=== PATIENT | male | born 1980 | race Caucasian/White ===

== ENCOUNTER 2017-01-30 02:25 | Inpatient (IN) | payer OTHER ==
[~2017-01-30] VITALS: Ht 175.3 cm; Wt 106.1 kg
[2017-01-30 02:43] LABS: BILIRUBIN,URINE NEGATIVE (NEG); GLUCOSE,URINE NEGATIVE (NEG); NITRITE,URINE NEGATIVE (NEG); PROTEIN,URINE 30 mg/dL (NEG-TRACE); UROBILINOGEN,URINE 0.2 mg/dL (0.2 mg/dL)
[2017-01-30] MEDS ORDERED: KETOROLAC TROMETHAMINE 30 MG/ML INJ. IV ONE (02:45)
[2017-01-30] MEDS ORDERED: fentaNYL PF VIAL 100 MCG/2 ML VIAL IV ONE ×2 (02:45→03:15)
[2017-01-30] MEDS ORDERED: IV NORMAL SALINE 1000ML BAG 1,000 ML IV ONE (02:45)
[2017-01-30 02:49] LABS: BACTERIA,URINE 0 /HPF (0-FEW); SQUAMOUS EPITHELIAL CELL,UR FEW /LPF
[2017-01-30 02:54] LABS: BASO % 0 % (0-3); EOS % 0 % (0-3); HEMATOCRIT 40.9 % (39.0-53.0); HEMOGLOBIN 13.6 g/dL (13.0-17.5); LYMPH # 2.4 x10^3/uL (1.0-4.8); LYMPH % 10 % (24-48); MEAN CORPUSCULAR HEMOGLOBIN 29 pg (25-35); MEAN CORPUSCULAR HGB CONC 33 g/dL (31-37); MEAN CORPUSCULAR VOLUME 87 fL (79-100); MONO % 6 % (0-9); NEUT % 84 % (31-73); PLATELET COUNT 300 x10^3/uL (140-400); RED BLOOD COUNT 4.73 x10^6/uL (4.30-5.70); WHITE BLOOD COUNT 23.1 x10^3/uL (4.0-11.0)
[2017-01-30] MEDS ORDERED: ONDANSETRON PF 4 MG/2 ML VIAL. IV ONE (03:00)
[2017-01-30 03:03] LABS: CREATININE 1.3 mg/dL (0.7-1.3); GFR 62.8; POTASSIUM 3.7 mmol/L (3.5-5.1)
[2017-01-30 03:18] LABS: PLT ESTIMATE ADEQUATE (ADEQUATE)
--- NOTE | 2017-01-30 03:21 | RAD ---
CT abdomen and pelvis without contrast Indication: Left flank pain. The patient has history of kidney stones. Axial imaging through the abdomen and pelvis was performed without contrast. PQRS STATEMENT One or more of the following individualized dose reduction techniques were utilized for this study: 1.Automated exposure control. 2.Adjustment of the mA and/orkVaccording to patient size. 3.Use of iterative reconstruction technique. No prior studies are available for comparison. The lung bases are clear. Liver and gallbladder are unremarkable. The pancreas and spleen are unremarkable. The right kidney contains tiny nonobstructing calculi. The left kidney is enlarged. There is fairly significant hydroureteronephrosis traced into the pelvis where there is a 5 millimeter calculus just above the UVJ. There is mild perinephric and periureteral stranding as well. The small and large bowel loops are normal caliber. There is no ascites. Impression: - 5 millimeter distal left ureteric calculus producing moderate hydroureteronephrosis. There are also tiny nonobstructing right renal calculi. Electronically signed by: Sergio Maxwell MD (Jan 30, 2017 03:19:49)
--- NOTE | 2017-01-30 03:26 | PHYS DOC ---
Past Medical History Past Medical History: Kidney Stone Past Surgical History: Other Additional Past Surgical Histo: RIGHT WRIST Alcohol Use: None Drug Use: None Adult General Chief Complaint Chief Complaint: FLANK PAIN HPI HPI 37-year-old male who's having extensive left lower quadrant pain that radiates somewhat into his left flank and left testicle. He states it's been this way for the last 3-4 hours. He had acute onset of his symptoms around 10 PM he states. He denies any dysuria or hematuria. He denies any fever or chills. He states he has had a kidney stone the past that felt somewhat similar. He denies any history of abdominal surgery. He denies any blood in his stool. He states he had a normal bowel movement earlier today. He has been able to eat and drink. Pt is speaking in complete sentences and in no acute distress at this time. He rates his pain a 10 out of 10 all localized to left lower quadrant. Review of Systems Review of Systems Constitutional: Denies fever or chills [] Eyes: Denies change in visual acuity, redness, or eye pain [] HENT: Denies nasal congestion or sore throat [] Respiratory: Denies cough or shortness of breath [] Cardiovascular: No additional information not addressed in HPI [] GI: Has abdominal pain, denies nausea, denies vomiting, bloody stools or diarrhea [] : Denies dysuria or hematuria [] Musculoskeletal: Denies back pain or joint pain [] Integument: Denies rash or skin lesions [] Neurologic: Denies headache, focal weakness or sensory changes [] Endocrine: Denies polyuria or polydipsia [] Current Medications Current Medications Current Medications Medications (Trade) Dose Ordered Sig/Lorene Start Time Stop Time Status Last Admin Dose Admin Fentanyl Citrate (Fentanyl 2ml Vial) 50 mcg 1X ONCE 01/30/17 03:15 01/30/17 03:25 DC 01/30/17 03:15 50 MCG Fentanyl Citrate 50 mcg 50 mcg 1X ONCE 01/30/17 02:45 01/30/17 03:06 DC 01/30/17 02:45 50 MCG Ketorolac Tromethamine (Toradol) 30 mg 1X ONCE 01/30/17 02:45 01/30/17 03:06 DC 01/30/17 02:45 30 MG Ondansetron HCl (Zofran) 4 mg 1X ONCE 01/30/17 03:00 01/30/17 03:06 DC 01/30/17 02:58 4 MG Sodium Chloride (Iv Sodium Chloride 0.9% 1000ml Bag) 1,000 ml @ 1,000 mls/hr 1X ONCE 01/30/17 02:45 01/30/17 03:44 DC 01/30/17 02:53 1,000 MLS/HR Allergies Allergies Allergies Coded Allergies Type Severity Reaction Last Updated Verified No Known Drug Allergies 01/30/17 No Physical Exam Physical Exam Constitutional: Well developed, well nourished, no acute distress, non-toxic appearance. [] HENT: Normocephalic, atraumatic, bilateral external ears normal, oropharynx moist, no oral exudates, nose normal. [] Eyes: PERRLA, EOMI, conjunctiva normal, no discharge. [] Neck: Normal range of motion, no tenderness, supple, no stridor. [] Cardiovascular:Heart rate regular rhythm, no murmur [] Lungs & Thorax: Bilateral breath sounds clear to auscultation [] Abdomen: Bowel sounds normal, soft, LLQ tenderness, no masses, no pulsatile masses. [] Skin: Warm, dry, no erythema, no rash. [] Back: No tenderness, left CVA tenderness. [] Extremities: No tenderness, no cyanosis, no clubbing, ROM intact, no edema. [] Neurologic: Alert and oriented X 3, normal motor function, normal sensory function, no focal deficits noted. [] Psychologic: Affect normal, judgement normal, mood normal. [] Current Patient Data Vital Signs Vital Signs Date Time Temp Pulse Resp B/P Pulse Ox O2 Delivery O2 Flow Rate FiO2 01/30/17 03:15 18 98 Room Air 01/30/17 03:09 81 151/80 01/30/17 02:30 98.3 98.3 Lab Values Laboratory Tests Test 01/30/17 02:30 01/30/17 02:45 Urine Collection Type Unknown Urine Color Yellow Urine Clarity Clear Urine pH 6.0 Urine Specific [place] 1.025 Urine Protein 30mg/dL (NEG-TRACE) Urine Glucose (UA) Negativemg/dL (NEG) Urine Ketones (Stick) Negativemg/dL (NEG) Urine Blood Moderate (NEG) Urine Nitrite Negative (NEG) Urine Bilirubin Negative (NEG) Urine Urobilinogen Dipstick 0.2mg/dL (0.2 mg/dL) Urine Leukocyte Esterase Negative (NEG) Urine RBC 11-20/HPF (0-2) Urine WBC 5-10/HPF (0-4) Urine Squamous Epithelial Cells Few/LPF Urine Bacteria 0/HPF (0-FEW) Urine Mucus Marked/LPF White Blood Count 23.1x10^3/uL (4.0-11.0) H Red Blood Count 4.73x10^6/uL (4.30-5.70) Hemoglobin 13.6g/dL (13.0-17.5) Hematocrit 40.9% (39.0-53.0) Mean Corpuscular Volume 87fL (79-100) Mean Corpuscular Hemoglobin 29pg (25-35) Mean Corpuscular Hemoglobin Concent 33g/dL (31-37) Red Cell Distribution Width 14.0% (11.5-14.5) Platelet Count 300x10^3/uL (140-400) Neutrophils (%) (Auto) 84% (31-73) H Lymphocytes (%) (Auto) 10% (24-48) L Monocytes (%) (Auto) 6% (0-9) Eosinophils (%) (Auto) 0% (0-3) Basophils (%) (Auto) 0% (0-3) Neutrophils # (Auto) 19.3x10^3uL (1.8-7.7) H Lymphocytes # (Auto) 2.4x10^3/uL (1.0-4.8) Monocytes # (Auto) 1.3x10^3/uL (0.0-1.1) H Eosinophils # (Auto) 0.1x10^3/uL (0.0-0.7) Basophils # (Auto) 0.0x10^3/uL (0.0-0.2) Segmented Neutrophils % 85% (35-66) H Band Neutrophils % 2% (0-9) Lymphocytes % 7% (24-48) L Monocytes % 6% (0-10) Platelet Estimate Adequate (ADEQUATE) Sodium Level 144mmol/L (136-145) Potassium Level 3.7mmol/L (3.5-5.1) Chloride Level 106mmol/L (98-107) Carbon Dioxide Level 27mmol/L (21-32) Anion Gap 11 (6-14) Blood Urea Nitrogen 15mg/dL (8-26) Creatinine 1.3mg/dL (0.7-1.3) Estimated GFR (Cockcroft-Gault) 62.8 Glucose Level 121mg/dL (70-99) H Calcium Level 9.0mg/dL (8.5-10.1) Laboratory Tests 01/30/17 02:45 Laboratory Tests 01/30/17 02:45 EKG EKG [] Radiology/Procedures Radiology/Procedures CT abdomen and pelvis without contrast Indication: Left flank pain. The patient has history of kidney stones. Axial imaging through the abdomen and pelvis was performed without contrast. PQRS STATEMENT One or more of the following individualized dose reduction techniques were utilized for this study: 1.Automated exposure control. 2.Adjustment of the mA and/orkVaccording to patient size. 3.Use of iterative reconstruction technique. No prior studies are available for comparison. The lung bases are clear. Liver and gallbladder are unremarkable. The pancreas and spleen are unremarkable. The right kidney contains tiny nonobstructing calculi. The left kidney is enlarged. There is fairly significant hydroureteronephrosis traced into the pelvis where there is a 5 millimeter calculus just above the UVJ. There is mild perinephric and periureteral stranding as well. The small and large bowel loops are normal caliber. There is no ascites. Impression: - 5 millimeter distal left ureteric calculus producing moderate hydroureteronephrosis. There are also tiny nonobstructing right renal calculi. Course & Med Decision Making Course & Med Decision Making Pertinent Labs and Imaging studies reviewed. (See chart for details) His laboratory workup is remarkable for an elevated white count. CT of his abdomen and pelvis demonstrates a 5 mm distal ureteral calculus with moderate hydroureteronephrosis. He'll be admitted to the hospital with urology consult as I believe his stone is a complicated stone and will be difficult to pass due to its size and significant perinephric stranding and hydronephrosis. I discussed the need to admit the patient with the hospitalist, Dr. Portillo, who agreed to accept the patient for further evaluation and treatment. Dragon Disclaimer Dragon Disclaimer This electronic medical record was generated, in whole or in part, using a voice recognition dictation system. Departure Departure Impression: Primary Impression: Hydronephrosis Additional Impression: Ureteral calculus Disposition: ADMITTED INPATIENT Admitting Physician: Liam Shearer Condition: STABLE Referrals: MARCIAL ASKEW (PCP) Problem Qualifiers TEMITOPE LEON DO Jan 30, 2017 03:26
[2017-01-30] MEDS ORDERED: ONDANSETRON PF 4 MG/2 ML VIAL. IV PRN (03:45)
[2017-01-30] MEDS ORDERED: MORPHINE SULFATE 4 MG/ML DISP.SYRIN. IV PRN (03:45)
[2017-01-30 04:25] VITALS: BP 163/87
[2017-01-30] MEDS: IV NORMAL SALINE 1000ML BAG 1,000 ML IV SCH ×3 (04:31→19:45)
--- NOTE | 2017-01-30 06:56 | ACF ---
Admit Criteria Forms Admit Criteria Forms Admit Criteria Forms UROLOGIC DISEASE [facility] Clinical Indications for Admission to Inpatient Care (Place ' X' for any and all applicable criteria): Hospital admission is needed for appropriate care of the patient because of 1 or more of the following: [X]I. New-onset Reduced urine output, or hydronephrosis remaining after emergency or observation level care (as appropriate ) [ ]II. Renal disease needing inpatient care indicated by 1 or more of the following(2)(3)(4): [ ]a) Acute renal failure [ ]b) Significant uremic complications [ ]c) Acute kidney injury (that does not qualify as Acute renal failure ) requiring inpatient care indicated by ALL of the following(5)(6)(7)(8) (9): [ ]i) Worsening clinical status (eg, rising creatinine) despite outpatient and observation care treatment (eg, hydration) [ ]ii) Acute kidney injury indicated by 1 or more of the following: [ ]1) 2-fold or more rise in serum creatinine from baseline [ ]2) Reduction of more than 50% in estimated glomerular filtration rate from baseline [ ]3) Urine output less than 0.5 mL/kg/hr for 12 hours despite adequate volume status [ ]d) Systemic cause (eg, Goodpasture syndrome ) needing inpatient care [ ]e) Rapidly progressive renal disease needing inpatient care (eg, plasmapheresis, immunosuppression ) Anasarca needing inpatient care [ ]f) Hemoptysis [ ]g) Hemolysis, thrombosis, or infraction [ ]h) Anasarca needing inpatient care [ ]III. New-onset or uncontrolled nephrogenic diabetes insipidus [ ]IV. Urologic infection requiring inpatient care as indicated by 1 or more of the following(10)(11)(12): [ ]a) Hemodynamic instability [ ]b) Dehydration that is severe or persistent [ ]c) Failure of outpatient treatment [ ]d) Haider's gangrene [ ]e) Urinary obstruction [ ]f) Immunocompromised state (eg, chronic steroid use ) [ ]g) Known renal or urologic abnormalities(eg, indwelling catheter, structural abnormalities ) [ ]h) Recent urologic manipulation or procedure Urinary obstruction [ ]i) Abscess requiring drainage Immunocompromised state [ ]V. Acute urinary retention requiring inpatient management as indicated by ANY ONE of the following(1)(13): [ ]a) Retention cannot be alleviated via emergency or observation level care (eg, urinary catheter placement) [ ]b) Hemodynamic instability [ ]c) Acute neurologic etiology (eg, cauda equina) [ ]d) Dehydration or other complications not manageable with emergency or observation level care [ ]e) Acute kidney injury (that does not qualify as Acute renal failure ) requiring inpatient care indicated by ALL of the following(5)(6)(7)(8) (9): [ ]i) Acute kidney injury indicated by ANY ONE of the following: [ ]1) 2-fold or more rise in serum creatinine from baseline [ ]2) Reduction of more than 50% in estimated glomerular filtration rate from baseline [ ]ii) Worsening clinical status (eg, rising creatinine) despite outpatient and observation care treatment (eg, hydration) [ ]. Gross hematuria requiring inpatient management as indicated by ANY ONE of the following(1)(2): [ ]a) Evidence of renal obstruction [ ]b) Reduced urine output [ ]c) Clot retention after urinary catheterization and irrigation [ ]d) Severe Anemia [ ]e) Systemic cause needing inpatient treatment (eg, Goodpasture syndrome) [ ]VII. Priapism not responsive to emergency or observation care treatment [ ]VII. Scrotal, testicular, or epididymal disorder requiring inpatient care indicated by 1 or more of the following(1)(14)(15)(16): [ ]a) Scrotal edema or infection not manageable with emergency or observation level care [ ]b) Orchitis not manageable with emergency or observation level care [ ]c) Epididymitis not manageable with emergency or observation level of care [ ]d) Other scrotal, testicular, or epididymal disorder (eg, infection, inflammation) not manageable with emergency or observation level care [ ]IX. Complications of transplanted kidney indicated by 1 or more of the following [ ]a) Acute graft rejection requiring inpatient management (eg, intravenous immunosuppression) [ ]b) Acute kidney injury indicated by ALL of the following i) Acute kidney injury indicated by 1 or more of the following 1) 2-fold or more rise in serum creatinine from baseline 2) Reduction of more than 50% in estimated glomerular filtration rate from baseline 3) Urine output less than 0.5 mL/kg/hr for 12 hours despite adequate volume status ii) Kidney injury too severe or not responsive to outpatient and observation care treatment (eg, hydration) [ ]c) Infection requiring inpatient management (eg, Hemodynamic instability, need for intravenous antimicrobial treatment) [ ]d) Other complication of transplanted kidney requiring patient management (eg, severe diarrhea leading to malabsorption) [ ]X. Trauma to renal, genital, or urologic system requiring inpatient medical care [ ]XI. Urologic Disease condition, symptom, or finding for which emergency and observation care have failed or are not considered appropriate. The original [employer] [facility] [employer] content created by [employer] has been revised. The portions of the content which have been revised are identified through the use of italic text or in bold, and [facility] [employer] has neither reviewed nor approved the modified material. All other unmodified content is copyright [employer] [facility]. Please see references footnoted in the original [employer] [facility] [employer] edition 2016 MICHELLE ARREOLA Jan 30, 2017 06:56
[2017-01-30 07:00] VITALS: BP 132/87
--- NOTE | 2017-01-30 08:55 | PDOC1 ---
History and Physical Date of Admission Date of Admission DATE: 01/30/17 TIME: 08:47 Identification/Chief Complaint Chief Complaint left flank pain Problems: Source Source: Chart review, Patient History of Present Illness History of Present Illness Mr. Jovel, 37-year-old male who's having extensive left lower quadrant pain that radiates. He has prior stone 2 years ago, passed spontaneuously. No home meds and had been feeling well until late last night Acute pain was 10/10, now 4/10 He denies any dysuria or hematuria, fever or chills. overall feels better than yesterday Past Medical History Cardiovascular: No pertinent hx Pulmonary: No pertinent hx ENT: No pertinent hx Renal/: Other Past Surgical History Past Surgical History: No pertinent history Family History Family History: No Significant Social History Smoke: No ALCOHOL: none Current Problem List Problem List Problems Medical Problems: (1) Hydronephrosis Status: Acute (2) Ureteral calculus Status: Acute Problems: Current Medications Current Medications Current Medications Ketorolac Tromethamine (Toradol) 30 mg 1X ONCE IV Last administered on 02:45; Start 01/30/17 at 02:45; Stop 01/30/17 at 03:06; Status DC Fentanyl Citrate 50 mcg 50 mcg 1X ONCE IV Last administered on 01/30/17 02:45 ; Start 01/30/17 at 02:45; Stop 01/30/17 at 03:06; Status DC Sodium Chloride (Iv Sodium Chloride 0.9% 1000ml Bag) 1,000 ml @ 1,000 mls/hr 1X ONCE IV Last administered on 01/30/17 02:53; Start 01/30/17 at 02:45; Stop 01/30/17 at 03:44; Status DC Ondansetron HCl (Zofran) 4 mg 1X ONCE IV Last administered on 01/30/17 02:58 ; Start 01/30/17 at 03:00; Stop 01/30/17 at 03:06; Status DC Fentanyl Citrate (Fentanyl 2ml Vial) 50 mcg 1X ONCE IV Last administered on 03:15; Start 01/30/17 at 03:15; Stop 01/30/17 at 03:25; Status DC Ondansetron HCl (Zofran) 4 mg PRN Q8HRS PRN IV NAUSEA/VOMITING; Start 01/30/17 at 03:45; Stop 01/31/17 at 03:44 Morphine Sulfate 4 mg 4 mg PRN Q2HR PRN IV PAIN; Start 01/30/17 at 03:45; Stop 01/31/17 at 03:44 Sodium Chloride (Iv Sodium Chloride 0.9% 1000ml Bag) 1,000 ml @ 125 mls/hr Q8H IV Last administered on 01/30/17t 04:31; Start 01/30/17 at 03:45; Stop at 03:44 Tamsulosin HCl (Flomax) 0.4 mg DAILY PO ; Start 01/30/17 at 09:00 Fentanyl Citrate (Fentanyl 2ml Vial) 50 mcg PRN Q2HR PRN IV PAIN; Start at 08:30 Allergies Allergies: Coded Allergies: No Known Drug Allergies (Unverified , 01/30/17) ROS General: No: Appetite, Chills, Fatigue, Malaise, Night Sweats, Other PSYCHOLOGICAL ROS: No: Anxiety, Behavioral Disorder, Concentration difficultie , Decreased libido, Depression, Disorientation, Hallucinations, Hostility, Irritablity, Memory difficulties, Mood Swings, Obsessive thoughts, Other, Physical abuse, Sexual abuse, Sleep disturbances, Suicidal ideation Eyes: No Blurry vision, No Decreased vision, No Double vision, No Dry eyes, No Excessive tearing, No Eye Pain, No Itchy Eyes, No Loss of vision, No Other, No Photophobia, No Scotomata, No Uses contacts, No Uses glasses HEENT: YES: Heacaches, No: Epistaxis, Hearing change, Nasal congestion, Nasal discharge, Oral lesions, Other, Sinus pain, Sneezing, Snoring, Sore Throat, Tinnitus, Vertigo, Visual Changes, Vocal changes Respiratory: No: Cough, Hemoptysis, Orthopnea, Other, Pleuritic Pain, SOB with excertion, Shortness of breath, Sputum Changes, Stridor, Tachypnea, Wheezing Cardiovascular: No Chest Pain, No Edema, No Lt Headedness, No Orthopnea, No Other, No Palpitations, No Paroxysmal Noc. Dyspnea Gastrointestinal: No Abdominal Pain, No Constipation, No Diarrhea, No Hematochezia, No Melena, No Nausea, No Other, No Vomiting Genitourinary: No , No , No , No , No , No , No , No Discharge, No Dysuria, No Flank Pain, No Frequency, No Hematuria, No Incontinence, No Other, No Pain, No Retention, No Urgency Musculoskeletal: No Gait Disturbance, No Joint Pain, No Joint Stiffness, No Joint Swelling, No Muscle Pain, No Muscular Weakness, No Other, No Pain In:, No Swelling In: Neurological: No Behavorial Changes, No Bowel/Bladder ControlChng, No Confusion , No Dizziness, No Gait Disturbance, No Headaches, No Impaired Coord/balance, No Memory Loss, No Numbness/Tingling, No Other, No Seizures, No Speech Problems , No Tremors, No Visual Changes, No Weakness Skin: No Acne, No Dry Skin, No Eczema, No Hair Changes, No Lumps, No Mole Changes, No Mottling, No Nail Changes, No Other, No Pruritus, No Rash, No Skin Lesion Changes Physical Exam General: Alert, Cooperative, mild distress HEENT: Atraumatic, PERRLA, EOMI, Mucous membr. moist/pink Heart: no gallops, no murmurs Abdomen: Normal bowel sounds, Soft Rectal Exam: not examined Extremities: No clubbing, No cyanosis, No edema Skin: No significant lesion Neuro: Normal speech, Normal tone Vitals Vitals Vital Signs Date Time Temp Pulse Resp B/P Pulse Ox O2 Delivery O2 Flow Rate FiO2 01/30/17 04:25 97.9 98 18 163/87 96 Room Air 97.9 Labs Labs Laboratory Tests Test 01/30/17 02:30 01/30/17 02:45 Urine Collection Type Unknown Urine Color Yellow Urine Clarity Clear Urine pH 6.0 Urine Specific [place] 1.025 Urine Protein 30mg/dL (NEG-TRACE) Urine Glucose (UA) Negativemg/dL (NEG) Urine Ketones (Stick) Negativemg/dL (NEG) Urine Blood Moderate (NEG) Urine Nitrite Negative (NEG) Urine Bilirubin Negative (NEG) Urine Urobilinogen Dipstick 0.2mg/dL (0.2 mg/dL) Urine Leukocyte Esterase Negative (NEG) Urine RBC 11-20/HPF (0-2) Urine WBC 5-10/HPF (0-4) Urine Squamous Epithelial Cells Few/LPF Urine Bacteria 0/HPF (0-FEW) Urine Mucus Marked/LPF White Blood Count 23.1x10^3/uL (4.0-11.0) Red Blood Count 4.73x10^6/uL (4.30-5.70) Hemoglobin 13.6g/dL (13.0-17.5) Hematocrit 40.9% (39.0-53.0) Mean Corpuscular Volume 87fL (79-100) Mean Corpuscular Hemoglobin 29pg (25-35) Mean Corpuscular Hemoglobin Concent 33g/dL (31-37) Red Cell Distribution Width 14.0% (11.5-14.5) Platelet Count 300x10^3/uL (140-400) Neutrophils (%) (Auto) 84% (31-73) Lymphocytes (%) (Auto) 10% (24-48) Monocytes (%) (Auto) 6% (0-9) Eosinophils (%) (Auto) 0% (0-3) Basophils (%) (Auto) 0% (0-3) Neutrophils # (Auto) 19.3x10^3uL (1.8-7.7) Lymphocytes # (Auto) 2.4x10^3/uL (1.0-4.8) Monocytes # (Auto) 1.3x10^3/uL (0.0-1.1) Eosinophils # (Auto) 0.1x10^3/uL (0.0-0.7) Basophils # (Auto) 0.0x10^3/uL (0.0-0.2) Segmented Neutrophils % 85% (35-66) Band Neutrophils % 2% (0-9) Lymphocytes % 7% (24-48) Monocytes % 6% (0-10) Platelet Estimate Adequate (ADEQUATE) Sodium Level 144mmol/L (136-145) Potassium Level 3.7mmol/L (3.5-5.1) Chloride Level 106mmol/L (98-107) Carbon Dioxide Level 27mmol/L (21-32) Anion Gap 11 (6-14) Blood Urea Nitrogen 15mg/dL (8-26) Creatinine 1.3mg/dL (0.7-1.3) Estimated GFR (Cockcroft-Gault) 62.8 Glucose Level 121mg/dL (70-99) Calcium Level 9.0mg/dL (8.5-10.1) Laboratory Tests Test 01/30/17 02:30 01/30/17 02:45 Urine Collection Type Unknown Urine Color Yellow Urine Clarity Clear Urine pH 6.0 Urine Specific [place] 1.025 Urine Protein 30mg/dL (NEG-TRACE) Urine Glucose (UA) Negativemg/dL (NEG) Urine Ketones (Stick) Negativemg/dL (NEG) Urine Blood Moderate (NEG) Urine Nitrite Negative (NEG) Urine Bilirubin Negative (NEG) Urine Urobilinogen Dipstick 0.2mg/dL (0.2 mg/dL) Urine Leukocyte Esterase Negative (NEG) Urine RBC 11-20/HPF (0-2) Urine WBC 5-10/HPF (0-4) Urine Squamous Epithelial Cells Few/LPF Urine Bacteria 0/HPF (0-FEW) Urine Mucus Marked/LPF White Blood Count 23.1x10^3/uL (4.0-11.0) Red Blood Count 4.73x10^6/uL (4.30-5.70) Hemoglobin 13.6g/dL (13.0-17.5) Hematocrit 40.9% (39.0-53.0) Mean Corpuscular Volume 87fL (79-100) Mean Corpuscular Hemoglobin 29pg (25-35) Mean Corpuscular Hemoglobin Concent 33g/dL (31-37) Red Cell Distribution Width 14.0% (11.5-14.5) Platelet Count 300x10^3/uL (140-400) Neutrophils (%) (Auto) 84% (31-73) Lymphocytes (%) (Auto) 10% (24-48) Monocytes (%) (Auto) 6% (0-9) Eosinophils (%) (Auto) 0% (0-3) Basophils (%) (Auto) 0% (0-3) Neutrophils # (Auto) 19.3x10^3uL (1.8-7.7) Lymphocytes # (Auto) 2.4x10^3/uL (1.0-4.8) Monocytes # (Auto) 1.3x10^3/uL (0.0-1.1) Eosinophils # (Auto) 0.1x10^3/uL (0.0-0.7) Basophils # (Auto) 0.0x10^3/uL (0.0-0.2) Segmented Neutrophils % 85% (35-66) Band Neutrophils % 2% (0-9) Lymphocytes % 7% (24-48) Monocytes % 6% (0-10) Platelet Estimate Adequate (ADEQUATE) Sodium Level 144mmol/L (136-145) Potassium Level 3.7mmol/L (3.5-5.1) Chloride Level 106mmol/L (98-107) Carbon Dioxide Level 27mmol/L (21-32) Anion Gap 11 (6-14) Blood Urea Nitrogen 15mg/dL (8-26) Creatinine 1.3mg/dL (0.7-1.3) Estimated GFR (Cockcroft-Gault) 62.8 Glucose Level 121mg/dL (70-99) Calcium Level 9.0mg/dL (8.5-10.1) VTE Prophylaxis Ordered VTE Prophylaxis Devices: Yes VTE Pharmacological Prophylaxi: Contraindicated Assessment/Plan Assessment/Plan Renal colic Urolithiastis SIRS RUFINO MORALES MD Jan 30, 2017 08:55
--- NOTE | 2017-01-30 09:00 | PDOC ---
PROGRESS NOTES Subjective Subjective Pt. with 5 mm left distal stone Objective Objective Vital Signs Date Time Temp Pulse Resp B/P Pulse Ox O2 Delivery O2 Flow Rate FiO2 01/30/17 07:00 97.9 71 18 132/87 99 Room Air 97.9 Intake and Output 01/30/17 07:00 Intake Total 0 ml Output Total 150 ml Balance -150 ml Intake Oral 0 ml Output Urine Total 150 ml Physical Exam Physical Exam left abd pain Assessment Assessment Pt. with 5 mm left distal stone. I discussed the options, alternatives, benefits, risks, and possible complications of medical expulsive therapy vs. surgical intervention with cystoscopy, left retrograde pyelogram and left ureteral stent placement. Pt. will consider options and we will proceed accordingly Problems Medical Problems: (1) Hydronephrosis Status: Acute (2) Ureteral calculus Status: Acute Comment Review of Relevant I have reviewed the following items haily (where applicable) has been applied. Labs Laboratory Tests Test 01/30/17 02:30 01/30/17 02:45 Urine Collection Type Unknown Urine Color Yellow Urine Clarity Clear Urine pH 6.0 Urine Specific [place] 1.025 Urine Protein 30mg/dL (NEG-TRACE) Urine Glucose (UA) Negativemg/dL (NEG) Urine Ketones (Stick) Negativemg/dL (NEG) Urine Blood Moderate (NEG) Urine Nitrite Negative (NEG) Urine Bilirubin Negative (NEG) Urine Urobilinogen Dipstick 0.2mg/dL (0.2 mg/dL) Urine Leukocyte Esterase Negative (NEG) Urine RBC 11-20/HPF (0-2) Urine WBC 5-10/HPF (0-4) Urine Squamous Epithelial Cells Few/LPF Urine Bacteria 0/HPF (0-FEW) Urine Mucus Marked/LPF White Blood Count 23.1x10^3/uL (4.0-11.0) Red Blood Count 4.73x10^6/uL (4.30-5.70) Hemoglobin 13.6g/dL (13.0-17.5) Hematocrit 40.9% (39.0-53.0) Mean Corpuscular Volume 87fL (79-100) Mean Corpuscular Hemoglobin 29pg (25-35) Mean Corpuscular Hemoglobin Concent 33g/dL (31-37) Red Cell Distribution Width 14.0% (11.5-14.5) Platelet Count 300x10^3/uL (140-400) Neutrophils (%) (Auto) 84% (31-73) Lymphocytes (%) (Auto) 10% (24-48) Monocytes (%) (Auto) 6% (0-9) Eosinophils (%) (Auto) 0% (0-3) Basophils (%) (Auto) 0% (0-3) Neutrophils # (Auto) 19.3x10^3uL (1.8-7.7) Lymphocytes # (Auto) 2.4x10^3/uL (1.0-4.8) Monocytes # (Auto) 1.3x10^3/uL (0.0-1.1) Eosinophils # (Auto) 0.1x10^3/uL (0.0-0.7) Basophils # (Auto) 0.0x10^3/uL (0.0-0.2) Segmented Neutrophils % 85% (35-66) Band Neutrophils % 2% (0-9) Lymphocytes % 7% (24-48) Monocytes % 6% (0-10) Platelet Estimate Adequate (ADEQUATE) Sodium Level 144mmol/L (136-145) Potassium Level 3.7mmol/L (3.5-5.1) Chloride Level 106mmol/L (98-107) Carbon Dioxide Level 27mmol/L (21-32) Anion Gap 11 (6-14) Blood Urea Nitrogen 15mg/dL (8-26) Creatinine 1.3mg/dL (0.7-1.3) Estimated GFR (Cockcroft-Gault) 62.8 Glucose Level 121mg/dL (70-99) Calcium Level 9.0mg/dL (8.5-10.1) Laboratory Tests Test 01/30/17 02:30 01/30/17 02:45 Urine Collection Type Unknown Urine Color Yellow Urine Clarity Clear Urine pH 6.0 Urine Specific [place] 1.025 Urine Protein 30mg/dL (NEG-TRACE) Urine Glucose (UA) Negativemg/dL (NEG) Urine Ketones (Stick) Negativemg/dL (NEG) Urine Blood Moderate (NEG) Urine Nitrite Negative (NEG) Urine Bilirubin Negative (NEG) Urine Urobilinogen Dipstick 0.2mg/dL (0.2 mg/dL) Urine Leukocyte Esterase Negative (NEG) Urine RBC 11-20/HPF (0-2) Urine WBC 5-10/HPF (0-4) Urine Squamous Epithelial Cells Few/LPF Urine Bacteria 0/HPF (0-FEW) Urine Mucus Marked/LPF White Blood Count 23.1x10^3/uL (4.0-11.0) Red Blood Count 4.73x10^6/uL (4.30-5.70) Hemoglobin 13.6g/dL (13.0-17.5) Hematocrit 40.9% (39.0-53.0) Mean Corpuscular Volume 87fL (79-100) Mean Corpuscular Hemoglobin 29pg (25-35) Mean Corpuscular Hemoglobin Concent 33g/dL (31-37) Red Cell Distribution Width 14.0% (11.5-14.5) Platelet Count 300x10^3/uL (140-400) Neutrophils (%) (Auto) 84% (31-73) Lymphocytes (%) (Auto) 10% (24-48) Monocytes (%) (Auto) 6% (0-9) Eosinophils (%) (Auto) 0% (0-3) Basophils (%) (Auto) 0% (0-3) Neutrophils # (Auto) 19.3x10^3uL (1.8-7.7) Lymphocytes # (Auto) 2.4x10^3/uL (1.0-4.8) Monocytes # (Auto) 1.3x10^3/uL (0.0-1.1) Eosinophils # (Auto) 0.1x10^3/uL (0.0-0.7) Basophils # (Auto) 0.0x10^3/uL (0.0-0.2) Segmented Neutrophils % 85% (35-66) Band Neutrophils % 2% (0-9) Lymphocytes % 7% (24-48) Monocytes % 6% (0-10) Platelet Estimate Adequate (ADEQUATE) Sodium Level 144mmol/L (136-145) Potassium Level 3.7mmol/L (3.5-5.1) Chloride Level 106mmol/L (98-107) Carbon Dioxide Level 27mmol/L (21-32) Anion Gap 11 (6-14) Blood Urea Nitrogen 15mg/dL (8-26) Creatinine 1.3mg/dL (0.7-1.3) Estimated GFR (Cockcroft-Gault) 62.8 Glucose Level 121mg/dL (70-99) Calcium Level 9.0mg/dL (8.5-10.1) Medications Current Medications Ketorolac Tromethamine (Toradol) 30 mg 1X ONCE IV Last administered on 02:45; Start 01/30/17 at 02:45; Stop 01/30/17 at 03:06; Status DC Fentanyl Citrate 50 mcg 50 mcg 1X ONCE IV Last administered on 01/30/17 02:45 ; Start 01/30/17 at 02:45; Stop 01/30/17 at 03:06; Status DC Sodium Chloride (Iv Sodium Chloride 0.9% 1000ml Bag) 1,000 ml @ 1,000 mls/hr 1X ONCE IV Last administered on 01/30/17 02:53; Start 01/30/17 at 02:45; Stop 01/30/17 at 03:44; Status DC Ondansetron HCl (Zofran) 4 mg 1X ONCE IV Last administered on 01/30/17 02:58 ; Start 01/30/17 at 03:00; Stop 01/30/17 at 03:06; Status DC Fentanyl Citrate (Fentanyl 2ml Vial) 50 mcg 1X ONCE IV Last administered on 03:15; Start 01/30/17 at 03:15; Stop 01/30/17 at 03:25; Status DC Ondansetron HCl (Zofran) 4 mg PRN Q8HRS PRN IV NAUSEA/VOMITING; Start 01/30/17 at 03:45; Stop 01/31/17 at 03:44 Morphine Sulfate 4 mg 4 mg PRN Q2HR PRN IV PAIN; Start 01/30/17 at 03:45; Stop 01/31/17 at 03:44 Sodium Chloride (Iv Sodium Chloride 0.9% 1000ml Bag) 1,000 ml @ 125 mls/hr Q8H IV Last administered on 01/30/17 04:31; Start 01/30/17 at 03:45; Stop at 03:44 Tamsulosin HCl (Flomax) 0.4 mg DAILY PO ; Start 01/30/17 at 09:00 Fentanyl Citrate (Fentanyl 2ml Vial) 50 mcg PRN Q2HR PRN IV PAIN; Start at 08:30 Vitals/I & O Vital Sign - Last 24 Hours 01/30/17 01/30/17 01/30/17 01/30/17 02:30 02:45 03:09 03:15 Temp 98.3 98.3 Pulse 73 81 Resp B/P 183/106 151/80 Pulse Ox 98 98 97 98 O2 Delivery Room Air Room Air Room Air Room Air 01/30/17 01/30/17 01/30/17 01/30/17 03:32 04:25 04:25 07:00 Temp 97.9 97.9 97.9 97.9 Pulse 90 98 71 Resp B/P 138/74 163/87 132/87 Pulse Ox 97 96 99 O2 Delivery Room Air Room Air Room Air Room Air Intake and Output 01/29/17 01/29/17 01/30/17 15:00 23:00 07:00 Intake Total 0 ml Output Total 150 ml Balance -150 ml CHICO TAYLOR MD Jan 30, 2017 09:00
[2017-01-30] MEDS: TAMSULOSIN 0.4 MG CAP.ER.24H. PO SCH (09:30)
[2017-01-30] MEDS: fentaNYL PF VIAL 100 MCG/2 ML VIAL IV PRN ×2 (09:36→22:32)
--- NOTE | 2017-01-30 10:37 | PDOC ---
PROGRESS NOTES Subjective Subjective Pt. feeling better Objective Objective Vital Signs Date Time Temp Pulse Resp B/P Pulse Ox O2 Delivery O2 Flow Rate FiO2 01/30/17 09:36 16 Room Air 01/30/17 07:00 97.9 71 132/87 99 97.9 Intake and Output 01/30/17 07:00 Intake Total 0 ml Output Total 150 ml Balance -150 ml Intake Oral 0 ml Output Urine Total 150 ml Physical Exam Physical Exam less discomfort Assessment Assessment medical expulsive therapy today. Re-assess in am Problems Medical Problems: (1) Hydronephrosis Status: Acute (2) Ureteral calculus Status: Acute Comment Review of Relevant I have reviewed the following items haily (where applicable) has been applied. Labs Laboratory Tests Test 01/30/17 02:30 01/30/17 02:45 Urine Collection Type Unknown Urine Color Yellow Urine Clarity Clear Urine pH 6.0 Urine Specific [place] 1.025 Urine Protein 30mg/dL (NEG-TRACE) Urine Glucose (UA) Negativemg/dL (NEG) Urine Ketones (Stick) Negativemg/dL (NEG) Urine Blood Moderate (NEG) Urine Nitrite Negative (NEG) Urine Bilirubin Negative (NEG) Urine Urobilinogen Dipstick 0.2mg/dL (0.2 mg/dL) Urine Leukocyte Esterase Negative (NEG) Urine RBC 11-20/HPF (0-2) Urine WBC 5-10/HPF (0-4) Urine Squamous Epithelial Cells Few/LPF Urine Bacteria 0/HPF (0-FEW) Urine Mucus Marked/LPF White Blood Count 23.1x10^3/uL (4.0-11.0) Red Blood Count 4.73x10^6/uL (4.30-5.70) Hemoglobin 13.6g/dL (13.0-17.5) Hematocrit 40.9% (39.0-53.0) Mean Corpuscular Volume 87fL (79-100) Mean Corpuscular Hemoglobin 29pg (25-35) Mean Corpuscular Hemoglobin Concent 33g/dL (31-37) Red Cell Distribution Width 14.0% (11.5-14.5) Platelet Count 300x10^3/uL (140-400) Neutrophils (%) (Auto) 84% (31-73) Lymphocytes (%) (Auto) 10% (24-48) Monocytes (%) (Auto) 6% (0-9) Eosinophils (%) (Auto) 0% (0-3) Basophils (%) (Auto) 0% (0-3) Neutrophils # (Auto) 19.3x10^3uL (1.8-7.7) Lymphocytes # (Auto) 2.4x10^3/uL (1.0-4.8) Monocytes # (Auto) 1.3x10^3/uL (0.0-1.1) Eosinophils # (Auto) 0.1x10^3/uL (0.0-0.7) Basophils # (Auto) 0.0x10^3/uL (0.0-0.2) Segmented Neutrophils % 85% (35-66) Band Neutrophils % 2% (0-9) Lymphocytes % 7% (24-48) Monocytes % 6% (0-10) Platelet Estimate Adequate (ADEQUATE) Sodium Level 144mmol/L (136-145) Potassium Level 3.7mmol/L (3.5-5.1) Chloride Level 106mmol/L (98-107) Carbon Dioxide Level 27mmol/L (21-32) Anion Gap 11 (6-14) Blood Urea Nitrogen 15mg/dL (8-26) Creatinine 1.3mg/dL (0.7-1.3) Estimated GFR (Cockcroft-Gault) 62.8 Glucose Level 121mg/dL (70-99) Calcium Level 9.0mg/dL (8.5-10.1) Laboratory Tests Test 01/30/17 02:30 01/30/17 02:45 Urine Collection Type Unknown Urine Color Yellow Urine Clarity Clear Urine pH 6.0 Urine Specific [place] 1.025 Urine Protein 30mg/dL (NEG-TRACE) Urine Glucose (UA) Negativemg/dL (NEG) Urine Ketones (Stick) Negativemg/dL (NEG) Urine Blood Moderate (NEG) Urine Nitrite Negative (NEG) Urine Bilirubin Negative (NEG) Urine Urobilinogen Dipstick 0.2mg/dL (0.2 mg/dL) Urine Leukocyte Esterase Negative (NEG) Urine RBC 11-20/HPF (0-2) Urine WBC 5-10/HPF (0-4) Urine Squamous Epithelial Cells Few/LPF Urine Bacteria 0/HPF (0-FEW) Urine Mucus Marked/LPF White Blood Count 23.1x10^3/uL (4.0-11.0) Red Blood Count 4.73x10^6/uL (4.30-5.70) Hemoglobin 13.6g/dL (13.0-17.5) Hematocrit 40.9% (39.0-53.0) Mean Corpuscular Volume 87fL (79-100) Mean Corpuscular Hemoglobin 29pg (25-35) Mean Corpuscular Hemoglobin Concent 33g/dL (31-37) Red Cell Distribution Width 14.0% (11.5-14.5) Platelet Count 300x10^3/uL (140-400) Neutrophils (%) (Auto) 84% (31-73) Lymphocytes (%) (Auto) 10% (24-48) Monocytes (%) (Auto) 6% (0-9) Eosinophils (%) (Auto) 0% (0-3) Basophils (%) (Auto) 0% (0-3) Neutrophils # (Auto) 19.3x10^3uL (1.8-7.7) Lymphocytes # (Auto) 2.4x10^3/uL (1.0-4.8) Monocytes # (Auto) 1.3x10^3/uL (0.0-1.1) Eosinophils # (Auto) 0.1x10^3/uL (0.0-0.7) Basophils # (Auto) 0.0x10^3/uL (0.0-0.2) Segmented Neutrophils % 85% (35-66) Band Neutrophils % 2% (0-9) Lymphocytes % 7% (24-48) Monocytes % 6% (0-10) Platelet Estimate Adequate (ADEQUATE) Sodium Level 144mmol/L (136-145) Potassium Level 3.7mmol/L (3.5-5.1) Chloride Level 106mmol/L (98-107) Carbon Dioxide Level 27mmol/L (21-32) Anion Gap 11 (6-14) Blood Urea Nitrogen 15mg/dL (8-26) Creatinine 1.3mg/dL (0.7-1.3) Estimated GFR (Cockcroft-Gault) 62.8 Glucose Level 121mg/dL (70-99) Calcium Level 9.0mg/dL (8.5-10.1) Medications Current Medications Ketorolac Tromethamine (Toradol) 30 mg 1X ONCE IV Last administered on 02:45; Start 01/30/17 at 02:45; Stop 01/30/17 at 03:06; Status DC Fentanyl Citrate 50 mcg 50 mcg 1X ONCE IV Last administered on 01/30/17 02:45 ; Start 01/30/17 at 02:45; Stop 01/30/17 at 03:06; Status DC Sodium Chloride (Iv Sodium Chloride 0.9% 1000ml Bag) 1,000 ml @ 1,000 mls/hr 1X ONCE IV Last administered on 01/30/17 02:53; Start 01/30/17 at 02:45; Stop 01/30/17 at 03:44; Status DC Ondansetron HCl (Zofran) 4 mg 1X ONCE IV Last administered on 01/30/17 02:58 ; Start 01/30/17 at 03:00; Stop 01/30/17 at 03:06; Status DC Fentanyl Citrate (Fentanyl 2ml Vial) 50 mcg 1X ONCE IV Last administered on 03:15; Start 01/30/17 at 03:15; Stop 01/30/17 at 03:25; Status DC Ondansetron HCl (Zofran) 4 mg PRN Q8HRS PRN IV NAUSEA/VOMITING; Start 01/30/17 at 03:45; Stop 01/31/17 at 03:44 Morphine Sulfate 4 mg 4 mg PRN Q2HR PRN IV PAIN; Start 01/30/17 at 03:45; Stop 01/31/17 at 03:44 Sodium Chloride (Iv Sodium Chloride 0.9% 1000ml Bag) 1,000 ml @ 125 mls/hr Q8H IV Last administered on 01/30/17 09:36; Start 01/30/17 at 03:45; Stop at 03:44 Tamsulosin HCl (Flomax) 0.4 mg DAILY PO Last administered on 01/30/17 09:30; Start 01/30/17 at 09:00 Fentanyl Citrate 50 mcg 50 mcg PRN Q2HR PRN IV PAIN Last administered on 09:36; Start 01/30/17 at 08:30 Ceftriaxone Sodium/Sodium Chloride (Rocephin/Iv Sodium Chloride 0.9% 50ml) 50 ml @ 100 mls/hr Q24H IV Last administered on 01/30/17t 09:31; Start 01/30/17 at 10:00 Vitals/I & O Vital Sign - Last 24 Hours 01/30/17 01/30/17 01/30/17 01/30/17 02:30 02:45 03:09 03:15 Temp 98.3 98.3 Pulse 73 81 Resp B/P 183/106 151/80 Pulse Ox 98 98 97 98 O2 Delivery Room Air Room Air Room Air Room Air 01/30/17 01/30/17 01/30/17 01/30/17 03:32 04:25 04:25 07:00 Temp 97.9 97.9 97.9 97.9 Pulse 90 98 71 Resp B/P 138/74 163/87 132/87 Pulse Ox 97 96 99 O2 Delivery Room Air Room Air Room Air Room Air 01/30/17 09:36 Resp 16 O2 Delivery Room Air Intake and Output 01/29/17 01/29/17 01/30/17 15:00 23:00 07:00 Intake Total 0 ml Output Total 150 ml Balance -150 ml CHICO TAYLOR MD Jan 30, 2017 10:37
[2017-01-30 11:00] VITALS: BP 144/89
[2017-01-30 15:01] VITALS: BP 141/79
[2017-01-30 19:20] VITALS: BP 121/76
[2017-01-30 23:12] VITALS: BP 139/79
[2017-01-31] MEDS: fentaNYL PF VIAL 100 MCG/2 ML VIAL IV PRN ×2 (02:12→09:57)
--- NOTE | 2017-01-31 02:15 | CONS ---
DATE OF CONSULTATION: 01/30/2017 LOCATION: The patient is in room 442. HISTORY OF PRESENT ILLNESS: The patient is a very pleasant 37-year-old white male with one-day history of left flank and abdominal pain. The patient was seen in the Emergency Room, found to have a 5 mm left distal ureteral stone and was admitted for further evaluation and possible treatment. PAST MEDICAL HISTORY: The patient had a prior stone about two years ago upon the left side; that he passed spontaneously. Past medical history significant for some arthritis. PAST SURGICAL HISTORY: He has had right wrist surgery in the past. MEDICATIONS: Normally just on some Ultram and other medicine. ALLERGIES: He has no known drug allergies. LABORATORY DATA: White count on admission 23.1, platelet count 300,000, creatinine 1.3. Urine shows 11-20 red cells, 5-10 white cells, and no bacteria. The patient is afebrile. DIAGNOSTIC DATA: CT abdomen and pelvis without contrast showed a 5 mm left distal ureteral stone with moderate hydroureteronephrosis. Also, tiny nonobstructing right renal calculus. PHYSICAL EXAMINATION: ABDOMEN: The patient is with no CVA tenderness. The patient with some mild left lower quadrant abdominal pain; currently narcotic several hours ago. GENITOURINARY: Testes are descended bilaterally. Phallus within normal limits. RECTAL: Good sphincter tone. Prostate smooth, nontender, without nodules, overall size 15 grams. ASSESSMENT: I talked with the patient concerning his 5 mm left distal ureteral stone. We discussed the options, alternatives, benefits, risks and possible complications of medical expulsive therapy versus surgical intervention with cystoscopy, left retrograde pyelogram and left ureteral stent placement. Right now, the patient wants to consider his options and then make a decision and then we will proceed accordingly. I certainly appreciate being allowed to participate in this patient's care. CHICO TAYLOR MD DR: CANELO/haily JOB#: [id number] / [id number]
[2017-01-31 03:12] VITALS: BP 149/90
[2017-01-31 05:27] LABS: BASO # 0.1 x10^3/uL (0.0-0.2); BASO % 1 % (0-3); EOS % 3 % (0-3); HEMATOCRIT 34.8 % (39.0-53.0); HEMOGLOBIN 11.9 g/dL (13.0-17.5); LYMPH # 4.1 x10^3/uL (1.0-4.8); LYMPH % 31 % (24-48); MEAN CORPUSCULAR HEMOGLOBIN 29 pg (25-35); MEAN CORPUSCULAR HGB CONC 34 g/dL (31-37); MEAN CORPUSCULAR VOLUME 86 fL (79-100); MONO % 7 % (0-9); NEUT % 59 % (31-73); PLATELET COUNT 251 x10^3/uL (140-400); RED BLOOD COUNT 4.06 x10^6/uL (4.30-5.70); RED CELL DISTRIBUTION WIDTH 14.2 % (11.5-14.5); WHITE BLOOD COUNT 13.3 x10^3/uL (4.0-11.0)
[2017-01-31 05:55] LABS: CALCIUM 8.3 mg/dL (8.5-10.1); CREATININE 0.9 mg/dL (0.7-1.3)
[2017-01-31 07:00] VITALS: BP 135/95
[2017-01-31] MEDS ORDERED: MORPHINE SULFATE 2 MG/ML DISP.SYRIN. IV PRN (07:00)
[2017-01-31] MEDS ORDERED: ONDANSETRON PF 4 MG/2 ML VIAL. IV PRN ×2 (07:00→10:45)
[2017-01-31] MEDS ORDERED: PROCHLORPERAZINE 10 MG/2 ML VIAL. IV PRN (07:00)
[2017-01-31] MEDS ORDERED: HYDROmorphone 2 MG/ML VIAL IV PRN (07:00)
[2017-01-31] MEDS ORDERED: IV RINGERS,LACTATED 1000ML 1,000 ML IV SCH (07:00)
[2017-01-31] MEDS ORDERED: LIDOCAINE 1% 1 ML SYRINGE. ID PRN (07:00)
[2017-01-31] MEDS ORDERED: fentaNYL PF VIAL 100 MCG/2 ML VIAL IV PRN ×2 (07:00)
--- NOTE | 2017-01-31 08:09 | RAD ---
Indication left ureteral stone. Assess positioning. A single KUB was obtained. Note is made of a CT examination of the abdomen and pelvis one day earlier demonstrating a calculus in the distal left ureter. Compatible with the CT examination yesterday is a calculus in the distal left ureter. The abdominal gas pattern is normal. IMPRESSION: Calculus distal left ureter similar in location to the CT examination one day earlier
[2017-01-31] MEDS: TAMSULOSIN 0.4 MG CAP.ER.24H. PO SCH ×2 (08:20→09:00)
--- NOTE | 2017-01-31 08:37 | PDOC ---
PROGRESS NOTES Subjective Subjective Pt. feeling better today Objective Objective Vital Signs Date Time Temp Pulse Resp B/P Pulse Ox O2 Delivery O2 Flow Rate FiO2 01/31/17 07:20 Room Air 01/31/17 07:00 97.5 66 20 135/95 98 97.5 Intake and Output 01/31/17 07:00 Intake Total 0 ml Output Total 252 ml Balance -252 ml Intake Oral 0 ml Output Urine Total 252 ml Physical Exam Physical Exam Abd soft, minimal discomfort Assessment Assessment Afeb. WBC-13 now KUB-stone unchanged in location I discussed with the pt. the options, alternatives, benefits, risks and possible complications of medical expulsive therapy vs. surgical intervention. Pt. would like to try and pass his stone with medical expulsive therapy. Will therefore have pt. push fluids, flomax, pain meds and antibiotic. Follow up with urology in 2 weeks for re-evaluation and KUB same day Problems Medical Problems: (1) Hydronephrosis Status: Acute (2) Ureteral calculus Status: Acute Comment Review of Relevant I have reviewed the following items haily (where applicable) has been applied. Labs Laboratory Tests Test 01/30/17 02:30 01/30/17 02:45 01/31/17 05:10 Urine Collection Type Unknown Urine Color Yellow Urine Clarity Clear Urine pH 6.0 Urine Specific [place] 1.025 Urine Protein 30mg/dL (NEG-TRACE) Urine Glucose (UA) Negativemg/dL (NEG) Urine Ketones (Stick) Negativemg/dL (NEG) Urine Blood Moderate (NEG) Urine Nitrite Negative (NEG) Urine Bilirubin Negative (NEG) Urine Urobilinogen Dipstick 0.2mg/dL (0.2 mg/dL) Urine Leukocyte Esterase Negative (NEG) Urine RBC 11-20/HPF (0-2) Urine WBC 5-10/HPF (0-4) Urine Squamous Epithelial Cells Few/LPF Urine Bacteria 0/HPF (0-FEW) Urine Mucus Marked/LPF White Blood Count 23.1x10^3/uL (4.0-11.0) 13.3x10^3/uL (4.0-11.0) Red Blood Count 4.73x10^6/uL (4.30-5.70) 4.06x10^6/uL (4.30-5.70) Hemoglobin 13.6g/dL (13.0-17.5) 11.9g/dL (13.0-17.5) Hematocrit 40.9% (39.0-53.0) 34.8% (39.0-53.0) Mean Corpuscular Volume 87fL (79-100) 86fL (79-100) Mean Corpuscular Hemoglobin 29pg (25-35) 29pg (25-35) Mean Corpuscular Hemoglobin Concent 33g/dL (31-37) 34g/dL (31-37) Red Cell Distribution Width 14.0% (11.5-14.5) 14.2% (11.5-14.5) Platelet Count 300x10^3/uL (140-400) 251x10^3/uL (140-400) Neutrophils (%) (Auto) 84% (31-73) 59% (31-73) Lymphocytes (%) (Auto) 10% (24-48) 31% (24-48) Monocytes (%) (Auto) 6% (0-9) 7% (0-9) Eosinophils (%) (Auto) 0% (0-3) 3% (0-3) Basophils (%) (Auto) 0% (0-3) 1% (0-3) Neutrophils # (Auto) 19.3x10^3uL (1.8-7.7) 7.8x10^3uL (1.8-7.7) Lymphocytes # (Auto) 2.4x10^3/uL (1.0-4.8) 4.1x10^3/uL (1.0-4.8) Monocytes # (Auto) 1.3x10^3/uL (0.0-1.1) 1.0x10^3/uL (0.0-1.1) Eosinophils # (Auto) 0.1x10^3/uL (0.0-0.7) 0.3x10^3/uL (0.0-0.7) Basophils # (Auto) 0.0x10^3/uL (0.0-0.2) 0.1x10^3/uL (0.0-0.2) Segmented Neutrophils % 85% (35-66) Band Neutrophils % 2% (0-9) Lymphocytes % 7% (24-48) Monocytes % 6% (0-10) Platelet Estimate Adequate (ADEQUATE) Sodium Level 144mmol/L (136-145) 144mmol/L (136-145) Potassium Level 3.7mmol/L (3.5-5.1) 4.0mmol/L (3.5-5.1) Chloride Level 106mmol/L (98-107) 109mmol/L (98-107) Carbon Dioxide Level 27mmol/L (21-32) 27mmol/L (21-32) Anion Gap 11 (6-14) 8 (6-14) Blood Urea Nitrogen 15mg/dL (8-26) 16mg/dL (8-26) Creatinine 1.3mg/dL (0.7-1.3) 0.9mg/dL (0.7-1.3) Estimated GFR (Cockcroft-Gault) 62.8 96.0 Glucose Level 121mg/dL (70-99) 92mg/dL (70-99) Calcium Level 9.0mg/dL (8.5-10.1) 8.3mg/dL (8.5-10.1) Laboratory Tests Test 01/31/17 05:10 White Blood Count 13.3x10^3/uL (4.0-11.0) Red Blood Count 4.06x10^6/uL (4.30-5.70) Hemoglobin 11.9g/dL (13.0-17.5) Hematocrit 34.8% (39.0-53.0) Mean Corpuscular Volume 86fL (79-100) Mean Corpuscular Hemoglobin 29pg (25-35) Mean Corpuscular Hemoglobin Concent 34g/dL (31-37) Red Cell Distribution Width 14.2% (11.5-14.5) Platelet Count 251x10^3/uL (140-400) Neutrophils (%) (Auto) 59% (31-73) Lymphocytes (%) (Auto) 31% (24-48) Monocytes (%) (Auto) 7% (0-9) Eosinophils (%) (Auto) 3% (0-3) Basophils (%) (Auto) 1% (0-3) Neutrophils # (Auto) 7.8x10^3uL (1.8-7.7) Lymphocytes # (Auto) 4.1x10^3/uL (1.0-4.8) Monocytes # (Auto) 1.0x10^3/uL (0.0-1.1) Eosinophils # (Auto) 0.3x10^3/uL (0.0-0.7) Basophils # (Auto) 0.1x10^3/uL (0.0-0.2) Sodium Level 144mmol/L (136-145) Potassium Level 4.0mmol/L (3.5-5.1) Chloride Level 109mmol/L (98-107) Carbon Dioxide Level 27mmol/L (21-32) Anion Gap 8 (6-14) Blood Urea Nitrogen 16mg/dL (8-26) Creatinine 0.9mg/dL (0.7-1.3) Estimated GFR (Cockcroft-Gault) 96.0 Glucose Level 92mg/dL (70-99) Calcium Level 8.3mg/dL (8.5-10.1) Medications Current Medications Ketorolac Tromethamine (Toradol) 30 mg 1X ONCE IV Last administered on 02:45; Start 01/30/17 at 02:45; Stop 01/30/17 at 03:06; Status DC Fentanyl Citrate 50 mcg 50 mcg 1X ONCE IV Last administered on 01/30/17 02:45 ; Start 01/30/17 at 02:45; Stop 01/30/17 at 03:06; Status DC Sodium Chloride (Iv Sodium Chloride 0.9% 1000ml Bag) 1,000 ml @ 1,000 mls/hr 1X ONCE IV Last administered on 01/30/17 02:53; Start 01/30/17 at 02:45; Stop 01/30/17 at 03:44; Status DC Ondansetron HCl (Zofran) 4 mg 1X ONCE IV Last administered on 01/30/17 02:58 ; Start 01/30/17 at 03:00; Stop 01/30/17 at 03:06; Status DC Fentanyl Citrate (Fentanyl 2ml Vial) 50 mcg 1X ONCE IV Last administered on 03:15; Start 01/30/17 at 03:15; Stop 01/30/17 at 03:25; Status DC Ondansetron HCl (Zofran) 4 mg PRN Q8HRS PRN IV NAUSEA/VOMITING; Start 01/30/17 at 03:45; Stop 01/31/17 at 03:44; Status DC Morphine Sulfate 4 mg 4 mg PRN Q2HR PRN IV PAIN; Start 01/30/17 at 03:45; Stop 01/31/17 at 03:44; Status DC Sodium Chloride (Iv Sodium Chloride 0.9% 1000ml Bag) 1,000 ml @ 125 mls/hr Q8H IV Last administered on 01/30/17 09:36; Start 01/30/17 at 03:45; Stop at 03:44; Status DC Tamsulosin HCl (Flomax) 0.4 mg DAILY PO Last administered on 01/30/17 09:30; Start 01/30/17 at 09:00 Fentanyl Citrate 50 mcg 50 mcg PRN Q2HR PRN IV PAIN Last administered on 02:12; Start 01/30/17 at 08:30 Ceftriaxone Sodium/Sodium Chloride (Rocephin/Iv Sodium Chloride 0.9% 50ml) 50 ml @ 100 mls/hr Q24H IV Last administered on 01/30/17 09:31; Start 01/30/17 at 10:00 Ondansetron HCl (Zofran) 4 mg PRN Q6HRS PRN IV NAUSEA/VOMITING; Start 01/31/17 at 07:00; Stop 02/01/17 at 06:59 Fentanyl Citrate (Fentanyl 2ml Vial) 25 mcg PRN Q5MIN PRN IV MILD PAIN; Start 01/31/17 at 07:00; Stop 02/01/17 at 06:59 Fentanyl Citrate (Fentanyl 2ml Vial) 50 mcg PRN Q5MIN PRN IV MODERATE PAIN; Start 01/31/17 at 07:00; Stop 02/01/17 at 06:59 Morphine Sulfate 1 mg 1 mg PRN Q10MIN PRN IV SEVERE PAIN; Start 01/31/17 at 07: 00; Stop 02/01/17 at 06:59 Lactated Ringer's (Iv Lactated Ringers) 1,000 ml @ 0 mls/hr Q0M IV ; Start at 07:00; Stop 01/31/17 at 18:59 Lidocaine HCl 2 ml PRN 1X PRN ID PRIOR TO IV START; Start 01/31/17 at 07:00; Stop 02/01/17 at 06:59 Hydromorphone HCl (Dilaudid) 0.5 mg PRN Q10MIN PRN IV SEV PAIN, Second choice; Start 01/31/17 at 07:00; Stop 02/01/17 at 06:59 Prochlorperazine Edisylate (Compazine) 5 mg PACU PRN PRN IV NAUSEA, MRX1; Start 01/31/17 at 07:00; Stop 02/01/17 at 06:59 Vitals/I & O Vital Sign - Last 24 Hours 01/30/17 01/30/17 01/30/17 01/30/17 09:36 11:00 15:01 19:20 Temp 98.2 97.9 98.5 98.2 97.9 98.5 Pulse 70 88 67 Resp 16 18 18 16 B/P 144/89 141/79 121/76 Pulse Ox 98 98 99 O2 Delivery Room Air Room Air Room Air Room Air 01/30/17 01/30/17 01/30/17 01/31/17 20:00 22:32 23:12 00:10 Temp 98.2 98.2 Pulse 79 Resp 20 16 18 B/P 139/79 Pulse Ox 99 99 O2 Delivery Room Air Room Air Room Air 01/31/17 01/31/17 01/31/17 01/31/17 02:12 02:53 03:12 07:00 Temp 98.1 97.5 98.1 97.5 Pulse 64 66 Resp 18 20 B/P 149/90 135/95 Pulse Ox 100 98 O2 Delivery Room Air Room Air Room Air Room Air 01/31/17 07:20 O2 Delivery Room Air Intake and Output 01/30/17 01/30/17 01/31/17 15:00 23:00 07:00 Intake Total 0 ml 0 ml Output Total 250 ml 2 ml Balance -250 ml -2 ml CHICO TAYLOR MD Jan 31, 2017 08:37
[2017-01-31] MEDS ORDERED: HYDROCODONE/APAP 5/325MG TABLET. PO PRN (10:45)
[2017-01-31 11:00] VITALS: BP 147/97
[2017-01-31] MEDS ORDERED: HYDR-2666 PO (11:53)
[2017-01-31] MEDS ORDERED: TAMS0.4C97 PO (11:53)
--- NOTE | 2017-01-31 14:20 | PDOC3 ---
Discharge Summary [facility] Date of Admission: Jan 30, 2017 Discharge Date: Jan 31, 2017 Admitting Diagnosis Renal colic Urolithiastis, left distal ureteral , 5mm SIRS Problems: Final Diagnosis CONSULTS dr. Howell Brief Hospital Course Mr. Jovel, 37-year-old male who's having extensive left lower quadrant pain that radiates. He has prior stone 2 years ago, passed spontaneuously. No home meds and had been feeling well until late last night Acute pain was 10/10, now 4/10 He denies any dysuria or hematuria, fever or chills. pt has not pain now. CT showed a 5mm left distal ureteral stone with moderate hydronephrosis, Cr normal, ucx neg. uroconsulted, no intervention. dc home, hydration, lortab , flomax. fu with uro in 1-2 weeks dc time 35min. General: Alert, Cooperative, mild distress HEENT: Atraumatic, PERRLA, EOMI, Mucous membr. moist/pink Heart: no gallops, no murmurs Abdomen: Normal bowel sounds, Soft Rectal Exam: not examined Extremities: No clubbing, No cyanosis, No edema Skin: No significant lesion Neuro: Normal speech, Normal tone Patient History: Patient reports no known family medical history. Problems: Disposition home CONDITION AT DISCHARGE: Improved Diet regular Scheduled Tamsulosin Hcl (Flomax) 0.4 MG PO DAILY Scheduled PRN Hydrocodone Bit/Acetaminophen (Hydrocodone-Apap 5-325 ) 1 TAB PO PRN Q4HRS PRN PRN PAIN Follow Up uro in 1 week BRIGETTE BURGOS MD Jan 31, 2017 14:20
== END 2017-01-31 13:10 | disposition home or self-care (01) | DRG 694 ==
LOC: ER 02:25 → 4 NORTH 03:28
PROVIDERS: ADMIT Internal Medicine; ATTEND Internal Medicine
DX: N13.2 Hydronephrosis with renal and ureteral calculous obstruction (principal); R65.10 Systemic inflammatory response syndrome (SIRS) of non-infectious origin without acute organ dysfunction; M19.90 Unspecified osteoarthritis, unspecified site; Z79.899 Other long term (current) drug therapy; Z87.442 Personal history of urinary calculi; Z79.1 Long term (current) use of non-steroidal anti-inflammatories (NSAID)
CPT/HCPCS: 36415; 74000; 74176; 80048; 81001; 85007; 85027; 87086; 96374; 96375; J0696; J1885; J2405; J3010; J7030; 99285-25

== ENCOUNTER 2017-02-07 21:35 | Emergency (ER) | payer OTHER ==
[~2017-02-07] VITALS: Ht 172.7 cm; Wt 95.3 kg
[~2017-02-07 21:35] MED LIST: HYDR-2666 PO; TAMS0.4C97 PO
[2017-02-07] MEDS ORDERED: MORPHINE SULFATE 4 MG/ML DISP.SYRIN. IV/SQ PRN (22:00)
--- NOTE | 2017-02-07 22:06 | PHYS DOC ---
Past Medical History Past Medical History: Kidney Stone Past Surgical History: Other Additional Past Surgical Histo: RIGHT WRIST Alcohol Use: None Drug Use: None Adult General Chief Complaint Chief Complaint: ABDOMINAL PAIN HPI HPI Patient is a 37 year old male who presents with complaint of left-sided flank pain. Patient states that he was diagnosed with a left ureteral stone and hospitalized on January 30, 2017 due to evidence of hydro-nephrosis. The patient was evaluated by Dr. Howell and was designated for nonoperative treatment. Patient was discharged with Flomax and antibiotics. Patient states that for the past week he has had minimal pain, however starting tonight he started getting worsening pain in his left flank. Patient rates pain currently as 6 out of 10. Patient states that the pain is colicky and similar to his previous episode. Patient denies any fever but has had nausea. Patient came back to the emergency department as he is concerned that his stone may not be passing. Review of Systems Review of Systems Constitutional: Denies fever or chills [] Eyes: Denies change in visual acuity, redness, or eye pain [] HENT: Denies nasal congestion or sore throat [] Respiratory: Denies cough or shortness of breath [] Cardiovascular: Denies chest pain or edema [] GI: Abdominal pain nausea, denies vomiting, bloody stools or diarrhea [] : Hematuria [] Musculoskeletal: Left flank pain [] Integument: Denies rash or skin lesions [] Neurologic: Denies headache, focal weakness or sensory changes [] Current Medications Current Medications Current Medications Medications (Trade) Dose Ordered Sig/Lorene Start Time Stop Time Status Last Admin Dose Admin Famotidine (Pepcid) 20 mg 1X ONCE 02/07/17 22:30 02/07/17 22:31 DC 02/07/17 22:38 20 MG Ketorolac Tromethamine (Toradol) 30 mg 1X ONCE 02/07/17 22:30 02/07/17 22:31 DC 02/07/17 22:30 30 MG Morphine Sulfate 4 mg 4 mg PRN Q15MIN PRN 02/07/17 22:00 02/08/17 21:59 02/07/17 22:40 4 MG Ondansetron HCl (Zofran) 4 mg 1X ONCE 02/07/17 22:30 02/07/17 22:31 DC 02/07/17 22:34 4 MG Sodium Chloride (Iv Sodium Chloride 0.9% 1000ml Bag) 1,000 ml @ 1,000 mls/hr Q1H 02/07/17 22:30 02/07/17 23:29 02/07/17 22:34 1,000 MLS/HR Allergies Allergies Allergies Coded Allergies Type Severity Reaction Last Updated Verified No Known Drug Allergies 01/30/17 No Physical Exam Physical Exam Constitutional: Alert, afebrile, appears in mild to moderate discomfort. [] HENT: Normocephalic, atraumatic, bilateral external ears normal, oropharynx moist, no oral exudates, nose normal. [] Eyes: PERRLA, EOMI, conjunctiva normal, no discharge. [] Neck: Normal range of motion, no tenderness, supple, no stridor. [] Cardiovascular:Heart rate regular rhythm, no murmur [] Lungs & Thorax: Bilateral breath sounds clear to auscultation [] Abdomen: Bowel sounds normal, soft, no tenderness, no masses, no pulsatile masses. [] Skin: Warm, dry, no erythema, no rash. [] Back: No tenderness, left CVA tenderness. [] Extremities: No tenderness, no cyanosis, no clubbing, ROM intact, no edema. [] Neurologic: Alert and oriented X 3, normal motor function, normal sensory function, no focal deficits noted. [] Current Patient Data Vital Signs Vital Signs Date Time Temp Pulse Resp B/P Pulse Ox O2 Delivery O2 Flow Rate FiO2 02/07/17 22:50 98.1 85 18 143/84 97 Room Air 98.1 Lab Values Laboratory Tests Test 02/07/17 22:20 White Blood Count 17.7x10^3/uL (4.0-11.0) H Red Blood Count 4.75x10^6/uL (4.30-5.70) Hemoglobin 13.8g/dL (13.0-17.5) Hematocrit 41.4% (39.0-53.0) Mean Corpuscular Volume 87fL (79-100) Mean Corpuscular Hemoglobin 29pg (25-35) Mean Corpuscular Hemoglobin Concent 33g/dL (31-37) Red Cell Distribution Width 14.1% (11.5-14.5) Platelet Count 332x10^3/uL (140-400) Neutrophils (%) (Auto) 78% (31-73) H Lymphocytes (%) (Auto) 15% (24-48) L Monocytes (%) (Auto) 6% (0-9) Eosinophils (%) (Auto) 1% (0-3) Basophils (%) (Auto) 1% (0-3) Neutrophils # (Auto) 13.8x10^3uL (1.8-7.7) H Lymphocytes # (Auto) 2.6x10^3/uL (1.0-4.8) Monocytes # (Auto) 1.1x10^3/uL (0.0-1.1) Eosinophils # (Auto) 0.2x10^3/uL (0.0-0.7) Basophils # (Auto) 0.1x10^3/uL (0.0-0.2) Urine Collection Type Unknown Urine Color Yellow Urine Clarity Turbid Urine pH 8.0 Urine Specific [place] 1.015 Urine Protein 30mg/dL (NEG-TRACE) Urine Glucose (UA) Negativemg/dL (NEG) Urine Ketones (Stick) Negativemg/dL (NEG) Urine Blood Moderate (NEG) Urine Nitrite Negative (NEG) Urine Bilirubin Negative (NEG) Urine Urobilinogen Dipstick 0.2mg/dL (0.2 mg/dL) Urine Leukocyte Esterase Negative (NEG) Urine RBC 6-10/HPF (0-2) Urine WBC Occ/HPF (0-4) Urine Squamous Epithelial Cells Few/LPF Urine Amorphous Sediment Present/HPF Urine Bacteria 0/HPF (0-FEW) Urine Mucus Slight/LPF Sodium Level 142mmol/L (136-145) Potassium Level 3.9mmol/L (3.5-5.1) Chloride Level 103mmol/L (98-107) Carbon Dioxide Level 31mmol/L (21-32) Anion Gap 8 (6-14) Blood Urea Nitrogen 16mg/dL (8-26) Creatinine 1.3mg/dL (0.7-1.3) Estimated GFR (Cockcroft-Gault) 62.8 BUN/Creatinine Ratio 12 (6-20) Glucose Level 95mg/dL (70-99) Calcium Level 9.1mg/dL (8.5-10.1) Total Bilirubin 0.3mg/dL (0.2-1.0) Aspartate Amino Transferase (AST) 30U/L (15-37) Alanine Aminotransferase (ALT) 66U/L (16-63) H Alkaline Phosphatase 72U/L (46-116) Total Protein 8.0g/dL (6.4-8.2) Albumin 4.1g/dL (3.4-5.0) Albumin/Globulin Ratio 1.1 (1.0-1.7) Lipase 135U/L (73-393) Laboratory Tests 02/07/17 22:20 Laboratory Tests 02/07/17 22:20 EKG EKG Not performed [] Radiology/Procedures Radiology/Procedures One view KUB interpreted by me: Left distal ureteral stone and same position compared to previous [] Course & Med Decision Making Course & Med Decision Making Pertinent Labs and Imaging studies reviewed. (See chart for details) Patient was treated with IV fluids, morphine, Toradol, and Zofran. On reevaluation, patient states his pain has improved. I consulted Dr. Howell and spoke with him regarding the case. He stated that he would be happy to follow- up with the patient next week in his office for treatment as the patient was supposed follow-up this week and missed his appointment. He stated that the patient was then severe discomfort that he would be willing to consult on the patient in hospital with plans for stent placement. After speaking with the patient, the patient states that he would like to go home at this time. Patient is requesting pain medication to help with his symptoms. The patient will be prescribed Percocet to help with pain. Advised to follow-up in [address] Howell in his office. Advised return emergency department for any worsening symptoms. Patient voiced understanding and in agreement with treatment plan. Dragon Disclaimer Dragon Disclaimer This electronic medical record was generated, in whole or in part, using a voice recognition dictation system. Departure Departure Impression: Primary Impression: Ureteral colic Additional Impression: Ureteral calculus Disposition: 01 HOME, SELF-CARE Condition: IMPROVED Referrals: MARCIAL ASKEW (PCP) CHICO HOWELL MD Patient Instructions: Ureteral Colic Additional Instructions: Follow-up with Dr. Howell in 3-5 days. Return to the emergency department for any worsening symptoms. Scripts Oxycodone/Apap 7.5-325 (Percocet 7.5-325 Mg Tablet)1 Each Tablet1 Tab PO Q6HRS PRN PAIN #20 TAB Ref 0 Prov:LUCIE MELENDEZ MD 02/07/17 Problem Qualifiers LUCIE MELENDEZ MD Feb 07, 2017 22:05
[2017-02-07 22:28] LABS: BASO # 0.1 x10^3/uL (0.0-0.2); BASO % 1 % (0-3); EOS % 1 % (0-3); HEMATOCRIT 41.4 % (39.0-53.0); HEMOGLOBIN 13.8 g/dL (13.0-17.5); LYMPH # 2.6 x10^3/uL (1.0-4.8); LYMPH % 15 % (24-48); MEAN CORPUSCULAR HEMOGLOBIN 29 pg (25-35); MEAN CORPUSCULAR HGB CONC 33 g/dL (31-37); MEAN CORPUSCULAR VOLUME 87 fL (79-100); MONO % 6 % (0-9); NEUT % 78 % (31-73); PLATELET COUNT 332 x10^3/uL (140-400); RED BLOOD COUNT 4.75 x10^6/uL (4.30-5.70); RED CELL DISTRIBUTION WIDTH 14.1 % (11.5-14.5); WHITE BLOOD COUNT 17.7 x10^3/uL (4.0-11.0)
[2017-02-07 22:29] LABS: BILIRUBIN,URINE NEGATIVE (NEG); GLUCOSE,URINE NEGATIVE (NEG); NITRITE,URINE NEGATIVE (NEG); PROTEIN,URINE 30 mg/dL (NEG-TRACE); UROBILINOGEN,URINE 0.2 mg/dL (0.2 mg/dL)
[2017-02-07] MEDS ORDERED: FAMOTIDINE 20 MG/2 ML VIAL IVP ONE (22:30)
[2017-02-07] MEDS ORDERED: KETOROLAC TROMETHAMINE 30 MG/ML INJ. IV ONE (22:30)
[2017-02-07] MEDS ORDERED: ONDANSETRON PF 4 MG/2 ML VIAL. IV ONE (22:30)
[2017-02-07] MEDS ORDERED: IV NORMAL SALINE 1000ML BAG 1,000 ML IV SCH (22:30)
[2017-02-07 22:37] LABS: BACTERIA,URINE 0 /HPF (0-FEW); SQUAMOUS EPITHELIAL CELL,UR FEW /LPF; WBC,URINE OCC /HPF (0-4)
[2017-02-07 22:43] LABS: CALCIUM 9.1 mg/dL (8.5-10.1); CREATININE 1.3 mg/dL (0.7-1.3); GFR 62.8; POTASSIUM 3.9 mmol/L (3.5-5.1)
[2017-02-07 22:50] VITALS: BP 143/84
[2017-02-07 22:51] LABS: ALBUMIN 4.1 g/dL (3.4-5.0); ALBUMIN/GLOBULIN RATIO 1.1 (1.0-1.7); TOTAL BILIRUBIN 0.3 mg/dL (0.2-1.0)
[2017-02-07] MEDS ORDERED: OXYC-244 PO (23:15)
--- NOTE | 2017-02-08 08:51 | RAD ---
KUB Clinical indications: Left-sided abdominal pain for a week. History of distal left ureteral stone. Comparison: January 31, 2017. Findings: Again seen is a distal left ureteral stone measuring 5 mm in size which has progressed about 1.5 cm within the distal left ureter and now is located near the UVJ. No obstructive bowel pattern is seen. IMPRESSION: Mild further distal migration of distal left ureteral stone since the previous study.
== END 2017-02-07 23:58 | disposition home or self-care (01) ==
LOC: ER 21:35
DX: N20.1 Calculus of ureter (principal)
CPT/HCPCS: 36415; 74000; 80053; 81001; 83690; 85027; 96361; 96374; 96375; 99285; J1885; J2270; J2405; J7030; S0028

== ENCOUNTER 2017-02-10 15:29 | Inpatient (IN) | payer OTHER ==
[~2017-02-10] VITALS: Ht 175.3 cm; Wt 104.3 kg
[~2017-02-10 15:29] MED LIST changes: +OXYC-244 PO
[2017-02-10] MEDS ORDERED: fentaNYL PF VIAL 100 MCG/2 ML VIAL IV PRN (17:15)
[2017-02-10] MEDS ORDERED: KETOROLAC TROMETHAMINE 30 MG/ML INJ. IV ONE (17:15)
--- NOTE | 2017-02-10 17:30 | PHYS DOC ---
Past Medical History Past Medical History: Kidney Stone Past Surgical History: Other Additional Past Surgical Histo: RIGHT WRIST Alcohol Use: None Drug Use: None Adult General Chief Complaint Chief Complaint: FLANK PAIN HPI HPI Patient is a 37 year old male who presents with with left flank pain persistent for sometime now from known 5 mm stone. He saw Dr. Howell, urology, in the clinic today and was sent here for admission of symptom control with likely procedure tomorrow. He notes constant left flank pain that fluctuates in intensity since recent visit to this emergency department. He denies dysuria, fever or chills, nausea or vomiting, abdominal pain, rash. Review of Systems Review of Systems Constitutional: Denies fever or chills [] Eyes: Denies change in visual acuity, redness, or eye pain [] HENT: Denies nasal congestion or sore throat [] Respiratory: Denies cough or shortness of breath [] Cardiovascular: No additional information not addressed in HPI [] GI: Denies abdominal pain, nausea, vomiting, bloody stools or diarrhea [] : Denies dysuria or hematuria [] Musculoskeletal: Denies joint pain [] Integument: Denies rash or skin lesions [] Neurologic: Denies headache, focal weakness or sensory changes [] Endocrine: Denies polyuria or polydipsia [] Current Medications Current Medications Current Medications Medications (Trade) Dose Ordered Sig/Lorene Start Time Stop Time Status Last Admin Dose Admin Fentanyl Citrate (Fentanyl 2ml Vial) 50 mcg PRN Q15MIN PRN 02/10/17 17:15 02/11/17 17:14 Ketorolac Tromethamine (Toradol) 15 mg 1X ONCE 02/10/17 17:15 02/10/17 17:16 DC 02/10/17 17:45 15 MG Allergies Allergies Allergies Coded Allergies Type Severity Reaction Last Updated Verified No Known Drug Allergies 01/30/17 No Physical Exam Physical Exam Constitutional: Well developed, well nourished, no acute distress, non-toxic appearance. [] HENT: Normocephalic, atraumatic, bilateral external ears normal, oropharynx moist, nose normal. [] Eyes: PERRLA, EOMI. [] Neck: Normal range of motion, supple. [] Cardiovascular:Heart rate regular rhythm [] Lungs & Thorax: Bilateral breath sounds clear to auscultation [] Abdomen: Bowel sounds normal, soft, no tenderness. [] Skin: Warm, dry, no erythema, no rash. [] Back: No tenderness, no right CVA tenderness, mild CVA tenderness. [] Extremities: No tenderness, ROM intact, no edema. [] Neurologic: Alert and oriented X 3, normal motor function, normal sensory function, no focal deficits noted. [] Psychologic: Affect normal, judgement normal, mood normal. [] Current Patient Data Vital Signs Vital Signs Date Time Temp Pulse Resp B/P Pulse Ox O2 Delivery O2 Flow Rate FiO2 02/10/17 17:00 98.4 80 20 141/79 97 Room Air 98.4 Lab Values Laboratory Tests Test 02/10/17 17:10 Urine Collection Type Unknown Urine Color Yellow Urine Clarity Clear Urine pH 7.5 Urine Specific [place] 1.020 Urine Protein Negativemg/dL (NEG-TRACE) Urine Glucose (UA) Negativemg/dL (NEG) Urine Ketones (Stick) Negativemg/dL (NEG) Urine Blood Negative (NEG) Urine Nitrite Negative (NEG) Urine Bilirubin Negative (NEG) Urine Urobilinogen Dipstick 0.2mg/dL (0.2 mg/dL) Urine Leukocyte Esterase Small (NEG) Urine RBC 0/HPF (0-2) Urine WBC 1-4/HPF (0-4) Urine Squamous Epithelial Cells Occ/LPF Urine Bacteria 0/HPF (0-FEW) Urine Mucus Mod/LPF Radiology/Procedures Radiology/Procedures Renal ultrasound IMPRESSION No hydronephrosis is identified of either kidney. There are some echogenic foci of the kidneys bilaterally although only small calculi seen of the right kidney on previous CT exam. Electronically signed by: Denzel Cam MD (February 10, 2017 18:12:42) Course & Med Decision Making Course & Med Decision Making Pertinent Labs and Imaging studies reviewed. (See chart for details) Workup is unremarkable. He will be admitted due to prior conversation with Dr. Howell, urology, who plans for procedure tomorrow. Discussed case with Dr. Jiménez, who will admit. Dragon Disclaimer Dragon Disclaimer This electronic medical record was generated, in whole or in part, using a voice recognition dictation system. Departure Departure Impression: Primary Impression: Ureteral colic Disposition: ADMITTED INPATIENT Condition: STABLE Referrals: MARCIAL ASKEW (PCP) Salvador SAUNDERS MD February 10, 2017 17:30
[2017-02-10] MEDS ORDERED: ONDANSETRON PF 4 MG/2 ML VIAL. IV PRN (17:45)
[2017-02-10] MEDS ORDERED: ACETAMINOPHEN 325 MG TABLET. PO PRN (17:45)
[2017-02-10 17:47] LABS: BASO % 1 % (0-3); EOS % 2 % (0-3); HEMATOCRIT 40.6 % (39.0-53.0); HEMOGLOBIN 13.6 g/dL (13.0-17.5); LYMPH # 2.9 x10^3/uL (1.0-4.8); LYMPH % 29 % (24-48); MEAN CORPUSCULAR HEMOGLOBIN 29 pg (25-35); MEAN CORPUSCULAR HGB CONC 34 g/dL (31-37); MEAN CORPUSCULAR VOLUME 87 fL (79-100); MONO % 6 % (0-9); NEUT % 63 % (31-73); PLATELET COUNT 320 x10^3/uL (140-400); RED BLOOD COUNT 4.69 x10^6/uL (4.30-5.70); RED CELL DISTRIBUTION WIDTH 13.8 % (11.5-14.5); WHITE BLOOD COUNT 10.3 x10^3/uL (4.0-11.0)
[2017-02-10 17:48] LABS: BILIRUBIN,URINE NEGATIVE (NEG); GLUCOSE,URINE NEGATIVE (NEG); NITRITE,URINE NEGATIVE (NEG); PH,URINE 7.5; PROTEIN,URINE NEGATIVE (NEG-TRACE); UROBILINOGEN,URINE 0.2 mg/dL (0.2 mg/dL)
[2017-02-10 18:03] LABS: CALCIUM 9.1 mg/dL (8.5-10.1); CREATININE 0.9 mg/dL (0.7-1.3); POTASSIUM 4.2 mmol/L (3.5-5.1)
[2017-02-10 18:03] LABS: BACTERIA,URINE 0 /HPF (0-FEW); RBC,URINE 0 /HPF (0-2); SQUAMOUS EPITHELIAL CELL,UR OCC /LPF
--- NOTE | 2017-02-10 18:14 | RAD ---
PROCEDURE Renal ultrasound HISTORY History of left renal stone, left flank pain COMPARISON January 30, 2017 CT exam FINDINGS Multiple sonographic images of the kidneys are submitted. Right kidney measured 11.1 x 6 x 6.6 centimeters. Left kidney measured 9.6 x 4.9 x 6 centimeters. There is no hydronephrosis of either kidney. There are echogenic foci of the kidneys bilaterally, largest on the right up to 0.7 centimeters. Urinary bladder is not well visualized as not distended during exam. IMPRESSION No hydronephrosis is identified of either kidney. There are some echogenic foci of the kidneys bilaterally although only small calculi seen of the right kidney on previous CT exam. Electronically signed by: Denzel Cam MD (February 10, 2017 18:12:42)
[2017-02-10 19:00] VITALS: BP 135/72
[2017-02-10] MEDS: IV NORMAL SALINE 1000ML BAG 1,000 ML IV SCH (21:58)
[2017-02-10] MEDS: fentaNYL PF VIAL 100 MCG/2 ML VIAL IV PRN (22:16)
--- NOTE | 2017-02-10 22:34 | PDOC ---
PROGRESS NOTES Subjective Subjective left renal colic Objective Objective Vital Signs Date Time Temp Pulse Resp B/P Pulse Ox O2 Delivery O2 Flow Rate FiO2 02/10/17 22:16 98 Room Air 02/10/17 19:00 98.6 84 20 135/72 98.6 Physical Exam Physical Exam Left flank pain Plan Plan of Care Pt. with continued pain from left duistal stone. I discussed with the pt. the options, alternatives, benefits, risks, and possible complications of continued medical expulsive therapy vs. cystoscopy with left retrograde pyelogram and possible left ureteroscopy and possible laser lithotripsy and possible ureteral stent placement. Pt. understands and wishes to proceed with operation. Will proceed accordingly. Problems Medical Problems: (1) Ureteral colic Status: Acute Comment Review of Relevant I have reviewed the following items haily (where applicable) has been applied. Labs Laboratory Tests Test 02/10/17 17:10 02/10/17 17:40 Urine Collection Type Unknown Urine Color Yellow Urine Clarity Clear Urine pH 7.5 Urine Specific Hodge 1.020 Urine Protein Negativemg/dL (NEG-TRACE) Urine Glucose (UA) Negativemg/dL (NEG) Urine Ketones (Stick) Negativemg/dL (NEG) Urine Blood Negative (NEG) Urine Nitrite Negative (NEG) Urine Bilirubin Negative (NEG) Urine Urobilinogen Dipstick 0.2mg/dL (0.2 mg/dL) Urine Leukocyte Esterase Small (NEG) Urine RBC 0/HPF (0-2) Urine WBC 1-4/HPF (0-4) Urine Squamous Epithelial Cells Occ/LPF Urine Bacteria 0/HPF (0-FEW) Urine Mucus Mod/LPF White Blood Count 10.3x10^3/uL (4.0-11.0) Red Blood Count 4.69x10^6/uL (4.30-5.70) Hemoglobin 13.6g/dL (13.0-17.5) Hematocrit 40.6% (39.0-53.0) Mean Corpuscular Volume 87fL (79-100) Mean Corpuscular Hemoglobin 29pg (25-35) Mean Corpuscular Hemoglobin Concent 34g/dL (31-37) Red Cell Distribution Width 13.8% (11.5-14.5) Platelet Count 320x10^3/uL (140-400) Neutrophils (%) (Auto) 63% (31-73) Lymphocytes (%) (Auto) 29% (24-48) Monocytes (%) (Auto) 6% (0-9) Eosinophils (%) (Auto) 2% (0-3) Basophils (%) (Auto) 1% (0-3) Neutrophils # (Auto) 6.4x10^3uL (1.8-7.7) Lymphocytes # (Auto) 2.9x10^3/uL (1.0-4.8) Monocytes # (Auto) 0.6x10^3/uL (0.0-1.1) Eosinophils # (Auto) 0.2x10^3/uL (0.0-0.7) Basophils # (Auto) 0.0x10^3/uL (0.0-0.2) Sodium Level 137mmol/L (136-145) Potassium Level 4.2mmol/L (3.5-5.1) Chloride Level 104mmol/L (98-107) Carbon Dioxide Level 27mmol/L (21-32) Anion Gap 6 (6-14) Blood Urea Nitrogen 13mg/dL (8-26) Creatinine 0.9mg/dL (0.7-1.3) Estimated GFR (Cockcroft-Gault) 96.0 Glucose Level 86mg/dL (70-99) Calcium Level 9.1mg/dL (8.5-10.1) Laboratory Tests Test 02/10/17 17:10 02/10/17 17:40 Urine Collection Type Unknown Urine Color Yellow Urine Clarity Clear Urine pH 7.5 Urine Specific Hodge 1.020 Urine Protein Negativemg/dL (NEG-TRACE) Urine Glucose (UA) Negativemg/dL (NEG) Urine Ketones (Stick) Negativemg/dL (NEG) Urine Blood Negative (NEG) Urine Nitrite Negative (NEG) Urine Bilirubin Negative (NEG) Urine Urobilinogen Dipstick 0.2mg/dL (0.2 mg/dL) Urine Leukocyte Esterase Small (NEG) Urine RBC 0/HPF (0-2) Urine WBC 1-4/HPF (0-4) Urine Squamous Epithelial Cells Occ/LPF Urine Bacteria 0/HPF (0-FEW) Urine Mucus Mod/LPF White Blood Count 10.3x10^3/uL (4.0-11.0) Red Blood Count 4.69x10^6/uL (4.30-5.70) Hemoglobin 13.6g/dL (13.0-17.5) Hematocrit 40.6% (39.0-53.0) Mean Corpuscular Volume 87fL (79-100) Mean Corpuscular Hemoglobin 29pg (25-35) Mean Corpuscular Hemoglobin Concent 34g/dL (31-37) Red Cell Distribution Width 13.8% (11.5-14.5) Platelet Count 320x10^3/uL (140-400) Neutrophils (%) (Auto) 63% (31-73) Lymphocytes (%) (Auto) 29% (24-48) Monocytes (%) (Auto) 6% (0-9) Eosinophils (%) (Auto) 2% (0-3) Basophils (%) (Auto) 1% (0-3) Neutrophils # (Auto) 6.4x10^3uL (1.8-7.7) Lymphocytes # (Auto) 2.9x10^3/uL (1.0-4.8) Monocytes # (Auto) 0.6x10^3/uL (0.0-1.1) Eosinophils # (Auto) 0.2x10^3/uL (0.0-0.7) Basophils # (Auto) 0.0x10^3/uL (0.0-0.2) Sodium Level 137mmol/L (136-145) Potassium Level 4.2mmol/L (3.5-5.1) Chloride Level 104mmol/L (98-107) Carbon Dioxide Level 27mmol/L (21-32) Anion Gap 6 (6-14) Blood Urea Nitrogen 13mg/dL (8-26) Creatinine 0.9mg/dL (0.7-1.3) Estimated GFR (Cockcroft-Gault) 96.0 Glucose Level 86mg/dL (70-99) Calcium Level 9.1mg/dL (8.5-10.1) Medications Current Medications Fentanyl Citrate (Fentanyl 2ml Vial) 50 mcg PRN Q15MIN PRN IV PAIN GREATER THAN 3/10; Start 02/10/17 at 17:15; Stop 02/11/17 at 17:14 Ketorolac Tromethamine (Toradol) 15 mg 1X ONCE IV Last administered on 17:45; Start 02/10/17 at 17:15; Stop 02/10/17 at 17:16; Status DC Ondansetron HCl (Zofran) 4 mg PRN Q8HRS PRN IV NAUSEA/VOMITING; Start 02/10/17 at 17:45; Stop 02/11/17 at 17:44 Fentanyl Citrate (Fentanyl 2ml Vial) 50 mcg PRN Q2HR PRN IV PAIN Last administered on 02/10/17 22:16; Start 02/10/17 at 17:45; Stop 02/11/17 at 17:44 Acetaminophen 650 mg 650 mg PRN Q4HRS PRN PO FEVER; Start 02/10/17 at 17:45; Stop 02/11/17 at 17:44 Sodium Chloride (Iv Sodium Chloride 0.9% 1000ml Bag) 1,000 ml @ 75 mls/hr [id number] IV Last administered on 02/10/17 21:58; Start 02/10/17 at 20:30 Active Scripts Active Percocet 7.5-325 Mg Tablet (Oxycodone/Acetaminophen) 1 Each Tablet 1 Tab PO Q6HRS PRN Flomax (Tamsulosin Hcl) 0.4 Mg Cap.er.24h 0.4 Mg PO DAILY Hydrocodone-Apap 5-325 (Hydrocodone Bit/Acetaminophen) 1 Each Tablet 1 Tab PO PRN Q4HRS PRN Vitals/I & O Vital Sign - Last 24 Hours 02/10/17 02/10/17 02/10/17 02/10/17 17:00 17:30 18:00 18:30 Temp 98.4 98.4 Pulse 80 79 75 75 Resp 20 B/P 141/79 117/67 125/74 122/65 Pulse Ox 97 97 97 97 O2 Delivery Room Air Room Air Room Air Room Air 02/10/17 02/10/17 02/10/17 19:00 21:00 22:16 Temp 98.6 98.6 Pulse 84 Resp 20 B/P 135/72 Pulse Ox 98 98 O2 Delivery Room Air Room Air Room Air CHICO TAYLOR MD February 10, 2017 22:34
[2017-02-10 23:04] VITALS: BP 120/76
--- NOTE | 2017-02-10 23:57 | HP ---
ADMIT DATE: 02/10/2017 CHIEF COMPLAINT: Renal colic. HISTORY OF PRESENT ILLNESS: The patient is a pleasant, 37-year-old male, who presents with renal colic Dr. Howell ____ 6 mm stone. He has now been sent over to our facility. We are going to admit him. He is going for cystoscopy in the morning. PAST MEDICAL HISTORY: Renal stones. ALLERGIES: None. FAMILY HISTORY: Renal stone. SOCIAL HISTORY: He does not drink, smoke or take drugs. He is forklift truck mechanic. He is . MEDICATIONS: Reviewed, please refer to the MRAD. REVIEW OF SYSTEMS: GENERAL: No history of weight change, weakness or fevers. SKIN: No bruising, hair changes or rashes. EYES: No blurred, double or loss of vision. NOSE AND THROAT: No history of nosebleeds, hoarseness or sore throat. HEART: No history of palpitations, chest pain or shortness of breath on exertion. LUNGS: Denies cough, hemoptysis, wheezing or shortness of breath. GASTROINTESTINAL: Denies changes in appetite, nausea, vomiting, diarrhea or constipation. GENITOURINARY: No history of frequency, urgency, hesitancy or nocturia. NEUROLOGIC: Denies history of numbness, tingling, tremor or weakness. PSYCHIATRIC: No history of panic, anxiety or depression. ENDOCRINE: No history of heat or cold intolerance, polyuria or polydipsia. MUSCULOSKELETAL: He complains of right flank pain. PHYSICAL EXAMINATION: VITAL SIGNS: Temperature afebrile, pulse 72, respirations 20, blood pressure 144/90. GENERAL: He is alert, cooperative. HEART: Normal S1, S2. LUNGS: Clear. ABDOMEN: Soft, tender in the right flank. EXTREMITIES: No edema. SKIN: No rashes. ENDOCRINE: No thyromegaly. LYMPHATICS: No cervical nodes. HEMATOPOIETIC: No bruising. ASSESSMENT AND PLAN: Renal stone with intractable pain. The patient has been admitted. We are consulting Dr. Howell, is going for a cystoscopy in the morning. For now, IV fluids, IV morphine. Continue home medicines. HELIO CASE DO DR: KIAN/haily JOB#: [id number] / [id number]
[2017-02-11] VITALS (8 sets, daily range): BP systolic 121–141; BP diastolic 71–89
--- NOTE | 2017-02-11 06:33 | ACF ---
Admission Forms Criteria RENAL COLIC AND KIDNEY STONES Clinical Indications for Admission to Inpatient Care ( Place 'X' for any and all applicable criteria): Admission is indicated for ANY ONE of the following (1)(2)(3)(4): [X]I. Inpatient admission required rather than observation care (Also use Renal Colic and Kidney Stones: Observation Care Criteria as appropriate) because of ANY ONE of the following: [ ]a) Severe pain requiring acute inpatient management [ ]b) Urinary tract infection identified [ ]c) Vomiting that is severe or persistent [ ]d) IV fluid required rather than oral rehydration to replace significant ongoing (eg, for greater than 24 hours) losses (greater than 200 mL/hr or 3 L/m2 per day) [ ]e) Percutaneous or open drainage (eg, abscess, biliary tract) procedures [X]f) Other condition, treatment or monitoring requiring inpatient admission [ ]II. Impending acute renal failure [ ]III. Bilateral obstruction [ ]IV. Single kidney with obstruction [ ]V. Transplanted kidney with obstruction [ ]. Possible open surgical procedure needed (eg, pyonephrosis, stone removal not amendable to other means) [ ]VII. Hemodynamic instability Extended stay beyond goal length of stay may be needed for(2)(3)(31): [ ]a) Failed initial stone removal (32) [ ]b) Pyonephrosis [ ]c) Obstructive uropathy with urinary tract infection [ ]d) Procedure complications [ ]e) Comorbidities (22) The original [facility] content created by [employer] has been revised. The portions of the content which have been revised are identified through the use of italic text or in bold, and [facility] has neither reviewed nor approved the modified material. All other unmodified content is copyright [facility]. Please see references footnoted in the original [facility] edition 2016 Admission Criteria Met?: Yes LAKESHA SCHULTZ February 11, 2017 06:33
--- NOTE | 2017-02-11 06:35 | CONS ---
DATE OF CONSULTATION: 02/10/2017 LOCATION: The patient's room . HISTORY OF PRESENT ILLNESS: The patient is a very pleasant 37-year-old white male with a history of 5-mm left distal ureteral stone. The patient was hospitalized approximately a week and a half ago with the stone and was discharged home for medical expulsive therapy. The patient continued to have intermittent pain with his left-sided stone and came back into the hospital with pain. PAST MEDICAL HISTORY: The patient had a history of prior stone about 2 years ago on the left side, which he has passed spontaneously. Also, the patient has a history of some arthritis, takes Ultram for that. PAST SURGICAL HISTORY: He had right wrist surgery in the past. ALLERGIES: He has no known drug allergies. LABORATORY DATA: The patient had a KUB done several days ago, which showed the stone ____ position. Ultrasound today showed no hydronephrosis. White count currently 10.3. Creatinine 0.9. Urine, 0 red cells, 1-4 white cells, 0 bacteria. PHYSICAL EXAMINATION: ABDOMEN: The patient with some left flank and abdominal tenderness. PLAN: I discussed with the patient his stone and we discussed the options, alternatives, benefits, risks and possible complications of continued medical expulsive therapy versus surgical intervention with cystoscopy, left retrograde pyelogram, possible left ureteroscopy, possible laser lithotripsy and left ureteral stent placement. He understands this and does wish to proceed with operation. We will therefore proceed accordingly. I certainly appreciate being allowed to participate in this patient's care. CHICO TAYLOR MD DR: CANELO/haily JOB#: [id number] / [id number]
[2017-02-11] MEDS ORDERED: IOHEXOL 300 MG/ML 50 ML VIAL. ONE (07:22)
[2017-02-11] MEDS ORDERED: LIDOCAINE 2% JELLY 6ML IN APPLICATOR. ONE ×2 (07:22→07:24)
[2017-02-11] MEDS: IV NORMAL SALINE 1000ML BAG 1,000 ML IV SCH (10:22)
[2017-02-11] MEDS ORDERED: fentaNYL PF VIAL 100 MCG/2 ML VIAL IV PRN ×3 (10:45)
[2017-02-11] MEDS ORDERED: PROCHLORPERAZINE 10 MG/2 ML VIAL. IV PRN (10:45)
[2017-02-11] MEDS ORDERED: HYDROmorphone 2 MG/ML VIAL IV PRN (10:45)
[2017-02-11] MEDS ORDERED: MEPERIDINE PF 25 MG/ML VIAL. IV PRN (10:45)
[2017-02-11] MEDS ORDERED: MORPHINE SULFATE 4 MG/ML DISP.SYRIN. IV PRN (10:45)
[2017-02-11] MEDS ORDERED: diphenhydrAMINE 50 MG/ML VIAL IV PRN (10:45)
[2017-02-11] MEDS ORDERED: LIDOCAINE 1% 1 ML SYRINGE. ID PRN (10:45)
[2017-02-11] MEDS ORDERED: MIDAZOLAM HCL/PF 2 MG/2 ML VIAL. IV PRN ×2 (10:45)
[2017-02-11] MEDS: IV RINGERS,LACTATED 1000ML 1,000 ML IV SCH (12:41)
[2017-02-11] MEDS ORDERED: PROPOFOL 20 ML IV ONE (13:45)
[2017-02-11] MEDS ORDERED: MIDAZOLAM HCL/PF 2 MG/2 ML VIAL. ONE (13:46)
[2017-02-11] MEDS ORDERED: fentaNYL PF VIAL 100 MCG/2 ML VIAL ONE ×2 (13:46→15:02)
[2017-02-11] MEDS ORDERED: LIDOCAINE 1% PF 5 ML VIAL. ONE (13:46)
[2017-02-11] MEDS ORDERED: DEXAMETHASONE SOD PHOS 20 MG/5 ML VIAL. ONE (13:50)
[2017-02-11] MEDS ORDERED: ONDANSETRON PF 4 MG/2 ML VIAL. ONE (13:50)
--- NOTE | 2017-02-11 14:18 | PDOC ---
PROGRESS NOTES Chief Complaint Chief Complaint 1. left flank pain with left ureteral stone 5mm plan: fu with uro cystoscopy today ivf pain control History of Present Illness History of Present Illness still in pain, waiting for cystoscopy Vitals Vitals Vital Signs Date Time Temp Pulse Resp B/P Pulse Ox O2 Delivery O2 Flow Rate FiO2 02/11/17 12:39 97.3 71 12 136/85 100 Room Air 97.3 Physical Exam General: Alert, Oriented X3, Cooperative Heart: Regular rate, Normal S1, Normal S2 Lungs: Clear Abdomen: Normal bowel sounds, Soft, Other (left flank tenderness) Labs LABS Laboratory Tests Test 02/10/17 17:10 02/10/17 17:40 Urine Collection Type Unknown Urine Color Yellow Urine Clarity Clear Urine pH 7.5 Urine Specific [place] 1.020 Urine Protein Negativemg/dL (NEG-TRACE) Urine Glucose (UA) Negativemg/dL (NEG) Urine Ketones (Stick) Negativemg/dL (NEG) Urine Blood Negative (NEG) Urine Nitrite Negative (NEG) Urine Bilirubin Negative (NEG) Urine Urobilinogen Dipstick 0.2mg/dL (0.2 mg/dL) Urine Leukocyte Esterase Small (NEG) Urine RBC 0/HPF (0-2) Urine WBC 1-4/HPF (0-4) Urine Squamous Epithelial Cells Occ/LPF Urine Bacteria 0/HPF (0-FEW) Urine Mucus Mod/LPF White Blood Count 10.3x10^3/uL (4.0-11.0) Red Blood Count 4.69x10^6/uL (4.30-5.70) Hemoglobin 13.6g/dL (13.0-17.5) Hematocrit 40.6% (39.0-53.0) Mean Corpuscular Volume 87fL (79-100) Mean Corpuscular Hemoglobin 29pg (25-35) Mean Corpuscular Hemoglobin Concent 34g/dL (31-37) Red Cell Distribution Width 13.8% (11.5-14.5) Platelet Count 320x10^3/uL (140-400) Neutrophils (%) (Auto) 63% (31-73) Lymphocytes (%) (Auto) 29% (24-48) Monocytes (%) (Auto) 6% (0-9) Eosinophils (%) (Auto) 2% (0-3) Basophils (%) (Auto) 1% (0-3) Neutrophils # (Auto) 6.4x10^3uL (1.8-7.7) Lymphocytes # (Auto) 2.9x10^3/uL (1.0-4.8) Monocytes # (Auto) 0.6x10^3/uL (0.0-1.1) Eosinophils # (Auto) 0.2x10^3/uL (0.0-0.7) Basophils # (Auto) 0.0x10^3/uL (0.0-0.2) Sodium Level 137mmol/L (136-145) Potassium Level 4.2mmol/L (3.5-5.1) Chloride Level 104mmol/L (98-107) Carbon Dioxide Level 27mmol/L (21-32) Anion Gap 6 (6-14) Blood Urea Nitrogen 13mg/dL (8-26) Creatinine 0.9mg/dL (0.7-1.3) Estimated GFR (Cockcroft-Gault) 96.0 Glucose Level 86mg/dL (70-99) Calcium Level 9.1mg/dL (8.5-10.1) Review of Systems Review of Systems No fever, chills, sob or chest pain Assessment and Plan Assessmemt and Plan Problems Medical Problems: (1) Ureteral colic Status: Acute Problems: Comment Review of Relevant I have reviewed the following items haily (where applicable) has been applied. Labs Laboratory Tests Test 02/10/17 17:10 02/10/17 17:40 Urine Collection Type Unknown Urine Color Yellow Urine Clarity Clear Urine pH 7.5 Urine Specific [place] 1.020 Urine Protein Negativemg/dL (NEG-TRACE) Urine Glucose (UA) Negativemg/dL (NEG) Urine Ketones (Stick) Negativemg/dL (NEG) Urine Blood Negative (NEG) Urine Nitrite Negative (NEG) Urine Bilirubin Negative (NEG) Urine Urobilinogen Dipstick 0.2mg/dL (0.2 mg/dL) Urine Leukocyte Esterase Small (NEG) Urine RBC 0/HPF (0-2) Urine WBC 1-4/HPF (0-4) Urine Squamous Epithelial Cells Occ/LPF Urine Bacteria 0/HPF (0-FEW) Urine Mucus Mod/LPF White Blood Count 10.3x10^3/uL (4.0-11.0) Red Blood Count 4.69x10^6/uL (4.30-5.70) Hemoglobin 13.6g/dL (13.0-17.5) Hematocrit 40.6% (39.0-53.0) Mean Corpuscular Volume 87fL (79-100) Mean Corpuscular Hemoglobin 29pg (25-35) Mean Corpuscular Hemoglobin Concent 34g/dL (31-37) Red Cell Distribution Width 13.8% (11.5-14.5) Platelet Count 320x10^3/uL (140-400) Neutrophils (%) (Auto) 63% (31-73) Lymphocytes (%) (Auto) 29% (24-48) Monocytes (%) (Auto) 6% (0-9) Eosinophils (%) (Auto) 2% (0-3) Basophils (%) (Auto) 1% (0-3) Neutrophils # (Auto) 6.4x10^3uL (1.8-7.7) Lymphocytes # (Auto) 2.9x10^3/uL (1.0-4.8) Monocytes # (Auto) 0.6x10^3/uL (0.0-1.1) Eosinophils # (Auto) 0.2x10^3/uL (0.0-0.7) Basophils # (Auto) 0.0x10^3/uL (0.0-0.2) Sodium Level 137mmol/L (136-145) Potassium Level 4.2mmol/L (3.5-5.1) Chloride Level 104mmol/L (98-107) Carbon Dioxide Level 27mmol/L (21-32) Anion Gap 6 (6-14) Blood Urea Nitrogen 13mg/dL (8-26) Creatinine 0.9mg/dL (0.7-1.3) Estimated GFR (Cockcroft-Gault) 96.0 Glucose Level 86mg/dL (70-99) Calcium Level 9.1mg/dL (8.5-10.1) Laboratory Tests Test 02/10/17 17:10 02/10/17 17:40 Urine Collection Type Unknown Urine Color Yellow Urine Clarity Clear Urine pH 7.5 Urine Specific [place] 1.020 Urine Protein Negativemg/dL (NEG-TRACE) Urine Glucose (UA) Negativemg/dL (NEG) Urine Ketones (Stick) Negativemg/dL (NEG) Urine Blood Negative (NEG) Urine Nitrite Negative (NEG) Urine Bilirubin Negative (NEG) Urine Urobilinogen Dipstick 0.2mg/dL (0.2 mg/dL) Urine Leukocyte Esterase Small (NEG) Urine RBC 0/HPF (0-2) Urine WBC 1-4/HPF (0-4) Urine Squamous Epithelial Cells Occ/LPF Urine Bacteria 0/HPF (0-FEW) Urine Mucus Mod/LPF White Blood Count 10.3x10^3/uL (4.0-11.0) Red Blood Count 4.69x10^6/uL (4.30-5.70) Hemoglobin 13.6g/dL (13.0-17.5) Hematocrit 40.6% (39.0-53.0) Mean Corpuscular Volume 87fL (79-100) Mean Corpuscular Hemoglobin 29pg (25-35) Mean Corpuscular Hemoglobin Concent 34g/dL (31-37) Red Cell Distribution Width 13.8% (11.5-14.5) Platelet Count 320x10^3/uL (140-400) Neutrophils (%) (Auto) 63% (31-73) Lymphocytes (%) (Auto) 29% (24-48) Monocytes (%) (Auto) 6% (0-9) Eosinophils (%) (Auto) 2% (0-3) Basophils (%) (Auto) 1% (0-3) Neutrophils # (Auto) 6.4x10^3uL (1.8-7.7) Lymphocytes # (Auto) 2.9x10^3/uL (1.0-4.8) Monocytes # (Auto) 0.6x10^3/uL (0.0-1.1) Eosinophils # (Auto) 0.2x10^3/uL (0.0-0.7) Basophils # (Auto) 0.0x10^3/uL (0.0-0.2) Sodium Level 137mmol/L (136-145) Potassium Level 4.2mmol/L (3.5-5.1) Chloride Level 104mmol/L (98-107) Carbon Dioxide Level 27mmol/L (21-32) Anion Gap 6 (6-14) Blood Urea Nitrogen 13mg/dL (8-26) Creatinine 0.9mg/dL (0.7-1.3) Estimated GFR (Cockcroft-Gault) 96.0 Glucose Level 86mg/dL (70-99) Calcium Level 9.1mg/dL (8.5-10.1) Medications Current Medications Fentanyl Citrate (Fentanyl 2ml Vial) 50 mcg PRN Q15MIN PRN IV PAIN GREATER THAN 3/10 Last administered on 02/11/17 10:22; Start 02/10/17 at 17:15; Stop 02/11 at 17:14 Ketorolac Tromethamine (Toradol) 15 mg 1X ONCE IV Last administered on 17:45; Start 02/10/17 at 17:15; Stop 02/10/17 at 17:16; Status DC Ondansetron HCl (Zofran) 4 mg PRN Q8HRS PRN IV NAUSEA/VOMITING; Start 02/10/17 at 17:45; Stop 02/11/17 at 17:44 Fentanyl Citrate (Fentanyl 2ml Vial) 50 mcg PRN Q2HR PRN IV PAIN Last administered on 02/10/17 22:16; Start 02/10/17 at 17:45; Stop 02/11/17 at 17:44 Acetaminophen 650 mg 650 mg PRN Q4HRS PRN PO FEVER; Start 02/10/17 at 17:45; Stop 02/11/17 at 17:44 Sodium Chloride (Iv Sodium Chloride 0.9% 1000ml Bag) 1,000 ml @ 75 mls/hr [id number] IV Last administered on 02/11/17 10:22; Start 02/10/17 at 20:30 Lidocaine HCl (Glydo (Lidocaine) Jelly) 6 pau STK-MED ONCE .ROUTE ; Start at 07:22; Stop 02/11/17 at 07:23; Status DC Iohexol (Omnipaque 300 Mg/ml) 50 ml STK-MED ONCE .ROUTE ; Start 02/11/17 at 07:22 ; Stop 02/11/17 at 07:23; Status DC Lidocaine HCl (Glydo (Lidocaine) Jelly) 6 pau STK-MED ONCE .ROUTE ; Start at 07:24; Stop 02/11/17 at 07:25; Status DC Fentanyl Citrate (Fentanyl 2ml Vial) 50 mcg PRN Q5MIN PRN IV Acute Pain; Start 02/11/17 at 10:45; Stop 02/12/17 at 10:44 Morphine Sulfate 4 mg PRN Q10MIN PRN IV Moderate Pain; Start 02/11/17 at 10:45; Stop 02/12/17 at 10:44 Hydromorphone HCl (Dilaudid) 0.4 mg PRN Q10MIN PRN IV Moderate to severe pain; Start 02/11/17 at 10:45; Stop 02/12/17 at 10:44 Meperidine HCl (Demerol) 12.5 mg PRN Q5MIN PRN IV SHIVERING; Start 02/11/17 at 10:45; Stop 02/12/17 at 10:44 Prochlorperazine Edisylate (Compazine) 5 mg PRN Q6HRS PRN IV Nausea/Vomiting, 1st Choice; Start 02/11/17 at 10:45; Stop 02/12/17 at 10:44 Diphenhydramine HCl (Benadryl) 12.5 mg PRN Q2HR PRN IV ITCHING; Start 02/11/17 at 10:45; Stop 02/12/17 at 10:44 Midazolam HCl (Versed) 2 mg PRN 1X PRN IV PRIOR TO PROCEDURE; Start 02/11/17 at 10:45; Stop 02/12/17 at 10:44 Midazolam HCl (Versed) 1 mg PRN 1X PRN IV PRIOR TO PROCEDURE; Start 02/11/17 at 10:45; Stop 02/12/17 at 10:44 Fentanyl Citrate (Fentanyl 2ml Vial) 25 mcg PRN Q5MIN PRN IV X 2 DOSES FOR PAIN ; Start 02/11/17 at 10:45; Stop 02/12/17 at 10:44 Fentanyl Citrate 50 mcg 50 mcg PRN Q5MIN PRN IV X 2 DOSES FOR PAIN; Start at 10:45; Stop 02/12/17 at 10:44 Lactated Ringer's (Iv Lactated Ringers) 1,000 ml @ 125 mls/hr Q8H IV Last administered on 02/11/17t 12:41; Start 02/11/17 at 10:41; Stop 02/11/17 at 22:40 Lidocaine HCl 2 ml 2 ml 1X PRN PRN ID IV START; Start 02/11/17 at 10:45; Stop at 10:44 Cefazolin Sodium/ Dextrose 50 ml @ As Directed STK-MED ONCE IV ; Start 02/11/17 at 12:32; Stop 02/11/17 at 12:33; Status DC Cefazolin Sodium/ Dextrose 50 ml @ 100 mls/hr 1X ONCE IV ; Start 02/11/17 at 12 :45; Stop 02/11/17 at 13:14; Status DC Propofol (Diprivan) 20 ml @ As Directed STK-MED ONCE IV ; Start 02/11/17 at 13:45 ; Stop 02/11/17 at 13:46; Status DC Midazolam HCl (Versed) 2 mg STK-MED ONCE .ROUTE ; Start 02/11/17 at 13:46; Stop 02/11/17 at 13:47; Status DC Fentanyl Citrate (Fentanyl 2ml Vial) 100 mcg STK-MED ONCE .ROUTE ; Start at 13:46; Stop 02/11/17 at 13:47; Status DC Lidocaine HCl (Xylocaine-Mpf 1% Vial) 5 ml STK-MED ONCE .ROUTE ; Start 02/11/17 at 13:46; Stop 02/11/17 at 13:47; Status DC Dexamethasone Sodium Phosphate (Decadron) 20 mg STK-MED ONCE .ROUTE ; Start 02/11 at 13:50; Stop 02/11/17 at 13:51; Status DC Ondansetron HCl (Zofran) 4 mg STK-MED ONCE .ROUTE ; Start 02/11/17 at 13:50; Stop 02/11/17 at 13:51; Status DC Active Scripts Active Percocet 7.5-325 Mg Tablet (Oxycodone/Acetaminophen) 1 Each Tablet 1 Tab PO Q6HRS PRN Flomax (Tamsulosin Hcl) 0.4 Mg Cap.er.24h 0.4 Mg PO DAILY Hydrocodone-Apap 5-325 (Hydrocodone Bit/Acetaminophen) 1 Each Tablet 1 Tab PO PRN Q4HRS PRN Vitals/I & O Vital Sign - Last 24 Hours 02/10/17 02/10/17 02/10/17 02/10/17 17:00 17:30 18:00 18:30 Temp 98.4 98.4 Pulse 80 79 75 75 Resp 20 B/P 141/79 117/67 125/74 122/65 Pulse Ox 97 97 97 97 O2 Delivery Room Air Room Air Room Air Room Air 02/10/17 02/10/17 02/10/17 02/10/17 19:00 21:00 22:16 23:04 Temp 98.6 98.7 98.6 98.7 Pulse 84 79 Resp 20 20 B/P 135/72 120/76 Pulse Ox 98 98 96 O2 Delivery Room Air Room Air Room Air Room Air 02/11/17 02/11/17 02/11/17 07:00 10:57 12:39 Temp 98.1 97.9 97.3 98.1 97.9 97.3 Pulse 69 70 71 Resp 20 20 12 B/P 138/88 135/84 136/85 Pulse Ox 99 99 100 O2 Delivery Room Air Room Air Room Air Intake and Output 02/10/17 02/10/17 02/11/17 15:00 23:00 07:00 Intake Total 0 ml Output Total 375 ml Balance -375 ml BRIGETTE BURGOS MD February 11, 2017 14:18
[2017-02-11] MEDS ORDERED: ACETAMINOPHEN 325 MG TABLET. PO PRN (14:30)
[2017-02-11] MEDS ORDERED: ONDANSETRON PF 4 MG/2 ML VIAL. IV PRN (14:30)
[2017-02-11] MEDS ORDERED: PHENYLEPHRINE in 0.9% NACL PF 1 MG/10 ML DISP.SYRIN. IV ONE (14:56)
[2017-02-11] MEDS ORDERED: SEVOFLURANE 61 TO 120 MINUTES. IH ONE (15:22)
--- NOTE | 2017-02-11 15:32 | PDOC4 ---
Operative Note Operative Note pre-op dx-left ureteral stone procedure-cystoscopy, left ureteroscopy with laser lithotripsy and stone extraction and stent placement surgeon-sim rico-general Pt. to PACU in stable condition CHICO TAYLOR MD February 11, 2017 15:32
[2017-02-11] MEDS: fentaNYL PF VIAL 100 MCG/2 ML VIAL IV PRN ×3 (16:51→23:08)
[2017-02-11] MEDS: oxyCODONE/APAP 7.5/325 1 TAB TABLET PO PRN (18:07)
--- NOTE | 2017-02-11 18:56 | OP ---
DATE OF SURGERY: 02/11/2017 OPERATION: Cystoscopy, left retrograde pyelogram, left ureteroscopy, left laser lithotripsy and extraction of left ureteral stone and placement of left double-J stent. SURGEON: Chico Howell MD ANESTHESIA: General. PREOPERATIVE DIAGNOSIS: Left distal ureteral stone. POSTOPERATIVE DIAGNOSIS: Left distal ureteral stone. INDICATIONS: The patient is a very pleasant 37-year-old white male with history of 5 mm left distal ureteral stone. The patient has been having intermittent renal colic over the past 2 weeks from the stone. The patient has been trying medical expulsive therapy without success. I have discussed with the patient the options, alternatives, benefits, risks and possible complications of continued medical expulsive therapy versus surgical intervention with cystoscopy, left retrograde pyelogram, possible left ureteroscopy, possible laser lithotripsy and possible left ureteral stent placement. He understands this and does wish to proceed out with operation. DESCRIPTION OF PROCEDURE: After obtaining informed consent, the patient was taken to operating room. After an excellent general anesthetic, the patient was placed in a dorsolithotomy position. Groin was prepped and draped in sterile fashion. The patient was preloaded with IV antibiotics. Panendoscopy and cystoscopy were then performed with the 30 and 70-degree lenses and the 21-[place]izen [place] cystoscope sheath. The patient was noted to have some mild urethral meatal stenosis, which was gently dilated up with sounds of the 24-Citizen [place] and then the patient was noted to have some wide caliber narrowing in the bulbar urethra; however, scope easily passed through this area. External sphincter appeared intact. Prostatic urethra showed some mild bilobar enlargement. Bladder was entered and inspected. The patient was noted to have some mild trabeculation in the bladder. Both ureteral orifices were identified and found to be grossly patent. No bladder stones or bladder tumors were identified. Radiopacity is seen in the area of the left distal ureter consistent with the patient's stone. Left retrograde pyelogram was performed. The patient noted to have filling defect in the left distal ureter with mild dilation of the ureter above that level. Following this, floppy tipped ZIPwire was then able to be passed up the left ureteral orifice past the stone up to the left ureter, to the left kidney. Following this, the left distal ureter and ureteral orifice were then gently dilated with the balloon dilator. Balloon dilator was removed leaving the ZIPwire in place as a safety wire. Following this, bladder was then drained, the cystoscope withdrawn from the patient. Following this, the thin rigid ureteroscope was then passed per urethra up alongside the ZIPwire up the left ureter until the stone was encountered, found to be yellowish in color. Stone was then treated with the holmium laser fiber at a power setting of 0.5 and 10. The patient's stone was moderately impacted, stone was fragmented into 1 and 2 mm fragments which were then evacuated with a Zero Tip Nitinol Basket under direct vision. After all the significant stone fragments were extracted, the ureter was inspected and found to be intact. Retrograde pyelogram showed the proximal collecting system to be also intact. Following this, the ureteroscope was withdrawn from the patient, cystoscope then replaced and then following this, a 6 x 28 double-J stent was then passed up the ZIPwire, placing one curl in the left kidney and another curl in the bladder and the ZIPwire removed. Stent position was checked by fluoroscopy and direct vision, found to be in good position. Following this, bladder was then drained, the cystoscope withdrawn from the patient. The patient tolerated the procedure very well, was taken to recovery room in stable condition. We will plan an inpatient followup in Urology office in 2 weeks for a cystoscopy and stent extraction. CHICO HOWELL MD DR: CANELO/haily JOB#: [id number] / [id number]
[2017-02-12] MEDS: oxyCODONE/APAP 7.5/325 1 TAB TABLET PO PRN ×4 (00:13→20:16)
[2017-02-12] MEDS: fentaNYL PF VIAL 100 MCG/2 ML VIAL IV PRN ×5 (01:35→13:35)
[2017-02-12 06:40] LABS: CALCIUM 8.8 mg/dL (8.5-10.1); CREATININE 0.9 mg/dL (0.7-1.3); POTASSIUM 4.4 mmol/L (3.5-5.1)
[2017-02-12 06:43] LABS: BASO % 0 % (0-3); EOS % 0 % (0-3); HEMATOCRIT 39.3 % (39.0-53.0); HEMOGLOBIN 13.3 g/dL (13.0-17.5); LYMPH # 1.9 x10^3/uL (1.0-4.8); LYMPH % 9 % (24-48); MEAN CORPUSCULAR HEMOGLOBIN 29 pg (25-35); MEAN CORPUSCULAR HGB CONC 34 g/dL (31-37); MEAN CORPUSCULAR VOLUME 87 fL (79-100); MONO % 3 % (0-9); NEUT % 88 % (31-73); PLATELET COUNT 332 x10^3/uL (140-400); RED BLOOD COUNT 4.54 x10^6/uL (4.30-5.70); RED CELL DISTRIBUTION WIDTH 13.9 % (11.5-14.5); WHITE BLOOD COUNT 21.4 x10^3/uL (4.0-11.0)
[2017-02-12 07:00] VITALS: BP 132/71
[2017-02-12] MEDS: IV RINGERS,LACTATED 1000ML 1,000 ML IV SCH (07:48)
[2017-02-12] MEDS: IV NORMAL SALINE 1000ML BAG 1,000 ML IV SCH ×2 (07:54→12:30)
--- NOTE | 2017-02-12 08:44 | PDOC ---
PROGRESS NOTES Subjective Subjective Pt. s/p left ureteroscopy and laser lithotripsy and stent Objective Objective Vital Signs Date Time Temp Pulse Resp B/P Pulse Ox O2 Delivery O2 Flow Rate FiO2 02/12/17 07:56 Room Air 02/12/17 07:00 97.8 66 20 132/71 97 97.8 02/12/17 05:02 10.0 Intake and Output 02/12/17 07:00 Intake Total 3100 ml Output Total 450 ml Balance 2650 ml Intake Oral 1750 ml IV Total 1350 ml Output Urine Total 450 ml Estimated Blood Loss 0 ml # Voids 11 Physical Exam Physical Exam Pt. with dysuria Plan Plan of Care Pt. afeb. WBC-21.4 Pt. reports that he had pain and hematuria 6 months ago, but that had resolved and no stone had passed. It is possible that left distal stone had in fact been there since that time. Pt's urine C and S from 02/10 showed no growth. Will place on Levaquin and recheck WBC tomorrow. Pyridium for dysuria Problems Medical Problems: (1) Ureteral colic Status: Acute Comment Review of Relevant I have reviewed the following items haily (where applicable) has been applied. Labs Laboratory Tests Test 02/10/17 17:10 02/10/17 17:40 02/12/17 05:30 Urine Collection Type Unknown Urine Color Yellow Urine Clarity Clear Urine pH 7.5 Urine Specific [place] 1.020 Urine Protein Negativemg/dL (NEG-TRACE) Urine Glucose (UA) Negativemg/dL (NEG) Urine Ketones (Stick) Negativemg/dL (NEG) Urine Blood Negative (NEG) Urine Nitrite Negative (NEG) Urine Bilirubin Negative (NEG) Urine Urobilinogen Dipstick 0.2mg/dL (0.2 mg/dL) Urine Leukocyte Esterase Small (NEG) Urine RBC 0/HPF (0-2) Urine WBC 1-4/HPF (0-4) Urine Squamous Epithelial Cells Occ/LPF Urine Bacteria 0/HPF (0-FEW) Urine Mucus Mod/LPF White Blood Count 10.3x10^3/uL (4.0-11.0) 21.4x10^3/uL (4.0-11.0) Red Blood Count 4.69x10^6/uL (4.30-5.70) 4.54x10^6/uL (4.30-5.70) Hemoglobin 13.6g/dL (13.0-17.5) 13.3g/dL (13.0-17.5) Hematocrit 40.6% (39.0-53.0) 39.3% (39.0-53.0) Mean Corpuscular Volume 87fL (79-100) 87fL (79-100) Mean Corpuscular Hemoglobin 29pg (25-35) 29pg (25-35) Mean Corpuscular Hemoglobin Concent 34g/dL (31-37) 34g/dL (31-37) Red Cell Distribution Width 13.8% (11.5-14.5) 13.9% (11.5-14.5) Platelet Count 320x10^3/uL (140-400) 332x10^3/uL (140-400) Neutrophils (%) (Auto) 63% (31-73) 88% (31-73) Lymphocytes (%) (Auto) 29% (24-48) 9% (24-48) Monocytes (%) (Auto) 6% (0-9) 3% (0-9) Eosinophils (%) (Auto) 2% (0-3) 0% (0-3) Basophils (%) (Auto) 1% (0-3) 0% (0-3) Neutrophils # (Auto) 6.4x10^3uL (1.8-7.7) 18.9x10^3uL (1.8-7.7) Lymphocytes # (Auto) 2.9x10^3/uL (1.0-4.8) 1.9x10^3/uL (1.0-4.8) Monocytes # (Auto) 0.6x10^3/uL (0.0-1.1) 0.6x10^3/uL (0.0-1.1) Eosinophils # (Auto) 0.2x10^3/uL (0.0-0.7) 0.0x10^3/uL (0.0-0.7) Basophils # (Auto) 0.0x10^3/uL (0.0-0.2) 0.0x10^3/uL (0.0-0.2) Sodium Level 137mmol/L (136-145) 139mmol/L (136-145) Potassium Level 4.2mmol/L (3.5-5.1) 4.4mmol/L (3.5-5.1) Chloride Level 104mmol/L (98-107) 105mmol/L (98-107) Carbon Dioxide Level 27mmol/L (21-32) 23mmol/L (21-32) Anion Gap 6 (6-14) 11 (6-14) Blood Urea Nitrogen 13mg/dL (8-26) 15mg/dL (8-26) Creatinine 0.9mg/dL (0.7-1.3) 0.9mg/dL (0.7-1.3) Estimated GFR (Cockcroft-Gault) 96.0 96.0 Glucose Level 86mg/dL (70-99) 128mg/dL (70-99) Calcium Level 9.1mg/dL (8.5-10.1) 8.8mg/dL (8.5-10.1) Laboratory Tests Test 02/12/17 05:30 White Blood Count 21.4x10^3/uL (4.0-11.0) Red Blood Count 4.54x10^6/uL (4.30-5.70) Hemoglobin 13.3g/dL (13.0-17.5) Hematocrit 39.3% (39.0-53.0) Mean Corpuscular Volume 87fL (79-100) Mean Corpuscular Hemoglobin 29pg (25-35) Mean Corpuscular Hemoglobin Concent 34g/dL (31-37) Red Cell Distribution Width 13.9% (11.5-14.5) Platelet Count 332x10^3/uL (140-400) Neutrophils (%) (Auto) 88% (31-73) Lymphocytes (%) (Auto) 9% (24-48) Monocytes (%) (Auto) 3% (0-9) Eosinophils (%) (Auto) 0% (0-3) Basophils (%) (Auto) 0% (0-3) Neutrophils # (Auto) 18.9x10^3uL (1.8-7.7) Lymphocytes # (Auto) 1.9x10^3/uL (1.0-4.8) Monocytes # (Auto) 0.6x10^3/uL (0.0-1.1) Eosinophils # (Auto) 0.0x10^3/uL (0.0-0.7) Basophils # (Auto) 0.0x10^3/uL (0.0-0.2) Sodium Level 139mmol/L (136-145) Potassium Level 4.4mmol/L (3.5-5.1) Chloride Level 105mmol/L (98-107) Carbon Dioxide Level 23mmol/L (21-32) Anion Gap 11 (6-14) Blood Urea Nitrogen 15mg/dL (8-26) Creatinine 0.9mg/dL (0.7-1.3) Estimated GFR (Cockcroft-Gault) 96.0 Glucose Level 128mg/dL (70-99) Calcium Level 8.8mg/dL (8.5-10.1) Microbiology 02/10/17 Urine Culture - Preliminary, Resulted 02/10/17 Urine Culture Result 1 ([facility]) - Preliminary, Resulted Medications Current Medications Fentanyl Citrate (Fentanyl 2ml Vial) 50 mcg PRN Q15MIN PRN IV PAIN GREATER THAN 3/10 Last administered on 02/11/17 10:22; Start 02/10/17 at 17:15; Stop 02/11 at 17:14; Status DC Ketorolac Tromethamine (Toradol) 15 mg 1X ONCE IV Last administered on 17:45; Start 02/10/17 at 17:15; Stop 02/10/17 at 17:16; Status DC Ondansetron HCl (Zofran) 4 mg PRN Q8HRS PRN IV NAUSEA/VOMITING; Start 02/10/17 at 17:45; Stop 02/11/17 at 17:44; Status DC Fentanyl Citrate (Fentanyl 2ml Vial) 50 mcg PRN Q2HR PRN IV PAIN Last administered on 02/11/17 16:51; Start 02/10/17 at 17:45; Stop 02/11/17 at 17:44; Status DC Acetaminophen 650 mg 650 mg PRN Q4HRS PRN PO FEVER; Start 02/10/17 at 17:45; Stop 02/11/17 at 17:44; Status DC Sodium Chloride (Iv Sodium Chloride 0.9% 1000ml Bag) 1,000 ml @ 75 mls/hr [id number] IV Last administered on 02/12/17 07:54; Start 02/10/17 at 20:30 Lidocaine HCl (Glydo (Lidocaine) Jelly) 6 pau STK-MED ONCE .ROUTE Last administered on 02/11/17 15:18; Start 02/11/17 at 07:22; Stop 02/11/17 at 07:23; Status DC Iohexol (Omnipaque 300 Mg/ml) 50 ml STK-MED ONCE .ROUTE Last administered on 14:55; Start 02/11/17 at 07:22; Stop 02/11/17 at 07:23; Status DC Lidocaine HCl (Glydo (Lidocaine) Jelly) 6 pau STK-MED ONCE .ROUTE Last administered on 02/11/17 15:18; Start 02/11/17 at 07:24; Stop 02/11/17 at 07:25; Status DC Fentanyl Citrate (Fentanyl 2ml Vial) 50 mcg PRN Q5MIN PRN IV Acute Pain; Start 02/11/17 at 10:45; Stop 02/12/17 at 10:44 Morphine Sulfate 4 mg PRN Q10MIN PRN IV Moderate Pain; Start 02/11/17 at 10:45; Stop 02/12/17 at 10:44 Hydromorphone HCl (Dilaudid) 0.4 mg PRN Q10MIN PRN IV Moderate to severe pain; Start 02/11/17 at 10:45; Stop 02/12/17 at 10:44 Meperidine HCl (Demerol) 12.5 mg PRN Q5MIN PRN IV SHIVERING; Start 02/11/17 at 10:45; Stop 02/12/17 at 10:44 Prochlorperazine Edisylate (Compazine) 5 mg PRN Q6HRS PRN IV Nausea/Vomiting, 1st Choice; Start 02/11/17 at 10:45; Stop 02/12/17 at 10:44 Diphenhydramine HCl (Benadryl) 12.5 mg PRN Q2HR PRN IV ITCHING; Start 02/11/17 at 10:45; Stop 02/12/17 at 10:44 Midazolam HCl (Versed) 2 mg PRN 1X PRN IV PRIOR TO PROCEDURE; Start 02/11/17 at 10:45; Stop 02/12/17 at 10:44 Midazolam HCl (Versed) 1 mg PRN 1X PRN IV PRIOR TO PROCEDURE; Start 02/11/17 at 10:45; Stop 02/12/17 at 10:44 Fentanyl Citrate (Fentanyl 2ml Vial) 25 mcg PRN Q5MIN PRN IV X 2 DOSES FOR PAIN ; Start 02/11/17 at 10:45; Stop 02/12/17 at 10:44 Fentanyl Citrate 50 mcg 50 mcg PRN Q5MIN PRN IV X 2 DOSES FOR PAIN; Start at 10:45; Stop 02/12/17 at 10:44 Lactated Ringer's (Iv Lactated Ringers) 1,000 ml @ 125 mls/hr Q8H IV Last administered on 02/11/17 12:41; Start 02/11/17 at 10:41; Stop 02/11/17 at 22:40; Status DC Lidocaine HCl 2 ml 2 ml 1X PRN PRN ID IV START; Start 02/11/17 at 10:45; Stop at 10:44 Cefazolin Sodium/ Dextrose 50 ml @ As Directed STK-MED ONCE IV ; Start 02/11/17 at 12:32; Stop 02/11/17 at 12:33; Status DC Cefazolin Sodium/ Dextrose 50 ml @ 100 mls/hr 1X ONCE IV Last administered on 02/11/17 14:03; Start 02/11/17 at 12:45; Stop 02/11/17 at 13:14; Status DC Propofol (Diprivan) 20 ml @ As Directed STK-MED ONCE IV ; Start 02/11/17 at 13:45 ; Stop 02/11/17 at 13:46; Status DC Midazolam HCl (Versed) 2 mg STK-MED ONCE .ROUTE ; Start 02/11/17 at 13:46; Stop 02/11/17 at 13:47; Status DC Fentanyl Citrate (Fentanyl 2ml Vial) 100 mcg STK-MED ONCE .ROUTE ; Start at 13:46; Stop 02/11/17 at 13:47; Status DC Lidocaine HCl (Xylocaine-Mpf 1% Vial) 5 ml STK-MED ONCE .ROUTE ; Start 02/11/17 at 13:46; Stop 02/11/17 at 13:47; Status DC Dexamethasone Sodium Phosphate (Decadron) 20 mg STK-MED ONCE .ROUTE ; Start 02/11 at 13:50; Stop 02/11/17 at 13:51; Status DC Ondansetron HCl (Zofran) 4 mg STK-MED ONCE .ROUTE ; Start 02/11/17 at 13:50; Stop 02/11/17 at 13:51; Status DC Acetaminophen (Tylenol) 650 mg PRN Q6HRS PRN PO FEVER; Start 02/11/17 at 14:30 Ondansetron HCl (Zofran) 4 mg PRN Q6HRS PRN IV NAUSEA/VOMITING; Start 02/11/17 at 14:30 Phenylephrine HCl 1 mg STK-MED ONCE IV ; Start 02/11/17 at 14:56; Stop 02/11/17 at 14:57; Status DC Fentanyl Citrate (Fentanyl 2ml Vial) 100 mcg STK-MED ONCE .ROUTE ; Start at 15:02; Stop 02/11/17 at 15:03; Status DC Sevoflurane (Ultane) 60 ml STK-MED ONCE IH ; Start 02/11/17 at 15:22; Stop at 15:23; Status DC Oxycodone/ Acetaminophen (Percocet 7.5/ 325) 1 tab PRN Q6HRS PRN PO PAIN Last administered on 02/12/17 07:56; Start 02/11/17 at 18:00 Fentanyl Citrate (Fentanyl 2ml Vial) 25 mcg PRN Q2HR PRN IV PAIN Last administered on 02/12/17 07:56; Start 02/11/17 at 20:15; Stop 02/12/17 at 20:10 Active Scripts Active Percocet 7.5-325 Mg Tablet (Oxycodone/Acetaminophen) 1 Each Tablet 1 Tab PO Q6HRS PRN Flomax (Tamsulosin Hcl) 0.4 Mg Cap.er.24h 0.4 Mg PO DAILY Hydrocodone-Apap 5-325 (Hydrocodone Bit/Acetaminophen) 1 Each Tablet 1 Tab PO PRN Q4HRS PRN Vitals/I & O Vital Sign - Last 24 Hours 02/11/17 02/11/17 02/11/17 02/11/17 10:57 12:39 15:00 15:35 Temp 97.9 97.3 97.9 97.3 Pulse 70 71 80 Resp 20 12 18 B/P 135/84 136/85 122/79 Pulse Ox 99 100 95 O2 Delivery Room Air Room Air Room Air Mask O2 Flow Rate 10 02/11/17 02/11/17 02/11/17 02/11/17 15:35 15:50 16:05 16:20 Temp 98.1 98.1 98.1 98.1 Pulse 88 70 74 75 Resp 18 18 18 18 B/P 104/59 115/58 118/66 118/66 Pulse Ox 99 99 95 96 O2 Delivery Simple Mask Simple Mask Room Air Room Air O2 Flow Rate 10 10 02/11/17 02/11/17 02/11/17 02/11/17 16:30 16:45 17:15 19:00 Temp 98.6 98.6 Pulse 77 82 91 81 Resp 18 18 20 B/P 124/77 123/88 123/89 121/71 Pulse Ox 94 95 94 95 O2 Delivery Room Air Room Air Room Air Room Air 02/11/17 02/11/17 02/11/17 02/11/17 20:00 20:36 23:08 23:09 Temp 98.2 98.2 Pulse 85 Resp 20 B/P 141/ Pulse Ox 95 95 97 O2 Delivery Room Air Room Air Room Air Room Air O2 Flow Rate 10.0 10.0 02/11/17 02/12/17 02/12/17 02/12/17 23:38 00:13 01:13 01:35 Pulse Ox 97 97 97 97 O2 Delivery Room Air Room Air Room Air Room Air O2 Flow Rate 10.0 10.0 10.0 10.0 02/12/17 02/12/17 02/12/17 02/12/17 05:02 07:00 07:56 07:56 Temp 97.8 97.8 Pulse 66 Resp 20 B/P 132/71 Pulse Ox 97 97 O2 Delivery Room Air Room Air Room Air Room Air O2 Flow Rate 10.0 Intake and Output 02/11/17 02/11/17 02/12/17 15:00 23:00 07:00 Intake Total 50 ml 1800 ml 1250 ml Output Total 450 ml 0 ml Balance -400 ml 1800 ml 1250 ml CHICO TAYLOR MD February 12, 2017 08:44
[2017-02-12] MEDS: TAMSULOSIN 0.4 MG CAP.ER.24H. PO SCH (09:37)
[2017-02-12] MEDS ORDERED: ALBUTEROL SULFATE 2.5 MG/3 ML NEBU. NEB ONE (10:30)
[2017-02-12 10:37] VITALS: BP 144/96
[2017-02-12] MEDS ORDERED: ALBUTEROL SULFATE 2.5 MG/3 ML NEBU. NEB PRN (10:45)
[2017-02-12] MEDS ORDERED: methylPREDNISolone SOD SUCC PF 125 MG/2 ML VIAL. IV ONE (11:00)
[2017-02-12] MEDS ORDERED: MAGNESIUM HYDROXIDE 2,400 MG/30 ML ORAL.SUSP. PO PRN (11:00)
[2017-02-12] MEDS: PHENAZOPYRIDINE 200 MG TABLET. PO PRN ×2 (11:23→20:20)
[2017-02-12] MEDS: DOCUSATE SODIUM 100 MG CAPSULE. PO SCH ×2 (11:23→20:15)
[2017-02-12] MEDS: SENNOSIDES/DOCUSATE 8.6/50MG TABLET. PO SCH ×2 (11:23→20:16)
[2017-02-12 11:28] LABS: PLT ESTIMATE ADEQUATE (ADEQUATE)
--- NOTE | 2017-02-12 13:26 | PDOC ---
PROGRESS NOTES Chief Complaint Chief Complaint 1. left flank pain with left ureteral stone 5mm post cystoscopy and lisotripsy and left ureteral stent done on 02/11 2. tobaccoism 3. skin rash 11/14 levaquin possibly 4. Leukocytosis post op, could 11/14 uti plan: fu with uro cystoscopy and lisotripsy and left ureteral stent done on 02/11 ivf pain control dc levaquin, add ceftriaxone, albuterol prn, solumedro x1 dc tmr if wbc better History of Present Illness History of Present Illness left flank pain much better high WBC face, neck and upper chest mild diffuse redness today, could 2 levaquin , not itchy, but feels itchy eyes, with mild sob Vitals Vitals Vital Signs Date Time Temp Pulse Resp B/P Pulse Ox O2 Delivery O2 Flow Rate FiO2 02/12/17 12:00 Room Air 02/12/17 10:37 97.8 102 22 144/96 91 97.8 02/12/17 05:02 10.0 Physical Exam Physical Exam face, neck and upper chest mild diffuse redness today, could 2 levaquin General: Alert, Oriented X3, Cooperative Heart: Regular rate, Normal S1, Normal S2 Lungs: Wheezing (bl mild) Abdomen: Normal bowel sounds, Soft, Other (left flank tenderness) Labs LABS Laboratory Tests Test 02/12/17 05:30 White Blood Count 21.4x10^3/uL (4.0-11.0) Red Blood Count 4.54x10^6/uL (4.30-5.70) Hemoglobin 13.3g/dL (13.0-17.5) Hematocrit 39.3% (39.0-53.0) Mean Corpuscular Volume 87fL (79-100) Mean Corpuscular Hemoglobin 29pg (25-35) Mean Corpuscular Hemoglobin Concent 34g/dL (31-37) Red Cell Distribution Width 13.9% (11.5-14.5) Platelet Count 332x10^3/uL (140-400) Neutrophils (%) (Auto) 88% (31-73) Lymphocytes (%) (Auto) 9% (24-48) Monocytes (%) (Auto) 3% (0-9) Eosinophils (%) (Auto) 0% (0-3) Basophils (%) (Auto) 0% (0-3) Neutrophils # (Auto) 18.9x10^3uL (1.8-7.7) Lymphocytes # (Auto) 1.9x10^3/uL (1.0-4.8) Monocytes # (Auto) 0.6x10^3/uL (0.0-1.1) Eosinophils # (Auto) 0.0x10^3/uL (0.0-0.7) Basophils # (Auto) 0.0x10^3/uL (0.0-0.2) Segmented Neutrophils % 94% (35-66) Lymphocytes % 4% (24-48) Monocytes % 2% (0-10) Platelet Estimate Adequate (ADEQUATE) Sodium Level 139mmol/L (136-145) Potassium Level 4.4mmol/L (3.5-5.1) Chloride Level 105mmol/L (98-107) Carbon Dioxide Level 23mmol/L (21-32) Anion Gap 11 (6-14) Blood Urea Nitrogen 15mg/dL (8-26) Creatinine 0.9mg/dL (0.7-1.3) Estimated GFR (Cockcroft-Gault) 96.0 Glucose Level 128mg/dL (70-99) Calcium Level 8.8mg/dL (8.5-10.1) Review of Systems Review of Systems no fever, chills, chest pain Assessment and Plan Assessmemt and Plan Problems Medical Problems: (1) Ureteral colic Status: Acute Problems: Comment Review of Relevant I have reviewed the following items haily (where applicable) has been applied. Labs Laboratory Tests Test 02/10/17 17:10 02/10/17 17:40 02/12/17 05:30 Urine Collection Type Unknown Urine Color Yellow Urine Clarity Clear Urine pH 7.5 Urine Specific Mallory 1.020 Urine Protein Negativemg/dL (NEG-TRACE) Urine Glucose (UA) Negativemg/dL (NEG) Urine Ketones (Stick) Negativemg/dL (NEG) Urine Blood Negative (NEG) Urine Nitrite Negative (NEG) Urine Bilirubin Negative (NEG) Urine Urobilinogen Dipstick 0.2mg/dL (0.2 mg/dL) Urine Leukocyte Esterase Small (NEG) Urine RBC 0/HPF (0-2) Urine WBC 1-4/HPF (0-4) Urine Squamous Epithelial Cells Occ/LPF Urine Bacteria 0/HPF (0-FEW) Urine Mucus Mod/LPF White Blood Count 10.3x10^3/uL (4.0-11.0) 21.4x10^3/uL (4.0-11.0) Red Blood Count 4.69x10^6/uL (4.30-5.70) 4.54x10^6/uL (4.30-5.70) Hemoglobin 13.6g/dL (13.0-17.5) 13.3g/dL (13.0-17.5) Hematocrit 40.6% (39.0-53.0) 39.3% (39.0-53.0) Mean Corpuscular Volume 87fL (79-100) 87fL (79-100) Mean Corpuscular Hemoglobin 29pg (25-35) 29pg (25-35) Mean Corpuscular Hemoglobin Concent 34g/dL (31-37) 34g/dL (31-37) Red Cell Distribution Width 13.8% (11.5-14.5) 13.9% (11.5-14.5) Platelet Count 320x10^3/uL (140-400) 332x10^3/uL (140-400) Neutrophils (%) (Auto) 63% (31-73) 88% (31-73) Lymphocytes (%) (Auto) 29% (24-48) 9% (24-48) Monocytes (%) (Auto) 6% (0-9) 3% (0-9) Eosinophils (%) (Auto) 2% (0-3) 0% (0-3) Basophils (%) (Auto) 1% (0-3) 0% (0-3) Neutrophils # (Auto) 6.4x10^3uL (1.8-7.7) 18.9x10^3uL (1.8-7.7) Lymphocytes # (Auto) 2.9x10^3/uL (1.0-4.8) 1.9x10^3/uL (1.0-4.8) Monocytes # (Auto) 0.6x10^3/uL (0.0-1.1) 0.6x10^3/uL (0.0-1.1) Eosinophils # (Auto) 0.2x10^3/uL (0.0-0.7) 0.0x10^3/uL (0.0-0.7) Basophils # (Auto) 0.0x10^3/uL (0.0-0.2) 0.0x10^3/uL (0.0-0.2) Sodium Level 137mmol/L (136-145) 139mmol/L (136-145) Potassium Level 4.2mmol/L (3.5-5.1) 4.4mmol/L (3.5-5.1) Chloride Level 104mmol/L (98-107) 105mmol/L (98-107) Carbon Dioxide Level 27mmol/L (21-32) 23mmol/L (21-32) Anion Gap 6 (6-14) 11 (6-14) Blood Urea Nitrogen 13mg/dL (8-26) 15mg/dL (8-26) Creatinine 0.9mg/dL (0.7-1.3) 0.9mg/dL (0.7-1.3) Estimated GFR (Cockcroft-Gault) 96.0 96.0 Glucose Level 86mg/dL (70-99) 128mg/dL (70-99) Calcium Level 9.1mg/dL (8.5-10.1) 8.8mg/dL (8.5-10.1) Segmented Neutrophils % 94% (35-66) Lymphocytes % 4% (24-48) Monocytes % 2% (0-10) Platelet Estimate Adequate (ADEQUATE) Laboratory Tests Test 02/12/17 05:30 White Blood Count 21.4x10^3/uL (4.0-11.0) Red Blood Count 4.54x10^6/uL (4.30-5.70) Hemoglobin 13.3g/dL (13.0-17.5) Hematocrit 39.3% (39.0-53.0) Mean Corpuscular Volume 87fL (79-100) Mean Corpuscular Hemoglobin 29pg (25-35) Mean Corpuscular Hemoglobin Concent 34g/dL (31-37) Red Cell Distribution Width 13.9% (11.5-14.5) Platelet Count 332x10^3/uL (140-400) Neutrophils (%) (Auto) 88% (31-73) Lymphocytes (%) (Auto) 9% (24-48) Monocytes (%) (Auto) 3% (0-9) Eosinophils (%) (Auto) 0% (0-3) Basophils (%) (Auto) 0% (0-3) Neutrophils # (Auto) 18.9x10^3uL (1.8-7.7) Lymphocytes # (Auto) 1.9x10^3/uL (1.0-4.8) Monocytes # (Auto) 0.6x10^3/uL (0.0-1.1) Eosinophils # (Auto) 0.0x10^3/uL (0.0-0.7) Basophils # (Auto) 0.0x10^3/uL (0.0-0.2) Segmented Neutrophils % 94% (35-66) Lymphocytes % 4% (24-48) Monocytes % 2% (0-10) Platelet Estimate Adequate (ADEQUATE) Sodium Level 139mmol/L (136-145) Potassium Level 4.4mmol/L (3.5-5.1) Chloride Level 105mmol/L (98-107) Carbon Dioxide Level 23mmol/L (21-32) Anion Gap 11 (6-14) Blood Urea Nitrogen 15mg/dL (8-26) Creatinine 0.9mg/dL (0.7-1.3) Estimated GFR (Cockcroft-Gault) 96.0 Glucose Level 128mg/dL (70-99) Calcium Level 8.8mg/dL (8.5-10.1) Microbiology 02/10/17 Urine Culture - Preliminary, Resulted 02/10/17 Urine Culture Result 1 (KECIA) - Preliminary, Resulted Medications Current Medications Fentanyl Citrate (Fentanyl 2ml Vial) 50 mcg PRN Q15MIN PRN IV PAIN GREATER THAN 3/10 Last administered on 02/11/17 10:22; Start 02/10/17 at 17:15; Stop 02/11 at 17:14; Status DC Ketorolac Tromethamine (Toradol) 15 mg 1X ONCE IV Last administered on 17:45; Start 02/10/17 at 17:15; Stop 02/10/17 at 17:16; Status DC Ondansetron HCl (Zofran) 4 mg PRN Q8HRS PRN IV NAUSEA/VOMITING; Start 02/10/17 at 17:45; Stop 02/11/17 at 17:44; Status DC Fentanyl Citrate (Fentanyl 2ml Vial) 50 mcg PRN Q2HR PRN IV PAIN Last administered on 02/11/17 16:51; Start 02/10/17 at 17:45; Stop 02/11/17 at 17:44; Status DC Acetaminophen 650 mg 650 mg PRN Q4HRS PRN PO FEVER; Start 02/10/17 at 17:45; Stop 02/11/17 at 17:44; Status DC Sodium Chloride (Iv Sodium Chloride 0.9% 1000ml Bag) 1,000 ml @ 75 mls/hr [id number] IV Last administered on 02/12/17 07:54; Start 02/10/17 at 20:30 Lidocaine HCl (Glydo (Lidocaine) Jelly) 6 pau STK-MED ONCE .ROUTE Last administered on 02/11/17 15:18; Start 02/11/17 at 07:22; Stop 02/11/17 at 07:23; Status DC Iohexol (Omnipaque 300 Mg/ml) 50 ml STK-MED ONCE .ROUTE Last administered on 14:55; Start 02/11/17 at 07:22; Stop 02/11/17 at 07:23; Status DC Lidocaine HCl (Glydo (Lidocaine) Jelly) 6 pau STK-MED ONCE .ROUTE Last administered on 02/11/17 15:18; Start 02/11/17 at 07:24; Stop 02/11/17 at 07:25; Status DC Fentanyl Citrate (Fentanyl 2ml Vial) 50 mcg PRN Q5MIN PRN IV Acute Pain; Start 02/11/17 at 10:45; Stop 02/12/17 at 10:44; Status DC Morphine Sulfate 4 mg PRN Q10MIN PRN IV Moderate Pain; Start 02/11/17 at 10:45; Stop 02/12/17 at 10:44; Status DC Hydromorphone HCl (Dilaudid) 0.4 mg PRN Q10MIN PRN IV Moderate to severe pain; Start 02/11/17 at 10:45; Stop 02/12/17 at 10:44; Status DC Meperidine HCl (Demerol) 12.5 mg PRN Q5MIN PRN IV SHIVERING; Start 02/11/17 at 10:45; Stop 02/12/17 at 10:44; Status DC Prochlorperazine Edisylate (Compazine) 5 mg PRN Q6HRS PRN IV Nausea/Vomiting, 1st Choice; Start 02/11/17 at 10:45; Stop 02/12/17 at 10:44; Status DC Diphenhydramine HCl (Benadryl) 12.5 mg PRN Q2HR PRN IV ITCHING; Start 02/11/17 at 10:45; Stop 02/12/17 at 10:44; Status DC Midazolam HCl (Versed) 2 mg PRN 1X PRN IV PRIOR TO PROCEDURE; Start 02/11/17 at 10:45; Stop 02/12/17 at 10:44; Status DC Midazolam HCl (Versed) 1 mg PRN 1X PRN IV PRIOR TO PROCEDURE; Start 02/11/17 at 10:45; Stop 02/12/17 at 10:44; Status DC Fentanyl Citrate (Fentanyl 2ml Vial) 25 mcg PRN Q5MIN PRN IV X 2 DOSES FOR PAIN ; Start 02/11/17 at 10:45; Stop 02/12/17 at 10:44; Status DC Fentanyl Citrate 50 mcg 50 mcg PRN Q5MIN PRN IV X 2 DOSES FOR PAIN; Start at 10:45; Stop 02/12/17 at 10:44; Status DC Lactated Ringer's (Iv Lactated Ringers) 1,000 ml @ 125 mls/hr Q8H IV Last administered on 02/11/17t 12:41; Start 02/11/17 at 10:41; Stop 02/11/17 at 22:40; Status DC Lidocaine HCl 2 ml 2 ml 1X PRN PRN ID IV START; Start 02/11/17 at 10:45; Stop at 10:44; Status DC Cefazolin Sodium/ Dextrose 50 ml @ As Directed STK-MED ONCE IV ; Start 02/11/17 at 12:32; Stop 02/11/17 at 12:33; Status DC Cefazolin Sodium/ Dextrose 50 ml @ 100 mls/hr 1X ONCE IV Last administered on 02/11/17t 14:03; Start 02/11/17 at 12:45; Stop 02/11/17 at 13:14; Status DC Propofol (Diprivan) 20 ml @ As Directed STK-MED ONCE IV ; Start 02/11/17 at 13:45 ; Stop 02/11/17 at 13:46; Status DC Midazolam HCl (Versed) 2 mg STK-MED ONCE .ROUTE ; Start 02/11/17 at 13:46; Stop 02/11/17 at 13:47; Status DC Fentanyl Citrate (Fentanyl 2ml Vial) 100 mcg STK-MED ONCE .ROUTE ; Start at 13:46; Stop 02/11/17 at 13:47; Status DC Lidocaine HCl (Xylocaine-Mpf 1% Vial) 5 ml STK-MED ONCE .ROUTE ; Start 02/11/17 at 13:46; Stop 02/11/17 at 13:47; Status DC Dexamethasone Sodium Phosphate (Decadron) 20 mg STK-MED ONCE .ROUTE ; Start 02/11 at 13:50; Stop 02/11/17 at 13:51; Status DC Ondansetron HCl (Zofran) 4 mg STK-MED ONCE .ROUTE ; Start 02/11/17 at 13:50; Stop 02/11/17 at 13:51; Status DC Acetaminophen (Tylenol) 650 mg PRN Q6HRS PRN PO FEVER; Start 02/11/17 at 14:30 Ondansetron HCl (Zofran) 4 mg PRN Q6HRS PRN IV NAUSEA/VOMITING; Start 02/11/17 at 14:30; Stop 02/12/17 at 08:47; Status DC Phenylephrine HCl 1 mg STK-MED ONCE IV ; Start 02/11/17 at 14:56; Stop 02/11/17 at 14:57; Status DC Fentanyl Citrate (Fentanyl 2ml Vial) 100 mcg STK-MED ONCE .ROUTE ; Start at 15:02; Stop 02/11/17 at 15:03; Status DC Sevoflurane (Ultane) 60 ml STK-MED ONCE IH ; Start 02/11/17 at 15:22; Stop at 15:23; Status DC Oxycodone/ Acetaminophen (Percocet 7.5/ 325) 1 tab PRN Q6HRS PRN PO PAIN Last administered on 02/12/17 07:56; Start 02/11/17 at 18:00 Fentanyl Citrate 25 mcg 25 mcg PRN Q2HR PRN IV PAIN Last administered on 11:19; Start 02/11/17 at 20:15; Stop 02/12/17 at 20:10 Levofloxacin/ Dextrose (LEVAQUIN 500mg PREMIX) 100 ml @ 100 mls/hr Q24H IV Last administered on 02/12/17 09:37; Start 02/12/17 at 09:00; Stop 02/12/17 at 10: 44; Status DC Phenazopyridine HCl (Pyridium) 200 mg PRN TID PRN PO URINARY PAIN Last administered on 02/12/17 11:23; Start 02/12/17 at 08:45 Tamsulosin HCl (Flomax) 0.4 mg DAILY PO Last administered on 02/12/17 09:37; Start 02/12/17 at 09:30 Albuterol Sulfate 2.5 mg 2.5 mg 1X ONCE NEB Last administered on 02/12/17 10: 30; Start 02/12/17 at 10:30; Stop 02/12/17 at 10:31; Status DC Ceftriaxone Sodium/Sodium Chloride (Rocephin/Iv Sodium Chloride 0.9% 50ml) 50 ml @ 100 mls/hr Q24H IV Last administered on 02/12/17 11:28; Start 02/12/17 at 11:00 Albuterol Sulfate (Ventolin Neb Soln) 2.5 mg PRN Q4HRS PRN NEB SHORTNESS OF BREATH; Start 02/12/17 at 10:45 Methylprednisolone Sodium Succinate (Solu-Medrol 125mg Vial) 125 mg 1X ONCE IV Last administered on 02/12/17 11:23; Start 02/12/17 at 11:00; Stop 02/12/17 at 11:01; Status DC Senna/Docusate Sodium (Senna Plus) 1 tab BID PO Last administered on 02/12/17 11:23; Start 02/12/17 at 11:00 Docusate Sodium (Colace) 100 mg BID PO Last administered on 02/12/17 11:23; Start 02/12/17 at 11:00 Magnesium Hydroxide (Milk Of Magnesia) 2,400 mg PRN Q12HR PRN PO CONSTIPATION; Start 02/12/17 at 11:00 Active Scripts Active Percocet 7.5-325 Mg Tablet (Oxycodone/Acetaminophen) 1 Each Tablet 1 Tab PO Q6HRS PRN Flomax (Tamsulosin Hcl) 0.4 Mg Cap.er.24h 0.4 Mg PO DAILY Hydrocodone-Apap 5-325 (Hydrocodone Bit/Acetaminophen) 1 Each Tablet 1 Tab PO PRN Q4HRS PRN Vitals/I & O Vital Sign - Last 24 Hours 02/11/17 02/11/17 02/11/17 02/11/17 15:00 15:35 15:35 15:50 Temp 98.1 98.1 Pulse 80 88 70 Resp 18 18 18 B/P 122/79 104/59 115/58 Pulse Ox 95 99 99 O2 Delivery Room Air Mask Simple Mask Simple Mask O2 Flow Rate 10 10 10 02/11/17 02/11/17 02/11/17 02/11/17 16:05 16:20 16:30 16:45 Temp 98.1 98.1 Pulse 74 75 77 82 Resp 18 18 18 B/P 118/66 118/66 124/77 123/88 Pulse Ox 95 96 94 95 O2 Delivery Room Air Room Air Room Air Room Air 02/11/17 02/11/17 02/11/17 02/11/17 17:15 19:00 20:00 20:36 Temp 98.6 98.6 Pulse 91 81 Resp 18 20 B/P 123/89 121/71 Pulse Ox 94 95 95 O2 Delivery Room Air Room Air Room Air Room Air O2 Flow Rate 10.0 02/11/17 02/11/17 02/11/17 02/12/17 23:08 23:09 23:38 00:13 Temp 98.2 98.2 Pulse 85 Resp 20 B/P 141/ Pulse Ox 95 97 97 97 O2 Delivery Room Air Room Air Room Air O2 Flow Rate 10.0 10.0 10.0 02/12/17 02/12/17 02/12/17 02/12/17 01:13 01:35 05:02 07:00 Temp 97.8 97.8 Pulse 66 Resp 20 B/P 132/71 Pulse Ox 97 97 97 97 O2 Delivery Room Air Room Air Room Air O2 Flow Rate 10.0 10.0 10.0 02/12/17 02/12/17 02/12/17 02/12/17 07:56 07:56 08:00 09:00 O2 Delivery Room Air Room Air Room Air Room Air 02/12/17 02/12/17 02/12/17 02/12/17 10:37 10:37 11:19 12:00 Temp 97.8 97.8 Pulse 102 Resp 22 B/P 144/96 Pulse Ox 91 91 O2 Delivery Room Air Room Air Room Air Room Air Intake and Output 02/11/17 02/11/17 02/12/17 15:00 23:00 07:00 Intake Total 50 ml 1800 ml 1250 ml Output Total 450 ml 0 ml Balance -400 ml 1800 ml 1250 ml BRIGETTE BURGOS MD February 12, 2017 13:26
[2017-02-12] MEDS ORDERED: ONDANSETRON PF 4 MG/2 ML VIAL. IV PRN (13:30)
[2017-02-12 15:02] VITALS: BP 142/94
[2017-02-12 19:00] VITALS: BP 128/70
[2017-02-12 23:00] VITALS: BP 138/72
[2017-02-13] MEDS: oxyCODONE/APAP 7.5/325 1 TAB TABLET PO PRN ×6 (00:39→21:19)
[2017-02-13 02:44] VITALS: BP 145/79
[2017-02-13 07:00] VITALS: BP 144/84
[2017-02-13 07:30] LABS: CREATININE 0.9 mg/dL (0.7-1.3); POTASSIUM 4.2 mmol/L (3.5-5.1)
[2017-02-13 08:09] LABS: BASO % 0 % (0-3); EOS % 0 % (0-3); HEMATOCRIT 36.4 % (39.0-53.0); HEMOGLOBIN 11.9 g/dL (13.0-17.5); LYMPH # 2.9 x10^3/uL (1.0-4.8); LYMPH % 10 % (24-48); MEAN CORPUSCULAR HEMOGLOBIN 29 pg (25-35); MEAN CORPUSCULAR HGB CONC 33 g/dL (31-37); MEAN CORPUSCULAR VOLUME 88 fL (79-100); MONO % 4 % (0-9); NEUT % 85 % (31-73); PLATELET COUNT 317 x10^3/uL (140-400); RED BLOOD COUNT 4.14 x10^6/uL (4.30-5.70); RED CELL DISTRIBUTION WIDTH 14.4 % (11.5-14.5); WHITE BLOOD COUNT 28.3 x10^3/uL (4.0-11.0)
[2017-02-13] MEDS: SENNOSIDES/DOCUSATE 8.6/50MG TABLET. PO SCH ×2 (08:30→21:00)
[2017-02-13] MEDS: DOCUSATE SODIUM 100 MG CAPSULE. PO SCH ×2 (08:30→21:00)
[2017-02-13] MEDS: TAMSULOSIN 0.4 MG CAP.ER.24H. PO SCH (08:30)
[2017-02-13] MEDS: PHENAZOPYRIDINE 200 MG TABLET. PO PRN ×3 (08:30→21:18)
--- NOTE | 2017-02-13 08:31 | PDOC ---
PROGRESS NOTES Subjective Subjective Pt. feeling better today Objective Objective Vital Signs Date Time Temp Pulse Resp B/P (MAP) Pulse Ox O2 Delivery O2 Flow Rate FiO2 02/13/17 07:00 98.1 64 14 144/84 (104) 97 Room Air 98.1 02/13/17 01:36 10.0 Intake and Output 02/13/17 07:00 Intake Total 1350 ml Balance 1350 ml Intake Oral 1350 ml # Voids 3 Physical Exam Physical Exam Adverse reaction to Levaquin yesterday Less tender left flank and abd today WBC elevated at 28,000 today Plan Plan of Care Problems Medical Problems CT abd and pelvis Consult ID and Hematology regarding leukocytosis (1) Ureteral colic Status: Acute Comment Review of Relevant I have reviewed the following items haily (where applicable) has been applied. Labs Laboratory Tests Test 02/12/17 05:30 02/13/17 05:45 White Blood Count 21.4 x10^3/uL (4.0-11.0) 28.3 x10^3/uL (4.0-11.0) Red Blood Count 4.54 x10^6/uL (4.30-5.70) 4.14 x10^6/uL (4.30-5.70) Hemoglobin 13.3 g/dL (13.0-17.5) 11.9 g/dL (13.0-17.5) Hematocrit 39.3 % (39.0-53.0) 36.4 % (39.0-53.0) Mean Corpuscular Volume 87 fL (79-100) 88 fL (79-100) Mean Corpuscular Hemoglobin 29 pg (25-35) 29 pg (25-35) Mean Corpuscular Hemoglobin Concent 34 g/dL (31-37) 33 g/dL (31-37) Red Cell Distribution Width 13.9 % (11.5-14.5) 14.4 % (11.5-14.5) Platelet Count 332 x10^3/uL (140-400) 317 x10^3/uL (140-400) Neutrophils (%) (Auto) 88 % (31-73) 85 % (31-73) Lymphocytes (%) (Auto) 9 % (24-48) 10 % (24-48) Monocytes (%) (Auto) 3 % (0-9) 4 % (0-9) Eosinophils (%) (Auto) 0 % (0-3) 0 % (0-3) Basophils (%) (Auto) 0 % (0-3) 0 % (0-3) Neutrophils # (Auto) 18.9 x10^3uL (1.8-7.7) 24.0 x10^3uL (1.8-7.7) Lymphocytes # (Auto) 1.9 x10^3/uL (1.0-4.8) 2.9 x10^3/uL (1.0-4.8) Monocytes # (Auto) 0.6 x10^3/uL (0.0-1.1) 1.2 x10^3/uL (0.0-1.1) Eosinophils # (Auto) 0.0 x10^3/uL (0.0-0.7) 0.0 x10^3/uL (0.0-0.7) Basophils # (Auto) 0.0 x10^3/uL (0.0-0.2) 0.0 x10^3/uL (0.0-0.2) Segmented Neutrophils % 94 % (35-66) Lymphocytes % 4 % (24-48) Monocytes % 2 % (0-10) Platelet Estimate Adequate (ADEQUATE) Sodium Level 139 mmol/L (136-145) 143 mmol/L (136-145) Potassium Level 4.4 mmol/L (3.5-5.1) 4.2 mmol/L (3.5-5.1) Chloride Level 105 mmol/L (98-107) 106 mmol/L (98-107) Carbon Dioxide Level 23 mmol/L (21-32) 28 mmol/L (21-32) Anion Gap 11 (6-14) 9 (6-14) Blood Urea Nitrogen 15 mg/dL (8-26) 14 mg/dL (8-26) Creatinine 0.9 mg/dL (0.7-1.3) 0.9 mg/dL (0.7-1.3) Estimated GFR (Cockcroft-Gault) 96.0 96.0 Glucose Level 128 mg/dL (70-99) 110 mg/dL (70-99) Calcium Level 8.8 mg/dL (8.5-10.1) 9.0 mg/dL (8.5-10.1) Laboratory Tests Test 02/13/17 05:45 White Blood Count 28.3 x10^3/uL (4.0-11.0) Red Blood Count 4.14 x10^6/uL (4.30-5.70) Hemoglobin 11.9 g/dL (13.0-17.5) Hematocrit 36.4 % (39.0-53.0) Mean Corpuscular Volume 88 fL (79-100) Mean Corpuscular Hemoglobin 29 pg (25-35) Mean Corpuscular Hemoglobin Concent 33 g/dL (31-37) Red Cell Distribution Width 14.4 % (11.5-14.5) Platelet Count 317 x10^3/uL (140-400) Neutrophils (%) (Auto) 85 % (31-73) Lymphocytes (%) (Auto) 10 % (24-48) Monocytes (%) (Auto) 4 % (0-9) Eosinophils (%) (Auto) 0 % (0-3) Basophils (%) (Auto) 0 % (0-3) Neutrophils # (Auto) 24.0 x10^3uL (1.8-7.7) Lymphocytes # (Auto) 2.9 x10^3/uL (1.0-4.8) Monocytes # (Auto) 1.2 x10^3/uL (0.0-1.1) Eosinophils # (Auto) 0.0 x10^3/uL (0.0-0.7) Basophils # (Auto) 0.0 x10^3/uL (0.0-0.2) Sodium Level 143 mmol/L (136-145) Potassium Level 4.2 mmol/L (3.5-5.1) Chloride Level 106 mmol/L (98-107) Carbon Dioxide Level 28 mmol/L (21-32) Anion Gap 9 (6-14) Blood Urea Nitrogen 14 mg/dL (8-26) Creatinine 0.9 mg/dL (0.7-1.3) Estimated GFR (Cockcroft-Gault) 96.0 Glucose Level 110 mg/dL (70-99) Calcium Level 9.0 mg/dL (8.5-10.1) Microbiology 02/10/17 Urine Culture - Final, Complete 02/10/17 Urine Culture Result 1 (KECIA) - Final, Complete Medications Current Medications Fentanyl Citrate (Fentanyl 2ml Vial) 50 mcg PRN Q15MIN PRN IV PAIN GREATER THAN 3/10 Last administered on 02/11/17 10:22; Start 02/10/17 at 17:15; Stop 02/11 at 17:14; Status DC Ketorolac Tromethamine (Toradol) 15 mg 1X ONCE IV Last administered on 17:45; Start 02/10/17 at 17:15; Stop 02/10/17 at 17:16; Status DC Ondansetron HCl (Zofran) 4 mg PRN Q8HRS PRN IV NAUSEA/VOMITING; Start 02/10/17 at 17:45; Stop 02/11/17 at 17:44; Status DC Fentanyl Citrate (Fentanyl 2ml Vial) 50 mcg PRN Q2HR PRN IV PAIN Last administered on 02/11/17 16:51; Start 02/10/17 at 17:45; Stop 02/11/17 at 17:44; Status DC Acetaminophen (Tylenol) 650 mg PRN Q4HRS PRN PO FEVER; Start 02/10/17 at 17:45; Stop 02/11/17 at 17:44; Status DC Sodium Chloride 1,000 ml @ 75 mls/hr [id number] IV Last administered on 02/12/17 07:54; Start 02/10/17 at 20:30; Stop 02/12/17 at 19:24; Status DC Lidocaine HCl (Glydo (Lidocaine) Jelly) 6 pau STK-MED ONCE .ROUTE Last administered on 02/11/17 15:18; Start 02/11/17 at 07:22; Stop 02/11/17 at 07:23; Status DC Iohexol (Omnipaque 300 Mg/ml) 50 ml STK-MED ONCE .ROUTE Last administered on 14:55; Start 02/11/17 at 07:22; Stop 02/11/17 at 07:23; Status DC Lidocaine HCl (Glydo (Lidocaine) Jelly) 6 pau STK-MED ONCE .ROUTE Last administered on 02/11/17 15:18; Start 02/11/17 at 07:24; Stop 02/11/17 at 07:25; Status DC Fentanyl Citrate (Fentanyl 2ml Vial) 50 mcg PRN Q5MIN PRN IV Acute Pain; Start 02/11/17 at 10:45; Stop 02/12/17 at 10:44; Status DC Morphine Sulfate 4 mg PRN Q10MIN PRN IV Moderate Pain; Start 02/11/17 at 10:45; Stop 02/12/17 at 10:44; Status DC Hydromorphone HCl (Dilaudid) 0.4 mg PRN Q10MIN PRN IV Moderate to severe pain; Start 02/11/17 at 10:45; Stop 02/12/17 at 10:44; Status DC Meperidine HCl (Demerol) 12.5 mg PRN Q5MIN PRN IV SHIVERING; Start 02/11/17 at 10:45; Stop 02/12/17 at 10:44; Status DC Prochlorperazine Edisylate (Compazine) 5 mg PRN Q6HRS PRN IV Nausea/Vomiting, 1st Choice; Start 02/11/17 at 10:45; Stop 02/12/17 at 10:44; Status DC Diphenhydramine HCl (Benadryl) 12.5 mg PRN Q2HR PRN IV ITCHING; Start 02/11/17 at 10:45; Stop 02/12/17 at 10:44; Status DC Midazolam HCl (Versed) 2 mg PRN 1X PRN IV PRIOR TO PROCEDURE; Start 02/11/17 at 10:45; Stop 02/12/17 at 10:44; Status DC Midazolam HCl (Versed) 1 mg PRN 1X PRN IV PRIOR TO PROCEDURE; Start 02/11/17 at 10:45; Stop 02/12/17 at 10:44; Status DC Fentanyl Citrate (Fentanyl 2ml Vial) 25 mcg PRN Q5MIN PRN IV X 2 DOSES FOR PAIN ; Start 02/11/17 at 10:45; Stop 02/12/17 at 10:44; Status DC Fentanyl Citrate (Fentanyl 2ml Vial) 50 mcg PRN Q5MIN PRN IV X 2 DOSES FOR PAIN ; Start 02/11/17 at 10:45; Stop 02/12/17 at 10:44; Status DC Lactated Ringer's 1,000 ml @ 125 mls/hr Q8H IV Last administered on 02/11/17t 12:41; Start 02/11/17 at 10:41; Stop 02/11/17 at 22:40; Status DC Lidocaine HCl 2 ml 1X PRN PRN ID IV START; Start 02/11/17 at 10:45; Stop at 10:44; Status DC Cefazolin Sodium/ Dextrose 50 ml @ As Directed STK-MED ONCE IV ; Start 02/11/17 at 12:32; Stop 02/11/17 at 12:33; Status DC Cefazolin Sodium/ Dextrose 50 ml @ 100 mls/hr 1X ONCE IV Last administered on 02/11/17t 14:03; Start 02/11/17 at 12:45; Stop 02/11/17 at 13:14; Status DC Propofol 20 ml @ As Directed STK-MED ONCE IV ; Start 02/11/17 at 13:45; Stop 02/11 at 13:46; Status DC Midazolam HCl (Versed) 2 mg STK-MED ONCE .ROUTE ; Start 02/11/17 at 13:46; Stop 02/11/17 at 13:47; Status DC Fentanyl Citrate (Fentanyl 2ml Vial) 100 mcg STK-MED ONCE .ROUTE ; Start at 13:46; Stop 02/11/17 at 13:47; Status DC Lidocaine HCl (Xylocaine-Mpf 1% Vial) 5 ml STK-MED ONCE .ROUTE ; Start 02/11/17 at 13:46; Stop 02/11/17 at 13:47; Status DC Dexamethasone Sodium Phosphate (Decadron) 20 mg STK-MED ONCE .ROUTE ; Start 02/11 at 13:50; Stop 02/11/17 at 13:51; Status DC Ondansetron HCl (Zofran) 4 mg STK-MED ONCE .ROUTE ; Start 02/11/17 at 13:50; Stop 02/11/17 at 13:51; Status DC Acetaminophen (Tylenol) 650 mg PRN Q6HRS PRN PO FEVER; Start 02/11/17 at 14:30 Ondansetron HCl (Zofran) 4 mg PRN Q6HRS PRN IV NAUSEA/VOMITING; Start 02/11/17 at 14:30; Stop 02/12/17 at 08:47; Status DC Phenylephrine HCl 1 mg STK-MED ONCE IV ; Start 02/11/17 at 14:56; Stop 02/11/17 at 14:57; Status DC Fentanyl Citrate (Fentanyl 2ml Vial) 100 mcg STK-MED ONCE .ROUTE ; Start at 15:02; Stop 02/11/17 at 15:03; Status DC Sevoflurane (Ultane) 60 ml STK-MED ONCE IH ; Start 02/11/17 at 15:22; Stop at 15:23; Status DC Oxycodone/ Acetaminophen (Percocet 7.5/ 325) 1 tab PRN Q6HRS PRN PO PAIN Last administered on 02/12/17 15:15; Start 02/11/17 at 18:00; Stop 02/12/17 at 19:24; Status DC Fentanyl Citrate (Fentanyl 2ml Vial) 25 mcg PRN Q2HR PRN IV PAIN Last administered on 02/12/17 13:35; Start 02/11/17 at 20:15; Stop 02/12/17 at 20:10; Status DC Levofloxacin/ Dextrose 100 ml @ 100 mls/hr Q24H IV Last administered on 09:37; Start 02/12/17 at 09:00; Stop 02/12/17 at 10:44; Status DC Phenazopyridine HCl (Pyridium) 200 mg PRN TID PRN PO URINARY PAIN Last administered on 02/12/17 20:20; Start 02/12/17 at 08:45 Tamsulosin HCl (Flomax) 0.4 mg DAILY PO Last administered on 02/12/17 09:37; Start 02/12/17 at 09:30 Albuterol Sulfate (Ventolin Neb Soln) 2.5 mg 1X ONCE NEB Last administered on 02/12/17 10:30; Start 02/12/17 at 10:30; Stop 02/12/17 at 10:31; Status DC Ceftriaxone Sodium 1 gm/ Sodium Chloride 50 ml @ 100 mls/hr Q24H IV Last administered on 02/12/17 11:28; Start 02/12/17 at 11:00 Albuterol Sulfate (Ventolin Neb Soln) 2.5 mg PRN Q4HRS PRN NEB SHORTNESS OF BREATH; Start 02/12/17 at 10:45 Methylprednisolone Sodium Succinate (Solu-Medrol 125mg Vial) 125 mg 1X ONCE IV Last administered on 02/12/17 11:23; Start 02/12/17 at 11:00; Stop 02/12/17 at 11:01; Status DC Senna/Docusate Sodium (Senna Plus) 1 tab BID PO Last administered on 02/12/17 20:16; Start 02/12/17 at 11:00 Docusate Sodium (Colace) 100 mg BID PO Last administered on 02/12/17 20:15; Start 02/12/17 at 11:00 Magnesium Hydroxide (Milk Of Magnesia) 2,400 mg PRN Q12HR PRN PO CONSTIPATION; Start 02/12/17 at 11:00 Ondansetron HCl (Zofran) 4 mg PRN Q6HRS PRN IV NAUSEA/VOMITING; Start 02/12/17 at 13:30 Oxycodone/ Acetaminophen (Percocet 7.5/ 325) 1 tab PRN Q4HRS PRN PO PAIN Last administered on 02/13/17 00:39; Start 02/12/17 at 19:23 Active Scripts Active Percocet 7.5-325 Mg Tablet (Oxycodone/Acetaminophen) 1 Each Tablet 1 Tab PO Q6HRS PRN Flomax (Tamsulosin Hcl) 0.4 Mg Cap.er.24h 0.4 Mg PO DAILY Hydrocodone-Apap 5-325 (Hydrocodone Bit/Acetaminophen) 1 Each Tablet 1 Tab PO PRN Q4HRS PRN Vitals/I & O Vital Sign - Last 24 Hours 02/12/17 02/12/17 02/12/17 02/12/17 10:37 10:37 11:19 13:35 Temp 97.8 97.8 Pulse 102 Resp 22 B/P (MAP) 144/96 (112) Pulse Ox 91 91 O2 Delivery Room Air Room Air Room Air Room Air 02/12/17 02/12/17 02/12/17 02/12/17 14:10 15:02 15:15 16:15 Temp 97.8 97.8 Pulse 97 Resp 22 B/P (MAP) 142/94 (110) Pulse Ox 93 O2 Delivery Room Air Room Air Room Air Room Air 02/12/17 02/12/17 02/12/17 02/12/17 19:00 20:00 20:16 21:34 Temp 98.1 98.1 Pulse 86 Resp 20 18 18 B/P (MAP) 128/70 (89) Pulse Ox 95 95 O2 Delivery Room Air Room Air Room Air O2 Flow Rate 10.0 02/12/17 02/13/17 02/13/17 02/13/17 23:00 00:39 01:36 02:44 Temp 98.1 98.8 98.1 98.8 Pulse 81 93 Resp 20 18 20 B/P (MAP) 138/72 (94) 145/79 (101) Pulse Ox 96 96 95 O2 Delivery Room Air Room Air Room Air Room Air O2 Flow Rate 10.0 02/13/17 07:00 Temp 98.1 98.1 Pulse 64 Resp 14 B/P (MAP) 144/84 (104) Pulse Ox 97 O2 Delivery Room Air Intake and Output 02/12/17 02/12/17 02/13/17 15:00 23:00 07:00 Intake Total 500 ml 850 ml 0 ml Balance 500 ml 850 ml 0 ml CHICO TAYLOR MD February 13, 2017 08:31
--- NOTE | 2017-02-13 09:48 | RAD ---
Indication left ureteral stent placement. Follow-up. Noncontrast images through the abdomen and pelvis were obtained and are compared to an examination 2 weeks earlier. Note is made of the renal ultrasound examination 02/10/2017. There is some linear atelectasis at the lung bases left slightly greater than right. The liver and spleen appear unremarkable. The gallbladder is largely contracted but grossly normal. No adrenal pathology is seen. Known minute right renal calculi are reproduced. Relative to the previous exam a left ureteral stent has been placed. It extends from the renal pelvis to the urinary bladder. A small amount of air is noted in the urinary bladder and in the ureter which is likely a function of instrumentation. There is no hydronephrosis hydroureter or definite calcification along the course of the ureter. An acute or unexpected finding in the abdomen is not seen. The pelvis appears unremarkable. IMPRESSION: Interval placement of left ureteral stent. No hydronephrosis hydroureter or unexpected finding is seen. Known minute right renal calculi are reproduced. PQRS Compliance Statement: One or more of the following individualized dose reduction techniques were utilized for this examination: 1. Automated exposure control 2. Adjustment of the mA and/or kV according to patient size 3. Use of iterative reconstruction technique
--- NOTE | 2017-02-13 09:51 | PDOC ---
Infectious Disease Note Vital Sign Vital Signs Vital Signs Date Time Temp Pulse Resp B/P (MAP) Pulse Ox O2 Delivery O2 Flow Rate FiO2 02/13/17 08:49 20 97 Room Air 02/13/17 07:00 98.1 64 144/84 (104) 98.1 02/13/17 01:36 10.0 Labs Lab Laboratory Tests Test 02/13/17 05:45 White Blood Count 28.3 x10^3/uL (4.0-11.0) Red Blood Count 4.14 x10^6/uL (4.30-5.70) Hemoglobin 11.9 g/dL (13.0-17.5) Hematocrit 36.4 % (39.0-53.0) Mean Corpuscular Volume 88 fL (79-100) Mean Corpuscular Hemoglobin 29 pg (25-35) Mean Corpuscular Hemoglobin Concent 33 g/dL (31-37) Red Cell Distribution Width 14.4 % (11.5-14.5) Platelet Count 317 x10^3/uL (140-400) Neutrophils (%) (Auto) 85 % (31-73) Lymphocytes (%) (Auto) 10 % (24-48) Monocytes (%) (Auto) 4 % (0-9) Eosinophils (%) (Auto) 0 % (0-3) Basophils (%) (Auto) 0 % (0-3) Neutrophils # (Auto) 24.0 x10^3uL (1.8-7.7) Lymphocytes # (Auto) 2.9 x10^3/uL (1.0-4.8) Monocytes # (Auto) 1.2 x10^3/uL (0.0-1.1) Eosinophils # (Auto) 0.0 x10^3/uL (0.0-0.7) Basophils # (Auto) 0.0 x10^3/uL (0.0-0.2) Sodium Level 143 mmol/L (136-145) Potassium Level 4.2 mmol/L (3.5-5.1) Chloride Level 106 mmol/L (98-107) Carbon Dioxide Level 28 mmol/L (21-32) Anion Gap 9 (6-14) Blood Urea Nitrogen 14 mg/dL (8-26) Creatinine 0.9 mg/dL (0.7-1.3) Estimated GFR (Cockcroft-Gault) 96.0 Glucose Level 110 mg/dL (70-99) Calcium Level 9.0 mg/dL (8.5-10.1) Objective Assessment Leukocytosis likely sec to steroids and reactive from procedure Ureteral stone s/p stenting Allergic reaction to levaquin Plan Plan of Care change rocephin to po vantin check ct, if no abscess, then pt can be d/c ed d/w AYLEEN Jones MD February 13, 2017 09:51
[2017-02-13 11:00] VITALS: BP 136/80
[2017-02-13] MEDS: CEFPODOXIME PROXETIL 100 MG TABLET. PO SCH ×2 (11:13→21:18)
--- NOTE | 2017-02-13 12:09 | PDOC ---
PROGRESS NOTES Chief Complaint Chief Complaint 1. left flank pain with left ureteral stone 5mm post cystoscopy and lisotripsy and left ureteral stent done on 02/11 2. tobaccoism 3. skin rash 11/14 levaquin possibly 4. Leukocytosis post op, steroid plan: fu with uro, id cystoscopy and lisotripsy and left ureteral stent done on 02/11 ivf, flomax, pyeridium ct repeated not remarkable pain control dc levaquin, on vantin as per id now dc tmr if wbc better History of Present Illness History of Present Illness left flank pain much better high WBC face, neck and upper chest mild diffuse redness 02/12, could 2/ levaquin , not itchy, but feels itchy eyes, with mild sob Vitals Vitals Vital Signs Date Time Temp Pulse Resp B/P (MAP) Pulse Ox O2 Delivery O2 Flow Rate FiO2 02/13/17 11:00 98.4 66 14 136/80 (98) 98 Room Air 98.4 02/13/17 01:36 10.0 Physical Exam Physical Exam face, neck and upper chest mild diffuse redness today, could 11/14 levaquin General: Alert, Oriented X3, Cooperative Heart: Regular rate, Normal S1, Normal S2 Lungs: Clear Abdomen: Normal bowel sounds, Soft, Other (left flank tenderness) Labs LABS Laboratory Tests Test 02/13/17 05:45 White Blood Count 28.3 x10^3/uL (4.0-11.0) Red Blood Count 4.14 x10^6/uL (4.30-5.70) Hemoglobin 11.9 g/dL (13.0-17.5) Hematocrit 36.4 % (39.0-53.0) Mean Corpuscular Volume 88 fL (79-100) Mean Corpuscular Hemoglobin 29 pg (25-35) Mean Corpuscular Hemoglobin Concent 33 g/dL (31-37) Red Cell Distribution Width 14.4 % (11.5-14.5) Platelet Count 317 x10^3/uL (140-400) Neutrophils (%) (Auto) 85 % (31-73) Lymphocytes (%) (Auto) 10 % (24-48) Monocytes (%) (Auto) 4 % (0-9) Eosinophils (%) (Auto) 0 % (0-3) Basophils (%) (Auto) 0 % (0-3) Neutrophils # (Auto) 24.0 x10^3uL (1.8-7.7) Lymphocytes # (Auto) 2.9 x10^3/uL (1.0-4.8) Monocytes # (Auto) 1.2 x10^3/uL (0.0-1.1) Eosinophils # (Auto) 0.0 x10^3/uL (0.0-0.7) Basophils # (Auto) 0.0 x10^3/uL (0.0-0.2) Sodium Level 143 mmol/L (136-145) Potassium Level 4.2 mmol/L (3.5-5.1) Chloride Level 106 mmol/L (98-107) Carbon Dioxide Level 28 mmol/L (21-32) Anion Gap 9 (6-14) Blood Urea Nitrogen 14 mg/dL (8-26) Creatinine 0.9 mg/dL (0.7-1.3) Estimated GFR (Cockcroft-Gault) 96.0 Glucose Level 110 mg/dL (70-99) Calcium Level 9.0 mg/dL (8.5-10.1) Review of Systems Review of Systems no fever, chills, sob or chest pain Assessment and Plan Assessmemt and Plan Problems Medical Problems: (1) Ureteral colic Status: Acute Problems: Comment Review of Relevant I have reviewed the following items haily (where applicable) has been applied. Labs Laboratory Tests Test 02/12/17 05:30 02/13/17 05:45 White Blood Count 21.4 x10^3/uL (4.0-11.0) 28.3 x10^3/uL (4.0-11.0) Red Blood Count 4.54 x10^6/uL (4.30-5.70) 4.14 x10^6/uL (4.30-5.70) Hemoglobin 13.3 g/dL (13.0-17.5) 11.9 g/dL (13.0-17.5) Hematocrit 39.3 % (39.0-53.0) 36.4 % (39.0-53.0) Mean Corpuscular Volume 87 fL (79-100) 88 fL (79-100) Mean Corpuscular Hemoglobin 29 pg (25-35) 29 pg (25-35) Mean Corpuscular Hemoglobin Concent 34 g/dL (31-37) 33 g/dL (31-37) Red Cell Distribution Width 13.9 % (11.5-14.5) 14.4 % (11.5-14.5) Platelet Count 332 x10^3/uL (140-400) 317 x10^3/uL (140-400) Neutrophils (%) (Auto) 88 % (31-73) 85 % (31-73) Lymphocytes (%) (Auto) 9 % (24-48) 10 % (24-48) Monocytes (%) (Auto) 3 % (0-9) 4 % (0-9) Eosinophils (%) (Auto) 0 % (0-3) 0 % (0-3) Basophils (%) (Auto) 0 % (0-3) 0 % (0-3) Neutrophils # (Auto) 18.9 x10^3uL (1.8-7.7) 24.0 x10^3uL (1.8-7.7) Lymphocytes # (Auto) 1.9 x10^3/uL (1.0-4.8) 2.9 x10^3/uL (1.0-4.8) Monocytes # (Auto) 0.6 x10^3/uL (0.0-1.1) 1.2 x10^3/uL (0.0-1.1) Eosinophils # (Auto) 0.0 x10^3/uL (0.0-0.7) 0.0 x10^3/uL (0.0-0.7) Basophils # (Auto) 0.0 x10^3/uL (0.0-0.2) 0.0 x10^3/uL (0.0-0.2) Segmented Neutrophils % 94 % (35-66) Lymphocytes % 4 % (24-48) Monocytes % 2 % (0-10) Platelet Estimate Adequate (ADEQUATE) Sodium Level 139 mmol/L (136-145) 143 mmol/L (136-145) Potassium Level 4.4 mmol/L (3.5-5.1) 4.2 mmol/L (3.5-5.1) Chloride Level 105 mmol/L (98-107) 106 mmol/L (98-107) Carbon Dioxide Level 23 mmol/L (21-32) 28 mmol/L (21-32) Anion Gap 11 (6-14) 9 (6-14) Blood Urea Nitrogen 15 mg/dL (8-26) 14 mg/dL (8-26) Creatinine 0.9 mg/dL (0.7-1.3) 0.9 mg/dL (0.7-1.3) Estimated GFR (Cockcroft-Gault) 96.0 96.0 Glucose Level 128 mg/dL (70-99) 110 mg/dL (70-99) Calcium Level 8.8 mg/dL (8.5-10.1) 9.0 mg/dL (8.5-10.1) Laboratory Tests Test 02/13/17 05:45 White Blood Count 28.3 x10^3/uL (4.0-11.0) Red Blood Count 4.14 x10^6/uL (4.30-5.70) Hemoglobin 11.9 g/dL (13.0-17.5) Hematocrit 36.4 % (39.0-53.0) Mean Corpuscular Volume 88 fL (79-100) Mean Corpuscular Hemoglobin 29 pg (25-35) Mean Corpuscular Hemoglobin Concent 33 g/dL (31-37) Red Cell Distribution Width 14.4 % (11.5-14.5) Platelet Count 317 x10^3/uL (140-400) Neutrophils (%) (Auto) 85 % (31-73) Lymphocytes (%) (Auto) 10 % (24-48) Monocytes (%) (Auto) 4 % (0-9) Eosinophils (%) (Auto) 0 % (0-3) Basophils (%) (Auto) 0 % (0-3) Neutrophils # (Auto) 24.0 x10^3uL (1.8-7.7) Lymphocytes # (Auto) 2.9 x10^3/uL (1.0-4.8) Monocytes # (Auto) 1.2 x10^3/uL (0.0-1.1) Eosinophils # (Auto) 0.0 x10^3/uL (0.0-0.7) Basophils # (Auto) 0.0 x10^3/uL (0.0-0.2) Sodium Level 143 mmol/L (136-145) Potassium Level 4.2 mmol/L (3.5-5.1) Chloride Level 106 mmol/L (98-107) Carbon Dioxide Level 28 mmol/L (21-32) Anion Gap 9 (6-14) Blood Urea Nitrogen 14 mg/dL (8-26) Creatinine 0.9 mg/dL (0.7-1.3) Estimated GFR (Cockcroft-Gault) 96.0 Glucose Level 110 mg/dL (70-99) Calcium Level 9.0 mg/dL (8.5-10.1) Microbiology 02/10/17 Urine Culture - Final, Complete 02/10/17 Urine Culture Result 1 (KECIA) - Final, Complete Medications Current Medications Fentanyl Citrate (Fentanyl 2ml Vial) 50 mcg PRN Q15MIN PRN IV PAIN GREATER THAN 3/10 Last administered on 02/11/17 10:22; Start 02/10/17 at 17:15; Stop 02/11 at 17:14; Status DC Ketorolac Tromethamine (Toradol) 15 mg 1X ONCE IV Last administered on 17:45; Start 02/10/17 at 17:15; Stop 02/10/17 at 17:16; Status DC Ondansetron HCl (Zofran) 4 mg PRN Q8HRS PRN IV NAUSEA/VOMITING; Start 02/10/17 at 17:45; Stop 02/11/17 at 17:44; Status DC Fentanyl Citrate (Fentanyl 2ml Vial) 50 mcg PRN Q2HR PRN IV PAIN Last administered on 02/11/17 16:51; Start 02/10/17 at 17:45; Stop 02/11/17 at 17:44; Status DC Acetaminophen (Tylenol) 650 mg PRN Q4HRS PRN PO FEVER; Start 02/10/17 at 17:45; Stop 02/11/17 at 17:44; Status DC Sodium Chloride 1,000 ml @ 75 mls/hr [id number] IV Last administered on 02/12/17 07:54; Start 02/10/17 at 20:30; Stop 02/12/17 at 19:24; Status DC Lidocaine HCl ([facility] ([facility]) J[facility]) [facility] Last administered on 02/11/17 15:18; Start 02/11/17 at 07:22; Stop 02/11/17 at 07:23; Status DC Iohexol (Omnipaque 300 Mg/ml) 50 ml STK-MED ONCE .ROUTE Last administered on 14:55; Start 02/11/17 at 07:22; Stop 02/11/17 at 07:23; Status DC Lidocaine HCl (Glydo (Lidocaine) Jelly) 6 pau STK-MED ONCE .ROUTE Last administered on 02/11/17 15:18; Start 02/11/17 at 07:24; Stop 02/11/17 at 07:25; Status DC Fentanyl Citrate (Fentanyl 2ml Vial) 50 mcg PRN Q5MIN PRN IV Acute Pain; Start 02/11/17 at 10:45; Stop 02/12/17 at 10:44; Status DC Morphine Sulfate 4 mg PRN Q10MIN PRN IV Moderate Pain; Start 02/11/17 at 10:45; Stop 02/12/17 at 10:44; Status DC Hydromorphone HCl (Dilaudid) 0.4 mg PRN Q10MIN PRN IV Moderate to severe pain; Start 02/11/17 at 10:45; Stop 02/12/17 at 10:44; Status DC Meperidine HCl (Demerol) 12.5 mg PRN Q5MIN PRN IV SHIVERING; Start 02/11/17 at 10:45; Stop 02/12/17 at 10:44; Status DC Prochlorperazine Edisylate (Compazine) 5 mg PRN Q6HRS PRN IV Nausea/Vomiting, 1st Choice; Start 02/11/17 at 10:45; Stop 02/12/17 at 10:44; Status DC Diphenhydramine HCl (Benadryl) 12.5 mg PRN Q2HR PRN IV ITCHING; Start 02/11/17 at 10:45; Stop 02/12/17 at 10:44; Status DC Midazolam HCl (Versed) 2 mg PRN 1X PRN IV PRIOR TO PROCEDURE; Start 02/11/17 at 10:45; Stop 02/12/17 at 10:44; Status DC Midazolam HCl (Versed) 1 mg PRN 1X PRN IV PRIOR TO PROCEDURE; Start 02/11/17 at 10:45; Stop 02/12/17 at 10:44; Status DC Fentanyl Citrate (Fentanyl 2ml Vial) 25 mcg PRN Q5MIN PRN IV X 2 DOSES FOR PAIN ; Start 02/11/17 at 10:45; Stop 02/12/17 at 10:44; Status DC Fentanyl Citrate (Fentanyl 2ml Vial) 50 mcg PRN Q5MIN PRN IV X 2 DOSES FOR PAIN ; Start 02/11/17 at 10:45; Stop 02/12/17 at 10:44; Status DC Lactated Ringer's 1,000 ml @ 125 mls/hr Q8H IV Last administered on 02/11/17t 12:41; Start 02/11/17 at 10:41; Stop 02/11/17 at 22:40; Status DC Lidocaine HCl 2 ml 1X PRN PRN ID IV START; Start 02/11/17 at 10:45; Stop at 10:44; Status DC Cefazolin Sodium/ Dextrose 50 ml @ As Directed STK-MED ONCE IV ; Start 02/11/17 at 12:32; Stop 02/11/17 at 12:33; Status DC Cefazolin Sodium/ Dextrose 50 ml @ 100 mls/hr 1X ONCE IV Last administered on 02/11/17t 14:03; Start 02/11/17 at 12:45; Stop 02/11/17 at 13:14; Status DC Propofol 20 ml @ As Directed STK-MED ONCE IV ; Start 02/11/17 at 13:45; Stop 02/11 at 13:46; Status DC Midazolam HCl (Versed) 2 mg STK-MED ONCE .ROUTE ; Start 02/11/17 at 13:46; Stop 02/11/17 at 13:47; Status DC Fentanyl Citrate (Fentanyl 2ml Vial) 100 mcg STK-MED ONCE .ROUTE ; Start at 13:46; Stop 02/11/17 at 13:47; Status DC Lidocaine HCl (Xylocaine-Mpf 1% Vial) 5 ml STK-MED ONCE .ROUTE ; Start 02/11/17 at 13:46; Stop 02/11/17 at 13:47; Status DC Dexamethasone Sodium Phosphate (Decadron) 20 mg STK-MED ONCE .ROUTE ; Start 02/11 at 13:50; Stop 02/11/17 at 13:51; Status DC Ondansetron HCl (Zofran) 4 mg STK-MED ONCE .ROUTE ; Start 02/11/17 at 13:50; Stop 02/11/17 at 13:51; Status DC Acetaminophen (Tylenol) 650 mg PRN Q6HRS PRN PO FEVER; Start 02/11/17 at 14:30 Ondansetron HCl (Zofran) 4 mg PRN Q6HRS PRN IV NAUSEA/VOMITING; Start 02/11/17 at 14:30; Stop 02/12/17 at 08:47; Status DC Phenylephrine HCl 1 mg STK-MED ONCE IV ; Start 02/11/17 at 14:56; Stop 02/11/17 at 14:57; Status DC Fentanyl Citrate (Fentanyl 2ml Vial) 100 mcg STK-MED ONCE .ROUTE ; Start at 15:02; Stop 02/11/17 at 15:03; Status DC Sevoflurane (Ultane) 60 ml STK-MED ONCE IH ; Start 02/11/17 at 15:22; Stop at 15:23; Status DC Oxycodone/ Acetaminophen (Percocet 7.5/ 325) 1 tab PRN Q6HRS PRN PO PAIN Last administered on 02/12/17 15:15; Start 02/11/17 at 18:00; Stop 02/12/17 at 19:24; Status DC Fentanyl Citrate (Fentanyl 2ml Vial) 25 mcg PRN Q2HR PRN IV PAIN Last administered on 02/12/17 13:35; Start 02/11/17 at 20:15; Stop 02/12/17 at 20:10; Status DC Levofloxacin/ Dextrose 100 ml @ 100 mls/hr Q24H IV Last administered on 09:37; Start 02/12/17 at 09:00; Stop 02/12/17 at 10:44; Status DC Phenazopyridine HCl (Pyridium) 200 mg PRN TID PRN PO URINARY PAIN Last administered on 02/13/17 08:30; Start 02/12/17 at 08:45 Tamsulosin HCl (Flomax) 0.4 mg DAILY PO Last administered on 02/13/17 08:30; Start 02/12/17 at 09:30 Albuterol Sulfate (Ventolin Neb Soln) 2.5 mg 1X ONCE NEB Last administered on 02/12/17 10:30; Start 02/12/17 at 10:30; Stop 02/12/17 at 10:31; Status DC Ceftriaxone Sodium 1 gm/ Sodium Chloride 50 ml @ 100 mls/hr Q24H IV Last administered on 02/12/17 11:28; Start 02/12/17 at 11:00; Stop 02/13/17 at 10:00; Status DC Albuterol Sulfate (Ventolin Neb Soln) 2.5 mg PRN Q4HRS PRN NEB SHORTNESS OF BREATH; Start 02/12/17 at 10:45 Methylprednisolone Sodium Succinate (Solu-Medrol 125mg Vial) 125 mg 1X ONCE IV Last administered on 02/12/17 11:23; Start 02/12/17 at 11:00; Stop 02/12/17 at 11:01; Status DC Senna/Docusate Sodium (Senna Plus) 1 tab BID PO Last administered on 02/13/17 08:30; Start 02/12/17 at 11:00 Docusate Sodium (Colace) 100 mg BID PO Last administered on 02/13/17 08:30; Start 02/12/17 at 11:00 Magnesium Hydroxide (Milk Of Magnesia) 2,400 mg PRN Q12HR PRN PO CONSTIPATION Last administered on 02/13/17 08:31; Start 02/12/17 at 11:00 Ondansetron HCl (Zofran) 4 mg PRN Q6HRS PRN IV NAUSEA/VOMITING; Start 02/12/17 at 13:30 Oxycodone/ Acetaminophen (Percocet 7.5/ 325) 1 tab PRN Q4HRS PRN PO PAIN Last administered on 02/13/17 06:15; Start 02/12/17 at 19:23 Cefpodoxime Proxetil (Vantin) 100 mg BID PO Last administered on 02/13/17 11:13 ; Start 02/13/17 at 10:00 Active Scripts Active Percocet 7.5-325 Mg Tablet (Oxycodone/Acetaminophen) 1 Each Tablet 1 Tab PO Q6HRS PRN Flomax (Tamsulosin Hcl) 0.4 Mg Cap.er.24h 0.4 Mg PO DAILY Hydrocodone-Apap 5-325 (Hydrocodone Bit/Acetaminophen) 1 Each Tablet 1 Tab PO PRN Q4HRS PRN Vitals/I & O Vital Sign - Last 24 Hours 02/12/17 02/12/17 02/12/17 02/12/17 13:35 14:10 15:02 15:15 Temp 97.8 97.8 Pulse 97 Resp 22 B/P (MAP) 142/94 (110) Pulse Ox 93 O2 Delivery Room Air Room Air Room Air Room Air 02/12/17 02/12/17 02/12/17 02/12/17 16:15 19:00 20:00 20:16 Temp 98.1 98.1 Pulse 86 Resp 20 18 B/P (MAP) 128/70 (89) Pulse Ox 95 95 O2 Delivery Room Air Room Air Room Air Room Air O2 Flow Rate 10.0 02/12/17 02/13/17 02/13/17 02/13/17 23:00 00:39 01:36 02:44 Temp 98.1 98.8 98.1 98.8 Pulse 81 93 Resp 20 18 20 B/P (MAP) 138/72 (94) 145/79 (101) Pulse Ox 96 96 95 O2 Delivery Room Air Room Air Room Air O2 Flow Rate 10.0 02/13/17 02/13/17 02/13/17 02/13/17 07:00 07:15 08:00 08:49 Temp 98.1 98.1 Pulse 64 Resp 14 20 20 B/P (MAP) 144/84 (104) Pulse Ox 97 97 O2 Delivery Room Air Room Air Room Air Room Air 02/13/17 11:00 Temp 98.4 98.4 Pulse 66 Resp 14 B/P (MAP) 136/80 (98) Pulse Ox 98 O2 Delivery Room Air Intake and Output 02/12/17 02/12/17 02/13/17 15:00 23:00 07:00 Intake Total 500 ml 850 ml 0 ml Balance 500 ml 850 ml 0 ml BRIGETTE BURGOS MD February 13, 2017 12:09
[2017-02-13 15:00] VITALS: BP 149/76
[2017-02-13 19:00] VITALS: BP 122/70
--- NOTE | 2017-02-13 21:47 | CONS ---
DATE OF CONSULTATION: 02/13/2017 REQUESTING PHYSICIAN: Dr. Howell. REASON FOR CONSULTATION: Leukocytosis. HISTORY OF PRESENT ILLNESS: This is a 37-year-old gentleman with a history of ureteral stone, who was admitted and underwent cystoscopy. The patient was on antibiotics. The patient underwent a cystoscopy with breakup of the stone and stenting done. The patient subsequently had a slight bump in the white count, hence Levaquin was added and the patient did have an ALLERGIC REACTION TO LEVAQUIN with throat swelling, face swelling, and eye swelling, hence 125 mg of Solu-Medrol was given and the white count went up again further, hence the consultation. The patient is alert, awake, and appropriate. Denies any nausea, vomiting, or diarrhea. Denies any breathing difficulty. Denies any other complaints other than slight left lower quadrant pain. The patient says that he is feeling good. He was hoping to "go home today", he says. The patient is receiving Rocephin. Levaquin has been stopped. PAST MEDICAL HISTORY: Positive for ureteral stone. SOCIAL HISTORY: Negative for smoking, alcohol, or illicit drug use. ALLERGIES: NOW IS LISTED LEVAQUIN. CURRENT MEDICATIONS: Reviewed. REVIEW OF SYSTEMS: As per HPI. All other systems reviewed are negative. PHYSICAL EXAMINATION: GENERAL: Alert and oriented gentleman, not in distress. VITAL SIGNS: Stable, afebrile. HEENT: NAD. NECK: Supple. No JVP. No lymphadenopathy. LUNGS: Clear. HEART: S1, S2 regular. ABDOMEN: Benign. EXTREMITIES: No edema or cyanosis. SKIN: Unremarkable. NEUROLOGIC: The patient is neurologically intact. LABORATORY DATA: White count is 28,000. BUN and creatinine is normal. Urinalysis was not impressive for infection. Urine culture is negative. CT scan of the abdomen and pelvis was just done, which is pending. IMPRESSION: 1. Leukocytosis secondary to the steroids and secondary to the procedure, although rule out perforation and/or abscess. 2. Ureteral stone, status post stenting. RECOMMENDATIONS: We would discontinue Rocephin, put him on p.o. Vantin. If the CT is negative for abscess, then the patient can be discharged later today. Thank you very much, Dr. Howell for giving me the opportunity to participate in this patient's care. AYLEEN LAWRENCE MD DR: CLIFF/haily JOB#: [id number] / [id number] ASHLEY
[2017-02-13 23:00] VITALS: BP 158/84
--- NOTE | 2017-02-13 23:42 | CONS ---
DATE OF CONSULTATION: 02/13/2017 REQUESTING PHYSICIAN: Sergio Howell MD REASON FOR CONSULTATION: Leukocytosis. HISTORY OF PRESENT ILLNESS: The patient is a 37-year-old gentleman who has a history of 5-mm left distal urethral stones. He was initially hospitalized in 01/2017 and he was subsequently hospitalized again on 02/10/2017 with continued pain. He was evaluated by Dr. Sergio Howell and the patient underwent left ureteroscopy and laser lithotripsy and stent on 02/11/2017. His preoperative labs were normal on 02/10/2017 with a WBC of 10.3. Post-operative labs on 02/12/2017 revealed a WBC of 21.4. He had received a dose of Levaquin and then he developed an allergic reaction to that and he received a dose of Solu-Medrol. His WBC worsened to 28.3 on 02/13/2017 and hence I was consulted. The patient denies any prior history of hematologic disorders. No nose bleeds or gum bleeding. No hematemesis, melena, hematochezia, no hemoptysis or hematuria. Review of the old records indicates that he had a WBC of 23.1 on 01/30/2017. PAST MEDICAL HISTORY: Renal stones. FAMILY HISTORY: Positive for heart disease. SOCIAL HISTORY: He smokes half a pack of cigarettes per day and I have advised him to quit smoking. He is and he has 5 children. REVIEW OF SYSTEMS: A 12-point review of system was performed. Pertinent positives are mentioned in the history of present illness. Rest of the system review is negative. PHYSICAL EXAMINATION: GENERAL APPEARANCE: The patient is a 37-year-old gentleman who is well developed, well nourished, and in no acute cardiorespiratory distress. VITAL SIGNS: Blood pressure 136/80 and temperature 98.4. HEENT: Atraumatic and normocephalic. Eyes, no icterus. NECK: Supple. CHEST: Bilaterally symmetrical. HEART: S1, S2 normal. ABDOMEN: Soft and nontender. CENTRAL NERVOUS SYSTEM: No focal neurological deficits. LYMPHATICS: No lymphadenopathy. SKIN: No rashes. PSYCHOLOGIC: Mood and affect are appropriate. MUSCULOSKELETAL: No joint effusions. LABORATORY DATA: Labs on 02/13/2017 revealed WBC of 28.3, hemoglobin 11.9, and platelet count 317. Preoperative labs on 02/10/2017 was normal with a WBC of 10.3, hemoglobin 13.6, and platelet count 320. IMPRESSION AND PLAN: 1. Leukocytosis. The patient has acute leukocytosis with normal WBC on 02/10/2017 and a WBC of 21.4 on 02/12/2017, which is suggestive of a reactive process. In addition, he received Solu-Medrol on 02/12/2017, which further increased his WBC to 28.3. Peripheral smear reveals evidence of elevated neutrophils. There is no evidence of immature white cells. I do not suspect a primary myeloproliferative disorder. This is thought to be a reactive process. I agree with the discharge plans and I have advised the patient to follow up with me in about 2 weeks to make sure his WBC comes back to normal. I will plan for further workup depending on his followup WBC counts. Okay to discharge at this time. 2. Renal stones. I discussed with Dr. Howell status post lithotripsy. KIANNA ROTHMAN MD DR: ANDREW/haily JOB#: [id number] / [id number] CHICO Box MD
[2017-02-14] MEDS: oxyCODONE/APAP 7.5/325 1 TAB TABLET PO PRN ×2 (01:48→08:07)
[2017-02-14 04:56] LABS: BASO # 0.1 x10^3/uL (0.0-0.2); BASO % 0 % (0-3); EOS % 1 % (0-3); HEMATOCRIT 37.2 % (39.0-53.0); HEMOGLOBIN 12.2 g/dL (13.0-17.5); LYMPH # 6.2 x10^3/uL (1.0-4.8); LYMPH % 34 % (24-48); MEAN CORPUSCULAR HEMOGLOBIN 29 pg (25-35); MEAN CORPUSCULAR HGB CONC 33 g/dL (31-37); MEAN CORPUSCULAR VOLUME 88 fL (79-100); MONO % 6 % (0-9); NEUT % 59 % (31-73); PLATELET COUNT 320 x10^3/uL (140-400); RED BLOOD COUNT 4.24 x10^6/uL (4.30-5.70); RED CELL DISTRIBUTION WIDTH 14.1 % (11.5-14.5); WHITE BLOOD COUNT 18.5 x10^3/uL (4.0-11.0)
[2017-02-14 05:22] LABS: CALCIUM 8.5 mg/dL (8.5-10.1); CREATININE 0.9 mg/dL (0.7-1.3); POTASSIUM 4.4 mmol/L (3.5-5.1)
[2017-02-14 07:35] VITALS: BP 128/88
[2017-02-14] MEDS: TAMSULOSIN 0.4 MG CAP.ER.24H. PO SCH (08:07)
[2017-02-14] MEDS: CEFPODOXIME PROXETIL 100 MG TABLET. PO SCH (08:08)
[2017-02-14] MEDS: SENNOSIDES/DOCUSATE 8.6/50MG TABLET. PO SCH (09:00)
[2017-02-14] MEDS: DOCUSATE SODIUM 100 MG CAPSULE. PO SCH (09:00)
--- NOTE | 2017-02-14 09:01 | PDOC ---
PROGRESS NOTES Subjective Subjective Pt. feeling well Objective Objective Vital Signs Date Time Temp Pulse Resp B/P (MAP) Pulse Ox O2 Delivery O2 Flow Rate FiO2 02/14/17 07:35 98.1 68 18 128/88 (101) 98 Room Air 98.1 02/13/17 01:36 10.0 Intake and Output 02/14/17 07:00 Intake Total 2880 ml Balance 2880 ml Intake Oral 2880 ml # Bowel Movements 1 Physical Exam Physical Exam Minimal discomfort CT-stent in good position WBC down to 18K Plan Plan of Care May discharge home F/U in 2 weeks in urology office for cystoscopy and stent removal Problems Medical Problems: (1) Ureteral colic Status: Acute Comment Review of Relevant I have reviewed the following items haily (where applicable) has been applied. Labs Laboratory Tests Test 02/13/17 05:45 02/14/17 04:20 White Blood Count 28.3 x10^3/uL (4.0-11.0) 18.5 x10^3/uL (4.0-11.0) Red Blood Count 4.14 x10^6/uL (4.30-5.70) 4.24 x10^6/uL (4.30-5.70) Hemoglobin 11.9 g/dL (13.0-17.5) 12.2 g/dL (13.0-17.5) Hematocrit 36.4 % (39.0-53.0) 37.2 % (39.0-53.0) Mean Corpuscular Volume 88 fL (79-100) 88 fL (79-100) Mean Corpuscular Hemoglobin 29 pg (25-35) 29 pg (25-35) Mean Corpuscular Hemoglobin Concent 33 g/dL (31-37) 33 g/dL (31-37) Red Cell Distribution Width 14.4 % (11.5-14.5) 14.1 % (11.5-14.5) Platelet Count 317 x10^3/uL (140-400) 320 x10^3/uL (140-400) Neutrophils (%) (Auto) 85 % (31-73) 59 % (31-73) Lymphocytes (%) (Auto) 10 % (24-48) 34 % (24-48) Monocytes (%) (Auto) 4 % (0-9) 6 % (0-9) Eosinophils (%) (Auto) 0 % (0-3) 1 % (0-3) Basophils (%) (Auto) 0 % (0-3) 0 % (0-3) Neutrophils # (Auto) 24.0 x10^3uL (1.8-7.7) 10.9 x10^3uL (1.8-7.7) Lymphocytes # (Auto) 2.9 x10^3/uL (1.0-4.8) 6.2 x10^3/uL (1.0-4.8) Monocytes # (Auto) 1.2 x10^3/uL (0.0-1.1) 1.1 x10^3/uL (0.0-1.1) Eosinophils # (Auto) 0.0 x10^3/uL (0.0-0.7) 0.2 x10^3/uL (0.0-0.7) Basophils # (Auto) 0.0 x10^3/uL (0.0-0.2) 0.1 x10^3/uL (0.0-0.2) Sodium Level 143 mmol/L (136-145) 140 mmol/L (136-145) Potassium Level 4.2 mmol/L (3.5-5.1) 4.4 mmol/L (3.5-5.1) Chloride Level 106 mmol/L (98-107) 104 mmol/L (98-107) Carbon Dioxide Level 28 mmol/L (21-32) 31 mmol/L (21-32) Anion Gap 9 (6-14) 5 (6-14) Blood Urea Nitrogen 14 mg/dL (8-26) 14 mg/dL (8-26) Creatinine 0.9 mg/dL (0.7-1.3) 0.9 mg/dL (0.7-1.3) Estimated GFR (Cockcroft-Gault) 96.0 96.0 Glucose Level 110 mg/dL (70-99) 73 mg/dL (70-99) Calcium Level 9.0 mg/dL (8.5-10.1) 8.5 mg/dL (8.5-10.1) Laboratory Tests Test 02/14/17 04:20 White Blood Count 18.5 x10^3/uL (4.0-11.0) Red Blood Count 4.24 x10^6/uL (4.30-5.70) Hemoglobin 12.2 g/dL (13.0-17.5) Hematocrit 37.2 % (39.0-53.0) Mean Corpuscular Volume 88 fL (79-100) Mean Corpuscular Hemoglobin 29 pg (25-35) Mean Corpuscular Hemoglobin Concent 33 g/dL (31-37) Red Cell Distribution Width 14.1 % (11.5-14.5) Platelet Count 320 x10^3/uL (140-400) Neutrophils (%) (Auto) 59 % (31-73) Lymphocytes (%) (Auto) 34 % (24-48) Monocytes (%) (Auto) 6 % (0-9) Eosinophils (%) (Auto) 1 % (0-3) Basophils (%) (Auto) 0 % (0-3) Neutrophils # (Auto) 10.9 x10^3uL (1.8-7.7) Lymphocytes # (Auto) 6.2 x10^3/uL (1.0-4.8) Monocytes # (Auto) 1.1 x10^3/uL (0.0-1.1) Eosinophils # (Auto) 0.2 x10^3/uL (0.0-0.7) Basophils # (Auto) 0.1 x10^3/uL (0.0-0.2) Sodium Level 140 mmol/L (136-145) Potassium Level 4.4 mmol/L (3.5-5.1) Chloride Level 104 mmol/L (98-107) Carbon Dioxide Level 31 mmol/L (21-32) Anion Gap 5 (6-14) Blood Urea Nitrogen 14 mg/dL (8-26) Creatinine 0.9 mg/dL (0.7-1.3) Estimated GFR (Cockcroft-Gault) 96.0 Glucose Level 73 mg/dL (70-99) Calcium Level 8.5 mg/dL (8.5-10.1) Microbiology 02/10/17 Urine Culture - Final, Complete 02/10/17 Urine Culture Result 1 (KECIA) - Final, Complete Medications Current Medications Fentanyl Citrate (Fentanyl 2ml Vial) 50 mcg PRN Q15MIN PRN IV PAIN GREATER THAN 3/10 Last administered on 02/11/17 10:22; Start 02/10/17 at 17:15; Stop 02/11 at 17:14; Status DC Ketorolac Tromethamine (Toradol) 15 mg 1X ONCE IV Last administered on 17:45; Start 02/10/17 at 17:15; Stop 02/10/17 at 17:16; Status DC Ondansetron HCl (Zofran) 4 mg PRN Q8HRS PRN IV NAUSEA/VOMITING; Start 02/10/17 at 17:45; Stop 02/11/17 at 17:44; Status DC Fentanyl Citrate (Fentanyl 2ml Vial) 50 mcg PRN Q2HR PRN IV PAIN Last administered on 02/11/17 16:51; Start 02/10/17 at 17:45; Stop 02/11/17 at 17:44; Status DC Acetaminophen (Tylenol) 650 mg PRN Q4HRS PRN PO FEVER; Start 02/10/17 at 17:45; Stop 02/11/17 at 17:44; Status DC Sodium Chloride 1,000 ml @ 75 mls/hr [id number] IV Last administered on 02/12/17 07:54; Start 02/10/17 at 20:30; Stop 02/12/17 at 19:24; Status DC Lidocaine HCl (Glydo (Lidocaine) Jelly) 6 pau STK-MED ONCE .ROUTE Last administered on 02/11/17 15:18; Start 02/11/17 at 07:22; Stop 02/11/17 at 07:23; Status DC Iohexol (Omnipaque 300 Mg/ml) 50 ml STK-MED ONCE .ROUTE Last administered on 14:55; Start 02/11/17 at 07:22; Stop 02/11/17 at 07:23; Status DC Lidocaine HCl (Glydo (Lidocaine) Jelly) 6 pau STK-MED ONCE .ROUTE Last administered on 02/11/17 15:18; Start 02/11/17 at 07:24; Stop 02/11/17 at 07:25; Status DC Fentanyl Citrate (Fentanyl 2ml Vial) 50 mcg PRN Q5MIN PRN IV Acute Pain; Start 02/11/17 at 10:45; Stop 02/12/17 at 10:44; Status DC Morphine Sulfate 4 mg PRN Q10MIN PRN IV Moderate Pain; Start 02/11/17 at 10:45; Stop 02/12/17 at 10:44; Status DC Hydromorphone HCl (Dilaudid) 0.4 mg PRN Q10MIN PRN IV Moderate to severe pain; Start 02/11/17 at 10:45; Stop 02/12/17 at 10:44; Status DC Meperidine HCl (Demerol) 12.5 mg PRN Q5MIN PRN IV SHIVERING; Start 02/11/17 at 10:45; Stop 02/12/17 at 10:44; Status DC Prochlorperazine Edisylate (Compazine) 5 mg PRN Q6HRS PRN IV Nausea/Vomiting, 1st Choice; Start 02/11/17 at 10:45; Stop 02/12/17 at 10:44; Status DC Diphenhydramine HCl (Benadryl) 12.5 mg PRN Q2HR PRN IV ITCHING; Start 02/11/17 at 10:45; Stop 02/12/17 at 10:44; Status DC Midazolam HCl (Versed) 2 mg PRN 1X PRN IV PRIOR TO PROCEDURE; Start 02/11/17 at 10:45; Stop 02/12/17 at 10:44; Status DC Midazolam HCl (Versed) 1 mg PRN 1X PRN IV PRIOR TO PROCEDURE; Start 02/11/17 at 10:45; Stop 02/12/17 at 10:44; Status DC Fentanyl Citrate (Fentanyl 2ml Vial) 25 mcg PRN Q5MIN PRN IV X 2 DOSES FOR PAIN ; Start 02/11/17 at 10:45; Stop 02/12/17 at 10:44; Status DC Fentanyl Citrate (Fentanyl 2ml Vial) 50 mcg PRN Q5MIN PRN IV X 2 DOSES FOR PAIN ; Start 02/11/17 at 10:45; Stop 02/12/17 at 10:44; Status DC Lactated Ringer's 1,000 ml @ 125 mls/hr Q8H IV Last administered on 02/11/17t 12:41; Start 02/11/17 at 10:41; Stop 02/11/17 at 22:40; Status DC Lidocaine HCl 2 ml 1X PRN PRN ID IV START; Start 02/11/17 at 10:45; Stop at 10:44; Status DC Cefazolin Sodium/ Dextrose 50 ml @ As Directed STK-MED ONCE IV ; Start 02/11/17 at 12:32; Stop 02/11/17 at 12:33; Status DC Cefazolin Sodium/ Dextrose 50 ml @ 100 mls/hr 1X ONCE IV Last administered on 02/11/17t 14:03; Start 02/11/17 at 12:45; Stop 02/11/17 at 13:14; Status DC Propofol 20 ml @ As Directed STK-MED ONCE IV ; Start 02/11/17 at 13:45; Stop 02/11 at 13:46; Status DC Midazolam HCl (Versed) 2 mg STK-MED ONCE .ROUTE ; Start 02/11/17 at 13:46; Stop 02/11/17 at 13:47; Status DC Fentanyl Citrate (Fentanyl 2ml Vial) 100 mcg STK-MED ONCE .ROUTE ; Start at 13:46; Stop 02/11/17 at 13:47; Status DC Lidocaine HCl (Xylocaine-Mpf 1% Vial) 5 ml STK-MED ONCE .ROUTE ; Start 02/11/17 at 13:46; Stop 02/11/17 at 13:47; Status DC Dexamethasone Sodium Phosphate (Decadron) 20 mg STK-MED ONCE .ROUTE ; Start 02/11 at 13:50; Stop 02/11/17 at 13:51; Status DC Ondansetron HCl (Zofran) 4 mg STK-MED ONCE .ROUTE ; Start 02/11/17 at 13:50; Stop 02/11/17 at 13:51; Status DC Acetaminophen (Tylenol) 650 mg PRN Q6HRS PRN PO FEVER; Start 02/11/17 at 14:30 Ondansetron HCl (Zofran) 4 mg PRN Q6HRS PRN IV NAUSEA/VOMITING; Start 02/11/17 at 14:30; Stop 02/12/17 at 08:47; Status DC Phenylephrine HCl 1 mg STK-MED ONCE IV ; Start 02/11/17 at 14:56; Stop 02/11/17 at 14:57; Status DC Fentanyl Citrate (Fentanyl 2ml Vial) 100 mcg STK-MED ONCE .ROUTE ; Start at 15:02; Stop 02/11/17 at 15:03; Status DC Sevoflurane (Ultane) 60 ml STK-MED ONCE IH ; Start 02/11/17 at 15:22; Stop at 15:23; Status DC Oxycodone/ Acetaminophen (Percocet 7.5/ 325) 1 tab PRN Q6HRS PRN PO PAIN Last administered on 02/12/17 15:15; Start 02/11/17 at 18:00; Stop 02/12/17 at 19:24; Status DC Fentanyl Citrate (Fentanyl 2ml Vial) 25 mcg PRN Q2HR PRN IV PAIN Last administered on 02/12/17 13:35; Start 02/11/17 at 20:15; Stop 02/12/17 at 20:10; Status DC Levofloxacin/ Dextrose 100 ml @ 100 mls/hr Q24H IV Last administered on 09:37; Start 02/12/17 at 09:00; Stop 02/12/17 at 10:44; Status DC Phenazopyridine HCl (Pyridium) 200 mg PRN TID PRN PO URINARY PAIN Last administered on 02/13/17 21:18; Start 02/12/17 at 08:45 Tamsulosin HCl (Flomax) 0.4 mg DAILY PO Last administered on 02/14/17 08:07; Start 02/12/17 at 09:30 Albuterol Sulfate (Ventolin Neb Soln) 2.5 mg 1X ONCE NEB Last administered on 02/12/17 10:30; Start 02/12/17 at 10:30; Stop 02/12/17 at 10:31; Status DC Ceftriaxone Sodium 1 gm/ Sodium Chloride 50 ml @ 100 mls/hr Q24H IV Last administered on 02/12/17 11:28; Start 02/12/17 at 11:00; Stop 02/13/17 at 10:00; Status DC Albuterol Sulfate (Ventolin Neb Soln) 2.5 mg PRN Q4HRS PRN NEB SHORTNESS OF BREATH; Start 02/12/17 at 10:45 Methylprednisolone Sodium Succinate (Solu-Medrol 125mg Vial) 125 mg 1X ONCE IV Last administered on 02/12/17 11:23; Start 02/12/17 at 11:00; Stop 02/12/17 at 11:01; Status DC Senna/Docusate Sodium (Senna Plus) 1 tab BID PO Last administered on 02/13/17 08:30; Start 02/12/17 at 11:00 Docusate Sodium (Colace) 100 mg BID PO Last administered on 02/13/17 08:30; Start 02/12/17 at 11:00 Magnesium Hydroxide (Milk Of Magnesia) 2,400 mg PRN Q12HR PRN PO CONSTIPATION Last administered on 02/13/17 08:31; Start 02/12/17 at 11:00 Ondansetron HCl (Zofran) 4 mg PRN Q6HRS PRN IV NAUSEA/VOMITING; Start 02/12/17 at 13:30 Oxycodone/ Acetaminophen (Percocet 7.5/ 325) 1 tab PRN Q4HRS PRN PO PAIN Last administered on 02/14/17 08:07; Start 02/12/17 at 19:23 Cefpodoxime Proxetil (Vantin) 100 mg BID PO Last administered on 02/14/17 08:08 ; Start 02/13/17 at 10:00 Active Scripts Active Percocet 7.5-325 Mg Tablet (Oxycodone/Acetaminophen) 1 Each Tablet 1 Tab PO Q6HRS PRN Flomax (Tamsulosin Hcl) 0.4 Mg Cap.er.24h 0.4 Mg PO DAILY Hydrocodone-Apap 5-325 (Hydrocodone Bit/Acetaminophen) 1 Each Tablet 1 Tab PO PRN Q4HRS PRN Vitals/I & O Vital Sign - Last 24 Hours 02/13/17 02/13/17 02/13/17 02/13/17 11:00 12:51 15:00 17:40 Temp 98.4 98.6 98.4 98.6 Pulse 66 72 Resp 14 16 B/P (MAP) 136/80 (98) 149/76 (100) Pulse Ox 98 99 O2 Delivery Room Air Room Air Room Air Room Air 02/13/17 02/13/17 02/13/17 02/13/17 19:00 20:00 21:19 22:20 Temp 98.3 98.3 Pulse 81 Resp 20 18 B/P (MAP) 122/70 (87) Pulse Ox 96 O2 Delivery Room Air Room Air Room Air 02/13/17 02/14/17 02/14/17 02/14/17 23:00 01:48 04:09 07:35 Temp 98.3 98.1 98.3 98.1 Pulse 81 68 Resp 20 18 18 18 B/P (MAP) 158/84 (108) 128/88 (101) Pulse Ox 94 98 O2 Delivery Room Air Room Air Room Air Room Air Intake and Output 02/13/17 02/13/17 02/14/17 15:00 23:00 07:00 Intake Total 960 ml 1920 ml 0 ml Balance 960 ml 1920 ml 0 ml CHICO TAYLOR MD February 14, 2017 09:00
--- NOTE | 2017-02-14 10:27 | PDOC ---
Infectious Disease Note Subjective Subjective pt feeling good, ready to go says CECILIA BROOKS GEN: Denies fevers, chills, sweats HEENT: Denies blurred vision, sore throat CV: Denies chest pain RESP: Denies shortness of air, cough GI: Denies n/v/d NEURO: Denies confusion, dizziness MSK: Denies weakness, joint pain/swelling Vital Sign Vital Signs Vital Signs Date Time Temp Pulse Resp B/P (MAP) Pulse Ox O2 Delivery O2 Flow Rate FiO2 02/14/17 07:35 98.1 68 18 128/88 (101) 98 Room Air 98.1 Physical Exam PHYSICAL EXAM GENERAL: NAD, Alert HEENT: PERRL, OC/OP NECK: Supple, no JVD, no LN LUNGS: Clear HEART: S1S2, no gallop, no murmur ABD: Soft, NT, no organomegaly, no rebound EXT: No edema, no cyanosis PROTOTYPE CARPENTER: Alert, oriented x 3, no focal neurologic deficit SKIN: No rash IV: ok Labs Lab Laboratory Tests Test 02/14/17 04:20 White Blood Count 18.5 x10^3/uL (4.0-11.0) Red Blood Count 4.24 x10^6/uL (4.30-5.70) Hemoglobin 12.2 g/dL (13.0-17.5) Hematocrit 37.2 % (39.0-53.0) Mean Corpuscular Volume 88 fL (79-100) Mean Corpuscular Hemoglobin 29 pg (25-35) Mean Corpuscular Hemoglobin Concent 33 g/dL (31-37) Red Cell Distribution Width 14.1 % (11.5-14.5) Platelet Count 320 x10^3/uL (140-400) Neutrophils (%) (Auto) 59 % (31-73) Lymphocytes (%) (Auto) 34 % (24-48) Monocytes (%) (Auto) 6 % (0-9) Eosinophils (%) (Auto) 1 % (0-3) Basophils (%) (Auto) 0 % (0-3) Neutrophils # (Auto) 10.9 x10^3uL (1.8-7.7) Lymphocytes # (Auto) 6.2 x10^3/uL (1.0-4.8) Monocytes # (Auto) 1.1 x10^3/uL (0.0-1.1) Eosinophils # (Auto) 0.2 x10^3/uL (0.0-0.7) Basophils # (Auto) 0.1 x10^3/uL (0.0-0.2) Sodium Level 140 mmol/L (136-145) Potassium Level 4.4 mmol/L (3.5-5.1) Chloride Level 104 mmol/L (98-107) Carbon Dioxide Level 31 mmol/L (21-32) Anion Gap 5 (6-14) Blood Urea Nitrogen 14 mg/dL (8-26) Creatinine 0.9 mg/dL (0.7-1.3) Estimated GFR (Cockcroft-Gault) 96.0 Glucose Level 73 mg/dL (70-99) Calcium Level 8.5 mg/dL (8.5-10.1) Objective Assessment Leukocytosis likely sec to steroids and reactive from procedure Ureteral stone s/p stenting Allergic reaction to levaquin Plan Plan of Care man tubbs pt can be d/c ed d/w AYLEEN Jones MD February 14, 2017 10:27
[2017-02-14] MEDS ORDERED: PHEN-373 PO (11:00)
[2017-02-14] MEDS ORDERED: OXYC-244 PO (11:00)
[2017-02-14] MEDS ORDERED: CEFP100T PO (11:00)
[2017-02-14] MEDS ORDERED: TAMS0.4C97 PO (11:00)
[2017-02-14] MEDS ORDERED: DOCU-27 PO (11:00)
[2017-02-14 11:05] VITALS: BP 133/84
--- NOTE | 2017-02-14 12:21 | PDOC3 ---
Discharge Summary [facility] Date of Admission: February 10, 2017 Discharge Date: February 14, 2017 Admitting Diagnosis 1. left flank pain with left ureteral stone 5mm post cystoscopy and lisotripsy and left ureteral stent done on 02/11 2. tobaccoism 3. skin rash 11/14 levaquin possibly 4. Leukocytosis post op, steroid Problems: Final Diagnosis CONSULTS uro Procedures post cystoscopy and lisotripsy and left ureteral stent done on 02/11 Brief Hospital Course Mr. Jovel is a 37 old M with left ureteral stone diagonsed 1 week ago, presented with worsening left flank pain . He has left ureteral stone 5mm, got cystoscopy and lisotripsy and left ureteral stent done on 02/11. WBC HIGHER ,then levaquin started, but had a red face and upper chest redness reaction. tolerate well with ceftriaxone and vantin. dc home with vantin for anotehr 5ds, cont flomax, fu with uro in 2 weeks to remove the stent. dc time 35min. Physical Exam General: Alert, Oriented X3, Cooperative Heart: Regular rate, Normal S1, Normal S2 Lungs: Clear Abdomen: Normal bowel sounds, Soft, Other (left flank tenderness) Patient History: Patient reports no known family medical history. Problems: Disposition home CONDITION AT DISCHARGE: Improved Diet regular Scheduled Cefpodoxime Proxetil (Cefpodoxime Proxetil), 100 MG PO BID Docusate Sodium (Colace), 100 MG PO BID Tamsulosin Hcl (Flomax), 0.4 MG PO DAILY Scheduled PRN Hydrocodone Bit/Acetaminophen (Hydrocodone-Apap 5-325 ), 1 TAB PO PRN Q4HRS PRN for PAIN Oxycodone/Apap 7.5-325 (Percocet 7.5-325 Mg Tablet), 1 TAB PO Q6HRS PRN for PAIN Phenazopyridine Hcl (Phenazopyridine Hcl), 200 MG PO PRN TID PRN for URINARY PAIN Follow Up uro in 2 weeks BRIGETTE BURGOS MD February 14, 2017 12:21
[2017-02-18 17:15] LABS: CA OXALATE DIHYDRATE 20 % (.); CA OXALATE MONOHYDR 70 % (.); COLOR Tan (.)
== END 2017-02-14 11:50 | disposition home or self-care (01) | DRG 670 ==
LOC: ER 15:29 → 5 SOUTH 17:25
PROVIDERS: ADMIT Internal Medicine; ATTEND Internal Medicine
PROC: 0T778DZ Dilation of Left Ureter with Intraluminal Device, Via Natural or Artificial Opening Endoscopic (ICD-10-PCS; 2017-02-11)
PROC: BT1F1ZZ Fluoroscopy of Left Kidney, Ureter and Bladder using Low Osmolar Contrast (ICD-10-PCS; 2017-02-11)
PROC: 0TC78ZZ Extirpation of Matter from Left Ureter, Via Natural or Artificial Opening Endoscopic (ICD-10-PCS; principal; 2017-02-11 13:15)
DX: N20.2 Calculus of kidney with calculus of ureter (principal); F17.210 Nicotine dependence, cigarettes, uncomplicated; T38.0X5A Adverse effect of glucocorticoids and synthetic analogues, initial encounter; M19.90 Unspecified osteoarthritis, unspecified site; D72.829 Elevated white blood cell count, unspecified; Z87.442 Personal history of urinary calculi; Z88.1 Allergy status to other antibiotic agents
CPT/HCPCS: 36415; 74176; 74420; 76770; 80048; 81001; 82365; 85007; 85027; 87086; 94250; 94640; 94760; 96374; C1769; C2617; J0690; J0696; J1100; J1885; J1956; J2250; J2370; J2405; J2704; J2930; J3010; J7030; J7120; Q9967; 99285-25